=== PATIENT | male | born 1965 | race Caucasian/White ===

== ENCOUNTER 2016-09-20 15:02 | Inpatient (IN) ==
--- NOTE | 2016-09-20 15:23 | ED EKG INTERP ---
EKG Interpretation - EKG Time of EKG reading by physician:: 15:16 EKG Read and Signed by:: Erik Hicks EKG Interpretation (*Must complete 3 of following elements*): Abnormal ( possible lae; nonspecific intraventricular block; RVH; inferior infarct age undetermined; anterolateral infarct age undetermined) Rate: 113 Rhythm: sinus tachy [place]: normal QRS: other (RVH) Attestation - Scribe Verification/Attestation Scribe:: Linda Oquendo Acting as Scribe for:: Erik Hicks Scribe documention review:: This chart was documented by a scribe and accurately reflects the service the provider performed and the decisions made by the provider.
[2016-09-20 15:43] LABS: MANUAL DIFF NEEDED? NO
[2016-09-20 15:53] LABS: BASO% 0.3 % (0.0-0.8); EOS# 0.09 X1000 (0.0-0.7); EOS% 1.2 % (0.0-10.0); HEMATOCRIT 43.5 % (42.0-52.0); HEMOGLOBIN 14.3 g/dL (14.0-18.0); LYMPH# 1.09 X1000 (1.2-3.4); LYMPH% 14.4 % (20.5-51.1); MCH 29.4 PG (27-31); MCHC 32.9 g/dL (33-37); MCV 89.5 FL (81-99); MONO# 0.44 X1000 (0.11-0.59); MONO% 5.8 % (1.7-9.3); NEUT% 78.3 % (42.2-75.2); PLT 231 X1000 (130-400); RBC 4.86 XMIL (4.7-6.1)
[2016-09-20 16:01] LABS: AGAP 12; ALBUMIN 3.9 g/dL (3.5-5.0); ALKALINE PHOSPHATASE 145 U/L (32-122); BUN 27 mg/dL (8-22); CALCIUM 8.6 mg/dL (8.8-10.2); CHLORIDE 96 mmol/L (98-107); CK PROFILE 258 U/L (24-204); COSMO 292; GOT 30 U/L (10-34); GPT 31 U/L (10-44); MAGNESIUM 1.8 mg/dL (1.5-2.7); SODIUM 136 mmol/L (136-145); TCO2 28 mmol/L (25-35); TOTAL BILIRUBIN 0.69 mg/dL (0.20-1.00); TOTAL PROTEIN 6.8 g/dL (6.3-8.3)
[2016-09-20 16:12] LABS: INR 1.05; PROTIME 10.7 Seconds (9.2-11.7); PTT 22.6 Seconds (22.0-36.0)
[2016-09-20 16:37] LABS: CK INDEX 4.2 (0.0-2.5); CK-MB 10.86 ng/mL (0.0-5.0)
--- NOTE | 2016-09-20 16:55 | Diag Imaging Result Document ---
PROCEDURE NAME: CHEST-2 VIEWS - 09/20/2016 TWO VIEWS OF THE CHEST: FINDINGS: There are small pleural effusions. The heart size is at the upper limits of normal. There is a pacemaker on the left. There is no evidence of acute pulmonary disease. IMPRESSION: Small bilateral pleural effusions.
[2016-09-20] MEDS ORDERED: NS 1,000 ML IV ONE (17:29)
[2016-09-20] MEDS ORDERED: HUMULIN R IV ONE (17:40)
[2016-09-20] MEDS ORDERED: LASIX IV ONE (17:40)
[2016-09-20] MEDS ORDERED: NITROGLYCERIN TOP ONE (17:42)
--- NOTE | 2016-09-20 17:42 | PROVIDER DOCUMENTATION ---
HPI-Chest Pain - General Source: patient - History of Present Illness-CP Location: reports: central Chest Pain Radiation: reports: no radiation Quality of Pain: reports: tightness Severity in ED: moderate <Linda Oquendo - Last Filed: 09/20/16 17:44> <Aba Porter - Last Filed: 09/20/16 18:08> <Erik Hicks - Last Filed: 09/20/16 18:19> - General Chief Complaint: Chest Pain Stated Complaint: CP Time Seen by Provider: 09/20/16 17:27 Allergies/Adverse Reactions: Patient Allergies Allergy/AdvReac Type Severity Reaction Status Date / Time Sulfa (Sulfonamide AdvReac Intermediate NAUSEA/VOMI Verified 09/20/16 18:01 Antibiotics) TING Home Medications: Home Medication List Medication Instructions Recorded Confirmed Last Taken Type ENALApril [Vasotec] 20 mg PO BID 12/15/12 12/27/13 12/27/13 History Glimepiride 4 mg PO DAILY 12/15/12 12/27/13 12/27/13 History Metformin [Glucophage] 500 mg PO BID CC 12/15/12 12/27/13 12/27/13 History Spironolactone 50 mg PO HS 12/15/12 12/27/13 12/27/13 History Carvedilol [Coreg] 6.25 mg PO BID 09/30/13 12/27/13 12/27/13 History Esomeprazole [Nexium] 40 mg PO DAILY 09/30/13 12/27/13 12/27/13 History Furosemide [Lasix] 60 mg PO BID #60 tablet 12/30/13 Unknown Rx Insulin Aspart Prot/Insuln Asp 15 unit SQ QAM #2 vial 12/30/13 Unknown Rx [Novolog Mix 70-30 Vial] Insulin NPH Hum/Reg Insulin Hm 10 unit SQ QPM #0 ml 12/30/13 Unknown Rx [Novolin 70-30 100 Unit/ml Vial] - History of Present Illness-CP Nature of Presenting Problem: Hx of chf and pacemaker that presents to er with cc of cp x 1 week intermittent lasting 1 hour at a time reports tightness. Reports sob,orthopnea,pnd,edema, weight gain 6 lbs in a week, and leg cramps. 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 ( Linad Oquendo) Review of Systems - Adult - REVIEW OF SYSTEMS - ADULT Constitutional: denies: chills, fever, fatique Eyes: reports: no symptoms reported Ears, Nose, Mouth & Throat: denies: ear pain, sinus problem, throat pain Cardiovascular: reports: chest pain, edema, orthopnea, PND. denies: heart murmur, irregular heart rate, palpitations, syncope Respiratory: reports: shortness of breath. denies: cough, pleurisy, wheezing Gastrointestinal: denies: abdominal pain, hematemesis, diarrhea, nausea, vomiting Genitourinary: reports: no symptoms reported Musculoskeletal: reports: frequent leg cramps. denies: bone pain, joint swelling, neck pain Integumentary: denies: hives, hair loss, mole changes Neurological: denies: dizziness/vertigo, numbness, paresthesia, tremors Psychiatric: denies: anti-depressant use, insomnia, panic attacks Endocrine: denies: change in skin pigment, cold intolerance, heat intolerance, increased thirst, polyuria Hematologic/Lymphatic: reports: no symptoms reported Allergic/Immunologic: reports: no symptoms reported All Other Systems: Reviewed and Negative <Linda Oquendo - Last Filed: 09/20/16 17:44> Past History - Adult - PAST MEDICAL HISTORY-ADULT Review of Records: reports: Nursing Assessment Review, Medications Reviewed Major Childhood Illnesses: reports: denies history Cardiovascular: reports: CAD, CHF, HTN, hyperlipidemia Respiratory: reports: other (sleep apnea) Gastrointestinal: reports: denies history Obstetrical/Gynecological: reports: denies history Genitourinary: reports: denies history Musculoskeletal: reports: denies history Neurological: reports: denies history Psychiatric: reports: denies history Endocrine/Immune: reports: Diabetes Other Conditions: reports: denies history - PRIOR SURGERIES/PROCEDURES Surgical/Procedure History: reports: appendectomy, other (pacemaker) - PRIOR HOSPITALIZATIONS Prior Hospitalizations: reports: none - IMMUNIZATION STATUS Childhood Immunizations: See Nurse Assessment Flu Vaccine: See Nurse Assessment - FAMILY HISTORY Family History: reviewed, not pertinent - SOCIAL HISTORY Smoking: less than 1 pack/day Provider spent 3-5 mins advising pt. on dangers of tobacco.: Discussed manners to quit use, and f/u contacts for add'l counseling. Substance Use: none/never <Linda Oquendo - Last Filed: 09/20/16 17:44> Physical Exam-General - PHYSICAL EXAM-ADULT Initial Vital Signs Reviewed: Yes - CONSTITUTIONAL General Appearance: appears well, alert, mild distress - EYES Eyes: PERRL/EOMI - HEAD, EARS, NOSE, MOUTH & THROAT HENMT: moist mucous membranes, TMs normal, pharynx normal - NECK Neck: non-tender, full range of motion, supple - RESPIRATORY Respiratory: chest non-tender, lungs clear, normal breath sounds, no pleuratic chest pain - CARDIOVASCULAR Cardiovascular: JVD, tachycardia - CHEST (BREASTS) Chest/Breast: other (healed scar from pacemaker left chest) - GASTROINTESTINAL (ABDOMEN) Abdominal Exam: normal bowel sounds, non tender, soft, no organomegaly, no pulsatile mass - LYMPHATIC Lymphatic: no adenopathy - MUSCULOSKELETAL Back Exam: normal inspection, no CVA tenderness, no vertebral tenderness Extremity: normal range of motion, non-tender, normal gait, no calf tenderness, normal capillary refill, pedal edema (4+ bilateral) Peripheral Pulses: dorsalis-pedis (R): 2+, dorsalis-pedis (L): 2+ - SKIN Integumentary: normal color, normal turgor, warm/dry - PSYCHIATRIC Psych/Mental Status: normal mood/affect, normal thought content, normal thought process, oriented x 3 <Linda Oquendo - Last Filed: 09/20/16 17:44> Progress - XRAY 1 XRAY: Bilateral XRAY Study: Chest Impression: Abnormal (small bilateral pleural effusions) <Linda Oquendo - Last Filed: 09/20/16 17:44> - CONSULTS/PCP/HOSPITALIST Notification #1 *Consult/PCP/Hospitalist*: Dr. Blank Time Discussed: 18:07 Consult Disposition: Admit - CHANGE OF SHIFT REPORT (ED Provider) Report Given and Care Transferred to:: Dr. López Time of Transfer: 18:00 Items Pending: Physician Consult/Arrival <Aba Porter - Last Filed: 09/20/16 18:08> - CONSULTS/PCP/HOSPITALIST Notification #1 *Consult/PCP/Hospitalist*: Dann Moran Discussed: 18:18 Consult Disposition: Will see in ED, Admit <Erik Hicks - Last Filed: 09/20/16 18:19> - PLAN OF CARE/RESULTS Progress/Plan/Lab Results: Orders Category Date Time Status CHEST-2 VIEWS [RAD] Stat Exams 09/20/16 15:19 Completed CBC WITH ELECTRONIC DIFF [HEME] Stat Lab 09/20/16 15:25 Completed CK PROFILE [SP CHEM] Stat Lab 09/20/16 15:25 Completed COMPREHENSIVE METABOLIC PANEL [CHEM] Stat Lab 09/20/16 15:25 Completed D-DIMER [CHEM] Stat Lab 09/20/16 15:25 Completed MAGNESIUM [CHEM] Stat Lab 09/20/16 15:25 Completed PRO B-NATRIURETIC PEPTIDE Stat Lab 09/20/16 15:25 Completed PROTIME WITH INR [COAG] Stat Lab 09/20/16 15:25 Completed PTT [COAG] Stat Lab 09/20/16 15:25 Completed TROPONIN T Stat Lab 09/20/16 15:25 Completed 0.9% Sodium Chloride Inj [Ns] 1,000 ml Med 09/20/16 17:29 Active IV 999 mls/hr EKG [EKG] Stat Ther 09/20/16 15:19 Ordered Vital Signs - 24 hr 09/20/16 15:11 Temperature 98.1 F Pulse Rate 112 H Respiratory 18 Rate Blood Pressure 139/86 O2 Sat by Pulse 100 Oximetry Laboratory Tests 09/20/16 09/20/16 09/20/16 15:25 15:25 15:25 WBC 7.58 RBC 4.86 Hgb 14.3 Hct 43.5 MCV 89.5 MCH 29.4 MCHC 32.9 L RDW Std Deviation 13.1 Plt Count 231 MPV 11.0 H Immature Gran % (Auto) 0.0 Neut % (Auto) 78.3 H Lymph % (Auto) 14.4 L Calvert % (Auto) 5.8 Eos % (Auto) 1.2 Baso % (Auto) 0.3 Immature Gran # (Auto) 0.00 Neut # (Auto) 5.94 Lymph # (Auto) 1.09 L Calvert # (Auto) 0.44 Eos # (Auto) 0.09 Baso # (Auto) 0.02 PT INR PTT (Actin FS) D-Dimer 1.79 H Sodium 136 Potassium 4.0 Chloride 96 L Carbon Dioxide 28 Anion Gap 12 BUN 27 H Creatinine 1.6 H BUN/Creatinine Ratio 17 Glucose 373 H Calculated Osmolality 292 Calcium 8.6 L Magnesium 1.8 Total Bilirubin 0.69 AST 30 ALT 31 Alkaline Phosphatase 145 H Creatine Kinase 258 H Creatine Kinase Index 4.2 H CK-MB (CK-2) 10.86 H Troponin T Vrf-B-Jistbikuxyb Pept Total Protein 6.8 Albumin 3.9 Globulin 2.9 Albumin/Globulin Ratio 1.3 09/20/16 09/20/16 09/20/16 15:25 15:25 15:25 WBC RBC Hgb Hct MCV MCH MCHC RDW Std Deviation Plt Count MPV Immature Gran % (Auto) Neut % (Auto) Lymph % (Auto) Calvert % (Auto) Eos % (Auto) Baso % (Auto) Immature Gran # (Auto) Neut # (Auto) Lymph # (Auto) Calvert # (Auto) Eos # (Auto) Baso # (Auto) PT 10.7 INR 1.05 PTT (Actin FS) 22.6 D-Dimer Sodium Potassium Chloride Carbon Dioxide Anion Gap BUN Creatinine BUN/Creatinine Ratio Glucose Calculated Osmolality Calcium Magnesium Total Bilirubin AST ALT Alkaline Phosphatase Creatine Kinase Creatine Kinase Index CK-MB (CK-2) Troponin T 0.020 Awn-V-Vzqopriikpa Pept 1344 H Total Protein Albumin Globulin Albumin/Globulin Ratio (Linda Oquendo) Departure <Linda Oquendo - Last Filed: 09/20/16 17:44> - Departure Time of Disposition Order: 18:08 Certified Medical Emergency: Emergent <Aba Porter - Last Filed: 09/20/16 18:08> - Departure Time of Disposition Order: 18:19 Certified Medical Emergency: Emergent <Erik Hicks - Last Filed: 09/20/16 18:19> - Departure DIAGNOSIS: Renal insufficiency CHF (congestive heart failure) Qualifiers: Congestive heart failure type: unspecified congestive heart failure type Congestive heart failure chronicity: unspecified congestive heart failure chronicity Qualified Code(s): I50.9 - Heart failure, unspecified Disposition: ADMITTED INPATIENT 09 Condition: Stable Referrals: Rayo Pagan MD [Primary Care Provider] - Attestation - Scribe Verification/Attestation Scribe:: Linda Oquendo Acting as Scribe for:: Erik Hicks Scribe documention review:: This chart was documented by a scribe and accurately reflects the service the provider performed and the decisions made by the provider. <Linda Oquendo - Last Filed: 09/20/16 17:44> - Scribe Verification/Attestation Scribe:: Aba Porter Acting as Scribe for:: Syd López Scribe documention review:: This chart was documented by a scribe and accurately reflects the service the provider performed and the decisions made by the provider. - Scribe Verification/Attestation #2 Shift Change Time: 18:00 Scribe Name: Aba Porter Acting as Scribe for:: Syd López <Aba Porter - Last Filed: 09/20/16 18:08> Physician Attestation - Physician Attestation I, the provider, attest to the following statement:: Erik Hicks Physician documentation Attestation:: This documentation recorded by the scribe accurately reflects the service I personally performed and the decisions made by me. <Erik Hicks - Last Filed: 09/20/16 18:19>
[2016-09-20] MEDS ORDERED: ASPIRIN ONE (17:50)
[2016-09-20] MEDS ORDERED: ASPIRIN PO ONE (18:08)
[2016-09-20] MEDS ORDERED: NORCO-5 PO ONE (20:46)
[2016-09-20 21:17] LABS: HEMOGLOBIN A1C 11.2 % (4.8-6.0)
[2016-09-20] MEDS ORDERED: VOLTAREN 1% GEL TOP ONE (22:56)
[2016-09-20] MEDS ORDERED: ZOFRAN IV PRN (22:56)
[2016-09-20] MEDS ORDERED: SALINE LOCK IV FLUID XX ONE (22:56)
[2016-09-20] MEDS ORDERED: TYLENOL PO PRN (22:56)
[2016-09-20] MEDS ORDERED: NORCO-7.5 PO PRN (22:56)
[2016-09-21 00:21] LABS: AGAP 14; BUN 29 mg/dL (8-22); CALCIUM 8.9 mg/dL (8.8-10.2); CHLORIDE 97 mmol/L (98-107); CK PROFILE 205 U/L (24-204); COSMO 288; MAGNESIUM 1.8 mg/dL (1.5-2.7); SODIUM 140 mmol/L (136-145); TCO2 29 mmol/L (25-35)
[2016-09-21 00:42] LABS: CK INDEX 4.4 (0.0-2.5); CK-MB 9.03 ng/mL (0.0-5.0)
[2016-09-21] MEDS: LASIX IV SCH ×4 (00:43→20:11)
[2016-09-21] MEDS: SODIUM CHLORIDE 0.9% INJ SCH ×2 (00:43→20:11)
[2016-09-21] MEDS: PROTONIX IV SCH ×2 (00:43→20:11)
[2016-09-21 01:47] LABS: URINE CULTURE NEEDED? NO; URINE MICRO REVIEW NEEDED? NO; URINE SOURCE CLEAN CATCH
[2016-09-21 01:52] LABS: BILIRUBIN URINE NEGATIVE (NEGATIVE); BLOOD URINE SMALL (NEGATIVE); COLOR YELLOW; GLUCOSE URINE TRACE mg/dL (NEGATIVE); LEUKOCYTES URINE NEGATIVE (NEGATIVE); NITRITE URINE NEGATIVE (NEGATIVE); PH URINE 5.5; PROTEIN URINE 30 mg/dL (NEGATIVE); SP GRAVITY URINE 1.015; TURBIDITY URINE CLEAR (CLEAR); UROBILINOGEN URINE NORMAL (NORMAL)
[2016-09-21 01:53] LABS: UR EPITHELIAL CELLS <10 /HPF (<10); URINE BACTERIA NEGATIVE /HPF; URINE RBC <10 /HPF (<10); URINE WBC <10 /HPF (<10)
[2016-09-21] MEDS: HUMALOG SUBQ SCH ×5 (06:22→23:05)
[2016-09-21 07:12] LABS: MANUAL DIFF NEEDED? NO
--- NOTE | 2016-09-21 07:12 | HISTORY AND PHYSICAL ---
ADDENDUM TO HISTORY AND PHYSICAL: I would like to add that: We have placed an order to have the patient's pacemaker/defibrillator interrogated. The patient did report that he felt over the past week or so that he has had an irregular heartbeat and felt this might be related to his pacemaker. He states that his defibrillator has not fired. This order has been placed and we will await their evaluation of this pacemaker as well as cardiology's evaluation and our recommendations. Dictated by MARIMAR Velazco for Lance Killian MD
[2016-09-21 07:20] LABS: BASO% 0.3 % (0.0-0.8); EOS# 0.07 X1000 (0.0-0.7); EOS% 0.9 % (0.0-10.0); HEMATOCRIT 40.2 % (42.0-52.0); HEMOGLOBIN 13.1 g/dL (14.0-18.0); LYMPH# 0.78 X1000 (1.2-3.4); LYMPH% 10.2 % (20.5-51.1); MCH 29.2 PG (27-31); MCHC 32.6 g/dL (33-37); MCV 89.7 FL (81-99); MONO# 0.43 X1000 (0.11-0.59); MONO% 5.7 % (1.7-9.3); MPV 11.1 FL (7.4-10.4); NEUT% 82.9 % (42.2-75.2); PLT 206 X1000 (130-400); RBC 4.48 XMIL (4.7-6.1)
[2016-09-21 07:46] LABS: AGAP 14; BUN 31 mg/dL (8-22); CALCIUM 8.8 mg/dL (8.8-10.2); CHLORIDE 96 mmol/L (98-107); COSMO 297; MAGNESIUM 1.7 mg/dL (1.5-2.7); POTASSIUM 4.1 mmol/L (3.5-5.1); SODIUM 137 mmol/L (136-145); TCO2 27 mmol/L (25-35)
--- NOTE | 2016-09-21 08:08 | HISTORY AND PHYSICAL ---
PRIMARY CARE PROVIDER: Rayo Pagan MD SNOW REMOVAL/PLOWING: Tom Mcallister MD CHIEF COMPLAINT: Chest pain. HISTORY OF PRESENT ILLNESS: Mr. Ace is a 51-year-old male who presented to the emergency room [facility] with the complaints of intermittent chest pain times one week. The patient reports that the chest pain is a tightness in nature and is across his left chest. He does not report any radiation of this pain at this time. He does report associated symptoms of shortness of breath times three days, palpitations, and bilateral lower leg swelling and cramps. The patient reported that recently approximately one month ago he was treated for a cold/upper respiratory infection for which he was placed on a decongestant. The patient states that since then he has not been well. He reports that he did have some complications with urinary output secondary to decongestant use, though reported that he was given a prescription for Flomax and that this has since improved. He does report that he normally takes Lasix 20 mg twice a day, except that over the past two weeks due to increased swelling in his legs he has increased this himself to 60 mg p.o. daily. The patient states that he does have sleep apnea and does use two pillows to sleep at night. The patient did report that his sleep apnea has improved since he has lost 70 pounds over the past eight months. He also states that he is supposed to take Enalapril and Coreg for his congestive heart failure and hypertension, though states that his blood pressure is normally within normal limits and because of this he decided not to take these medicines. The patient does state that he has felt like he has had an irregular heart beat at times over the past week. He states that he thinks his pacemaker may not be working right. He did report that he did try to contact Dr. Mcallister's office to come in and have his pacemaker checked though due to scheduling this was unable to be performed. The patient does have a known history of having congestive heart failure with severe dilation with severely depressed left ventricular function and an ejection fraction of 20% on his last echocardiogram in December of 2015. The patient denies any headache, dizziness, light-headedness, cough, abdominal pain, nausea, vomiting, diarrhea or constipation. He denies any bloody or black, tarry stools. He denies any dysuria or urinary frequency. The patient states that he has been having adequate urine output. Other than the swelling and cramping in his legs, the patient denies any numbness or tingling in the extremities. Upon evaluation in the emergency room the patient was found to have an elevated CK and a troponin of 0.02. The patient's EKG did show sinus tachycardia at a rate of 113 with a nonspecific intraventricular block and right ventricular hypertrophy. He also does appear to have an acute kidney injury, as well as controlled diabetes mellitus. At this time we will admit the patient for his congestive heart failure, acute kidney injury, and uncontrolled diabetes mellitus type 2. REVIEW OF SYSTEMS: A 14-point review of systems was conducted with the patient and all were negative except for pertinent positives mentioned in the above HPI. PAST MEDICAL HISTORY: 1. Congestive heart failure with severe dilation and severely depressed left ventricular function with last known ejection fraction of 20%, with echo in December of 2015. 2. Diabetes mellitus type 2. 3. Hypertension. 4. Gastroesophageal reflux disease. PAST SURGICAL HISTORY: 1. Appendectomy. 2. Kidney stones. 3. Pacemaker placement. FAMILY HISTORY: The patient reports that he does have a significant family medical history of heart disease. He reports that his father did have heart disease and had several heart attacks and ultimately secondary to a heart attack. He reports that his father also had a history of heart disease as well as lung cancer and that there is also some family history of diabetes mellitus. SOCIAL HISTORY: The patient is a smoker. He has smoked approximately 3 packs per day for 20 years, though has recently reduced this down to 3 cigarettes per day and is trying to quit, and has recently tried Wellbutrin and Chantix with assistance of this, though is not using these medications at the present time. The patient denies any alcohol or illicit drug use. 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 ALLERGIES: The patient reports an allergy to sulfa. HOME MEDICATIONS: 1. Lasix 20 mg b.i.d. 2. NovoLog mix 70/30, 30 units subcutaneous q.a.m. 3. Novolin 70/30, 35 units subcutaneous q.p.m. 4. Metformin 500 mg p.o. b.i.d. 5. Potassium chloride 10 mEq p.o. daily. 6. Spironolactone 50 mg p.o. at bedtime. 7. Flomax 0.4 mg p.o. daily. 8. Enalapril. The dose of this medication is unknown, though the patient states he is prescribed this medication and is supposed to take it though does not. 9. Coreg. The dose of this medication is unknown, though the patient states he is prescribed this medication and is supposed to take it though does not. DIAGNOSTIC DATA/ LABORATORY RESULTS: White blood cell count 7.5. Hemoglobin 14.3. Hematocrit 43.5. Platelet count 231,000. PT 10.7. INR 1.05. PTT 22.6. D-dimer 1.79. Sodium 136. Potassium 4. Chloride 96. Bicarb 28. BUN 27. Creatinine 1.6. Glucose 373. Hemoglobin A1c 11.2. Calcium 8.6. Magnesium 1.8. Total bilirubin 0.69. AST 30. ALT 31. Alkaline phosphatase is 145. CK is 258. CK index 4.2. CK-MB 10.86. Troponin 0.020. ProBNP 1344. Albumin 3.9. Urinalysis was obtained via clean catch and was positive for protein and a small amount of blood, though otherwise was normal. The chest x-ray shows small bilateral pleural effusions. The heart is at its upper limits of normal. There is a pacemaker on the left noted. No evidence of acute pulmonary disease identified. The EKG showed sinus tachycardia at a rate of 113 with possible left atrial enlargement, nonspecific intraventricular block and right ventricular hypertrophy. The QTc was 540. PHYSICAL EXAMINATION: VITAL SIGNS: Temperature is 97.5, heart rate 104, respirations 20, and blood pressure is 123/73. The oxygen saturation is 97% on room air. GENERAL: Mr. Ace is a very pleasant, well-nourished, well-developed 51-year-old male who is resting comfortably on the ER stretcher in no acute distress. He is awake, alert, and able to answer all questions appropriately. HEENT: The head is normocephalic and atraumatic. The pupils are equal, round, and reactive to light, 3 mm bilaterally and brisk. The subconjunctivae are pink. The oral mucosa is moist. The oropharynx is clear. NECK: Supple. The trachea is midline. There is some slight JVD noted upon examination. No carotid bruits are noted upon auscultation bilaterally. CARDIOVASCULAR: The patient has a normal S1 and S2. No murmurs, rubs, or gallops are appreciated, with a slightly tachycardic rate that is regular. PULMONARY: The patient has symmetrical chest expansion bilaterally. The lung sounds are clear to auscultation bilaterally in full patel. ABDOMEN: The abdomen is soft, nontender, and nondistended. Bowel sounds are present in all four quadrants. EXTREMITIES: The patient does have 1+ pitting edema noted in the bilateral lower extremities from approximately knees down. Though the patient does not report tenderness in this area, he does report cramping in his bilateral lower extremities. Pulses, motor, and sensory is intact in all extremities as well. Pedal pulses are 3+ bilaterally. Capillary refill is less than 3. INTEGUMENTARY: The patient's skin is pink, warm, dry, and intact. No lesions or sores are noted except for the patient does have an approximately quarter-sized diabetic pressure wound noted to the plantar surface of his left foot. Though at this point it is open it does not appear to have drainage or a foul odor and there is no erythema noted at this time. The patient also has another diabetic pressure wound noted on his third right toe. This is approximately slightly larger than the size of the end of an eraser. Though this wound has no drainage, warmth or erythema noted as well. NEUROLOGICAL: The patient is alert and oriented x3. Cranial nerves II through XII are grossly intact. ASSESSMENT AND PLAN: 1. Congestive heart failure exacerbation. For this we will place a consult with Cardiology. We have ordered an echocardiogram to be performed in the morning. We will do a series of cardiac enzymes and repeat an electrocardiogram in the morning as well. We will give the patient Lasix 40 mg intravenous q.12 h. as well as Coreg 25 mg p.o. daily, and we will await Cardiology's evaluation and their further recommendations. The patient's D-dimer was slightly elevated though given the patient's current renal function we were not able to perform a CTA of the chest. We have placed orders for a V/Q scan of the lungs in the morning as well as bilateral lower extremity Doppler to rule out a deep venous thrombosis or pulmonary embolus. 2. Uncontrolled diabetes mellitus type 2. The patient's hemoglobin A1c was 11.2 and he was given 5 units of regular insulin intravenously in the emergency room, though the patient just prior to his arrival did take his long-acting insulin and did have a period of hypoglycemia in the emergency room and did have to be given crackers and used to bring this up. At this time the patient's blood sugar is at 154. We will continue him on sliding scale lispro insulin and will hold his metformin due to his renal function. 3. Acute kidney injury. The patient's current creatinine is 1.6. Previously in November of 2015 his last creatinine was 0.9. At this time we will avoid any nephrotoxic medication and renally dose current medications as necessary. 4. Hypertension. We will continue with is Coreg as previously mentioned and continue to follow. 5. Gastroesophageal reflux disease. We will continue with Protonix 40 mg intravenous q.24 h. 6. Diabetic foot ulcers. The patient reports that he has currently been seeing Dr. Walter for treatment of his diabetic foot ulcer on his left plantar surface and the top of his right foot on his third toe. These areas do appear to be healing well. We have placed orders for wound care nurse consult while he is admitted to the hospital. The patient does report that he has another appointment to follow up with Dr. Walter in a few weeks, though during this time we will monitor his wounds for any need for further interventions. 7. The patient will be placed on the medical floor with telemetry, vital signs q.4 h. We will do strict intake and output and daily weights. He is on a diabetic diet. We will repeat a complete blood count, basic metabolic profile, and magnesium in the morning and will trend his cardiac enzymes. 8. Further orders and recommendations pending the hospital course, diagnostic studies, and physician evaluation. Dictated by MARIMAR Velazco for Lance Killian MD
[2016-09-21] MEDS: ASPIRIN PO SCH (08:29)
[2016-09-21] MEDS: COREG PO SCH ×2 (08:29→18:27)
[2016-09-21] MEDS: HEPARIN SUBQ SCH ×2 (08:29→20:11)
--- NOTE | 2016-09-21 14:54 | CONSULTATION ---
DATE OF CONSULTATION: 09/21/2016 INDICATION FOR THE CONSULTATION: CHF. HISTORY OF PRESENT ILLNESS: Mr. Ace is a 51-year-old, white male with a history of dilated cardiomyopathy, normally followed by Dr. Mcallister. Last clinic visit was in the and of May 2016. He presented with shortness of breath that has been worsening over the last week or so as well as swelling. He denies any orthopnea. He uses a CPAP at home. He reports noncompliance with his beta sohail as well as his LEATHA inhibitor. He has not had any recent fevers. PAST MEDICAL HISTORY: 1. Dilated cardiomyopathy with severe dilatation, reduced EF, last echo in December 2015 showed an EF of 20%. 2. Type 2 diabetes. 3. Hypertension. 4. Reflux disease. 5. Mild coronary artery disease as detailed by cardiac catheterization in 2013. 6. Sleep apnea. SOCIAL HISTORY: He works as a painter helper. He does smoke. FAMILY HISTORY: Significant for heart attack in his father as well as, I believe, lung cancer. REVIEW OF SYSTEMS: A 10 system review of systems is negative except for those things mentioned in HPI. PHYSICAL EXAMINATION: Vital Signs: He is afebrile. Heart rate 98, blood pressure 121/66. Thus far his I's and O's have been negative 1900 mL with 2 continent voids not measured. General: No acute distress. HEENT: Oropharynx is moist. Normal dentition. Eye examination is pink conjunctivae, white sclerae. Neck: No obvious thyromegaly or thyroid tenderness. Cardiovascular: Regular rate and rhythm. No obvious murmurs. No S3. He has no S4. 1+ lower extremity edema. Chest: Clear bilaterally. No increased work of breathing. Abdomen: Soft, nontender, nondistended. No obvious organomegaly. Skin Exam: Warm and dry throughout without any rashes. Neurological: Moving all extremities well. Cranial nerves 2-12 are intact without any sensation deficits. Psychiatric: Alert and oriented, pleasant. Normal mood and affect. PERTINENT DATA: His electrocardiogram demonstrates what appears to be sinus rhythm and ventricular paced. His chest x-ray shows small bilateral pleural effusions. His white count is 7.6, hematocrit 40, platelet count is 206,000. His sodium is 137, potassium 4.1, BUN 31, creatinine 1.5, this is a low slightly higher than the 0.9 he had in November 2015. His cardiac enzymes are negative. His magnesium level is 1.7. His proBNP is 1344. ASSESSMENT: 1. Acute on chronic systolic heart failure. 2. Noncompliance with medications. PLAN: I will initiate Entresto at b.i.d. We will continue him on his current rate of diuresis as he seems to be diuresing based on his I's and O's. Hopefully we can reinitiate beta- sohail at the time of discharge.
[2016-09-21] MEDS ORDERED: NOVOLOG MIX 70/30 (PARKWAY) SUBQ SCH (15:45)
--- NOTE | 2016-09-21 16:11 | ECHO REPORT ---
ORDER DATE: 09/21/2016 INDICATION: Acute systolic heart failure. FINDINGS: 1. The right atrium is mildly enlarged. The dimension of 4.3 cm. Linear artifact consistent with device leads are noted in the right heart chambers. 2. Mild tricuspid regurgitation. RV systolic pressure of 47. 3. There is severe reduction in RV systolic function with dilation of the right ventricle. 4. Mild pulmonic insufficiency. 5. Severe enlargement of the left atrium at 5.7 cm. 6. No mitral prolapse. Mild mitral regurgitation with apical tenting of the mitral leaflets. There is no evidence of mitral stenosis. 7. Severe dilatation of the left ventricle with an end-diastolic dimension of 7.4. No evidence of left ventricular hypertrophy. Posterior and interventricular septal wall thickness of 0.8 cm each. Severe reduction in LV systolic function. Estimated EF of 10-15% with severe global hypokinesis. 8. Aortic valve opens well. It is trileaflet. No evidence of stenosis or insufficiency. 9. Aorta appears normal in visualized segments. 10. There is no evidence of pericardial effusion.
--- NOTE | 2016-09-21 17:04 | PROGRESS NOTE ---
DATE: 09/21/2016 SUBJECTIVE: Today Mr. Ace referred to be doing a little better. He thinks the swelling of the legs is getting better. OBJECTIVE: Vital signs: Blood pressure is 121/66, pulse of 98, respiration is 21, temperature is 97.4 degrees. General: Mr. Ace is a 51-year-old male. He was sitting up in a chair. He was not in any distress. HEENT: Mucosa is pink and moist. Anicteric. Acyanotic. Neck: Supple. Chest: Good air entry bilateral but there are bilateral end-expiratory coarse crackles. Cardiovascular: Regular rate and rhythm. There is a positive S3. No murmurs. Abdomen: Soft, nontender. Extremities: About 2+ pedal edema. MANAGER JAVA: Patient is alert and oriented x4. There is no focal neurological deficit. DIAGNOSTIC STUDIES: A chest x-ray which was done on presentation shows small bilateral pleural effusions. LABORATORY DATA: Has been reviewed. Nothing of concern. Her creatinine is getting down to 1.5 from 1.6. BUN went slightly up to 31. Glucose was 392. A1c is 11.2. ASSESSMENT: 1. Respiratory distress on presentation, likely due to pulmonary edema. 2. Acute on chronic congestive heart failure. Ejection fraction of 20% on a recent echo and also on an echo done in December 2005. 3. Uncontrolled diabetes mellitus with a presenting A1c of 11.2. 4. Severe dilated cardiomyopathy. Etiology is unclear. 5. Mild coronary artery disease. 6. Acute kidney injury, likely from cardiorenal physiology. PLAN: So general plan: Patient has been started on Entresto by Cardiology. We will therefore withhold the Aldactone and see how he reacts to the new medication before we introduce anything else. We will continue with the Lasix and the other medications that patient has on board. In terms of the diabetes, the patient is currently on sliding scale. We will initiate his home insulin regimen which is 70/30, 35 units at night and 30 units in the morning.
[2016-09-21] MEDS: ENTRESTO 24 MG-26 MG TABLET PO SCH (20:11)
[2016-09-21] MEDS ORDERED: ALDACTONE PO SCH (21:00)
[2016-09-21] MEDS ORDERED: INSULIN PEN NEEDLES ONE (23:00)
[2016-09-21] MEDS: HUMULIN 70/30 SUBQ SCH (23:04)
[2016-09-22] MEDS: HUMALOG SUBQ SCH ×4 (06:46→21:26)
[2016-09-22 07:26] LABS: MANUAL DIFF NEEDED? NO
[2016-09-22 07:38] LABS: BASO% 0.3 % (0.0-0.8); EOS# 0.12 X1000 (0.0-0.7); EOS% 1.3 % (0.0-10.0); HEMATOCRIT 45.7 % (42.0-52.0); HEMOGLOBIN 14.9 g/dL (14.0-18.0); LYMPH# 1.07 X1000 (1.2-3.4); LYMPH% 11.8 % (20.5-51.1); MCHC 32.6 g/dL (33-37); MCV 89.1 FL (81-99); MONO# 0.57 X1000 (0.11-0.59); MONO% 6.3 % (1.7-9.3); MPV 10.9 FL (7.4-10.4); NEUT% 80.3 % (42.2-75.2); PLT 218 X1000 (130-400); RBC 5.13 XMIL (4.7-6.1)
[2016-09-22 08:20] LABS: AGAP 12; BUN 27 mg/dL (8-22); CALCIUM 8.8 mg/dL (8.8-10.2); CHLORIDE 97 mmol/L (98-107); COSMO 278; SODIUM 136 mmol/L (136-145); TCO2 27 mmol/L (25-35)
[2016-09-22] MEDS: COREG PO SCH (10:01)
[2016-09-22] MEDS: ASPIRIN PO SCH (10:01)
[2016-09-22] MEDS: HEPARIN SUBQ SCH ×2 (10:01→21:35)
[2016-09-22] MEDS: ENTRESTO 24 MG-26 MG TABLET PO SCH ×2 (10:01→21:35)
[2016-09-22] MEDS: LASIX IV SCH ×2 (10:02→21:35)
[2016-09-22] MEDS: HUMULIN 70/30 SUBQ SCH ×2 (10:02→21:28)
--- NOTE | 2016-09-22 11:25 | Diag Imaging Result Document ---
PROCEDURE NAME: CHEST-2 VIEWS - 09/22/2016 FRONTAL AND LATERAL CHEST, TWO VIEWS: COMPARISON: Compared to 09/20/2016. FINDINGS: The patient has a left-sided pacemaker. The lungs are well expanded. The heart is borderline mildly prominent. The vessels are not distended. Questionable tiny effusions. No consolidation. IMPRESSION: Stable chest.
--- NOTE | 2016-09-22 12:59 | Diag Imaging Result Document ---
PROCEDURE NAME: LUNG SCAN / VQ - 09/21/2016 NUCLEAR MEDICINE VENTILATION/PERFUSION LUNG SCAN: FINDINGS: A dose of 36.3 mCi DTPA administered for the ventilation images and 5.6 mCi MAA given IV for the perfusion images. Films correlated with a recent plain film from 09/22/2016. There are no wedged-shaped perfusion defects. No ventilation perfusion mismatches. IMPRESSION: No evidence of a pulmonary embolus.
--- NOTE | 2016-09-22 13:02 | PROGRESS NOTE ---
DATE: 09/22/2016 SUBJECTIVE: Mr. carmona reports he feels a little bit better today. He is having a lot of coffee in the morning. He feels like he is having some issues with sinus drainage. Overall he thinks his swelling is better and he has had quite a bit of diuresis in the interim. PHYSICAL EXAMINATION: Vital signs: He is afebrile. His heart rate is in the low 100s. His blood pressure is 130/82. Intake and output: His I's and O's are negative 1800 mL measured but he has 5 continent voids not measured. General: No acute distress. Cardiovascular: He is in a regular rate and rhythm. He does sound to have an S3 present. He has 1+ bilateral lower extremity edema. His JVP is difficult to visualize. Chest Exam: Sounds clear. No increased work of breathing. Abdomen: Soft, nontender. Skin Exam: Warm and dry throughout. He does have some chronic venous stasis changes. PERTINENT DATA: White count is 9.1, hematocrit 45.7, platelet count is 218,000. Sodium 136, potassium 4, BUN 27, creatinine 1.4. Yesterday they were 31 and 1.5 respectively. ASSESSMENT: Acute on chronic systolic heart failure. PLAN: Patient did have an episode of nonsustained ventricular tachycardia last night around 8 beats in duration. I will add in some Aldactone in to his regimen at 12.5 mg daily. Likely we will need to increase his home furosemide at 40 mg b.i.d. We would like to add back in a beta- sohail, likely Coreg 3.125 b.i.d. before discharge home. Again proBNP will be checked in the morning.
[2016-09-22] MEDS: ALDACTONE PO SCH (14:31)
--- NOTE | 2016-09-22 16:08 | PROGRESS NOTE ---
DATE: 09/22/2016 SUBJECTIVE: Today Mr. Ace referred to be doing okay. Continued to have some baseline shortness of breath and the legs continue to have some swelling. Tobacco abuse. OBJECTIVE: Vital signs: Blood pressure is 134/79, pulse of 102, respirations 20, temperature is 97.8 degrees. General: Mr. Ace is a 51-year-old male. He was sitting up in the chair. No distress. HEENT: Mucosa is pink and moist. Anicteric and acyanotic. Neck: Supple. Chest: Good air entry bilaterally. There are a few coarse crepitations in the lower back. Cardiovascular: Regular rate and rhythm. There is still positive S3. No murmurs. Abdomen: Soft. Extremities: About 1 to 2+ pedal edema. CONTROL VALVE MECHANIC: Patient is alert and oriented. DIAGNOSTIC STUDIES: A chest x-ray done this morning shows vessels are not distended, questionable tiny effusions. No acute disease. LABORATORY DATA: CBC is reviewed, unremarkable. Chemistry reviewed. Creatinine is 1.4. Getting better. ASSESSMENT: 1. Respiratory distress on presentation, likely due to pulmonary edema. 2. Acute on chronic congestive heart failure. Ejection fraction is now 10-15% on echo done yesterday. 3. Severe dilated cardiomyopathy. Etiology is unclear. 4. Mild coronary artery disease. 5. Status post implantable cardioverter defibrillator. I got a call from the device stave mill hand yesterday and we are pending the device to be interrogated. The patient I understand had about 8 runs of ventricular tachycardia and the device did not go off. 6. Acute kidney injury. This is improving. Likely from cardiorenal physiology. 7. Diabetes mellitus, this is pretty much controlled here in the hospital. However, patient presented with A1c of 11.2, so I guess he was probably not very compliant with his medications. 8.Tobacco abuse. Patient has been given a patch of nicotine and he has been advised on smoking cessation. In general, Aldactone has been added. We will continue with Entresto and the other medications that have been recommended by Cardiology. [facility]
[2016-09-22] MEDS: SODIUM CHLORIDE 0.9% INJ SCH (21:35)
[2016-09-22] MEDS: PROTONIX IV SCH (21:35)
[2016-09-23] MEDS: HUMALOG SUBQ SCH ×2 (06:36→11:29)
[2016-09-23] MEDS: HUMULIN 70/30 SUBQ SCH (07:30)
[2016-09-23 08:09] LABS: AGAP 12; BUN 29 mg/dL (8-22); CALCIUM 8.6 mg/dL (8.8-10.2); CHLORIDE 97 mmol/L (98-107); COSMO 288; MAGNESIUM 1.8 mg/dL (1.5-2.7); POTASSIUM 4.2 mmol/L (3.5-5.1); SODIUM 138 mmol/L (136-145); TCO2 29 mmol/L (25-35)
[2016-09-23] MEDS: LASIX IV SCH (09:04)
[2016-09-23] MEDS: ENTRESTO 24 MG-26 MG TABLET PO SCH (09:05)
[2016-09-23] MEDS: ALDACTONE PO SCH (09:05)
[2016-09-23] MEDS: HEPARIN SUBQ SCH (09:05)
[2016-09-23] MEDS: ASPIRIN PO SCH (09:05)
--- NOTE | 2016-09-23 10:59 | EKG Report ---
Test Performed on : 09/20/2016 3:16:32 PM Test Reason : Chest Pain Blood Pressure : / mmHG Vent. Rate : 113 BPM Atrial Rate : 113 BPM P-R Int : 116 ms QRS Dur : 152 ms QT Int : 394 ms P-R-T Axes : 047 265 072 degrees QTc Int : 540 ms Sinus tachycardia. Possible Left atrial enlargement Nonspecific intraventricular block Right ventricular hypertrophy Inferior infarct , age undetermined Anterolateral infarct , age undetermined Abnormal ECG When compared with ECG of 29-DEC-2013 01:02, Significant changes have occurred Unconfirmed Result
[2016-09-23 16:05] VITALS: BP 138/83
--- NOTE | 2016-09-23 16:13 | PROGRESS NOTE ---
DATE: 09/23/2016 SUBJECTIVE: Mr. Ace is doing better today. He reports he is still urinating a significant amount. PHYSICAL EXAMINATION: Vital signs: He is afebrile. Heart rates in the low 100s. Blood pressure 133/77. His I's and O's have been negative over the course of the hospitalization. In addition, he has a number of continent voids not measured. Poor oral intake is measured. Generally: No acute distress. Cardiovascular: He is in a regular rate and rhythm. He has no murmurs. He has 1+ bilateral lower extremity edema. Chest: Clear bilaterally. No increased work of breathing. Abdomen: Soft, nontender. Skin Exam: Warm and dry throughout. PERTINENT DATA: His sodium is 138, potassium 4.2, BUN 29, creatinine 1.5, magnesium level is 1.8. ProBNP is 1138. ASSESSMENT: Acute systolic heart failure. PLAN: We have instituted medical therapy in this patient with IV diuretics. In addition, he was not on an LEATHA inhibitor or a beta-sohail. We have started him on Entresto as well as carvedilol. He is continued on Aldactone. I will make a followup appointment to see Dr. Mcallister within the next 2-3 weeks in the office. I believe he is safe for discharge. He is actually on a home diuretic dose of 40 mg in the morning and 20 mg in the afternoon. I would likely increase it to 40 mg b.i.d.
[2016-09-23] MEDS ORDERED: COREG PO SCH (21:00)
--- NOTE | 2016-09-24 10:14 | DISCHARGE SUMMARY ---
ADMISSION DATE: 09/20/2016 DISCHARGE DATE: 09/23/2016 CONSULTATION: Dr. Gianni Rosenberg with cardiology. PERTINENT PROCEDURES: 1. Echocardiogram showed an EF of 10% to 15% with severe global hypokinesis. 2. V/Q scan showed no evidence of pulmonary embolism. DISCHARGE DIAGNOSES: 1. Acute Respiratory Distress on presentation secondary to pulmonary edema, resolved. 2. Acute on chronic congestive heart failure with an ejection fraction of 10% to 15%. 3. Severe dilated cardiomyopathy with unclear etiology. Cardiology has added Aldactone to the patient's regimen at 12.5 mg daily. 4. Nonsustained ventricular tachycardia around 8 beats in duration, resolved. 5. Status post implantable cardioverter defibrillator. Again the patient did have an 8-beat run of ventricular tachycardia. The device did not go off. 6. Acute kidney injury improving, likely cardiorenal. 7. Diabetes mellitus. Controlled here in the hospital. However, has an A1c of 11.2. 8. Tobacco abuse. The patient has been advised against smoking cessation, as well as the means to quit. HOSPITAL COURSE: Briefly, Mr. Ace is a 51-year-old male, who carries a past medical history of congestive heart failure with severe depressed LV function and dilatation, diabetes mellitus type 2, hypertension, GERD, status post ICD placement. He presented to the ED with complaints of intermittent chest pain for 1 week. He reported it as tight in nature across the left side of his chest. There was no radiation. Associated symptoms were shortness of breath for 3 days, palpitations, bilateral lower extremity swelling and cramps. Patient also reported recent upper respiratory infection. He was placed on a decongestant that caused him to have urinary output secondary to the decongestant use. He was placed on Flomax for this and has since improved. In the ED patient was found have elevated CK and troponins. Patient' s EKG did show sinus tachycardia rate of 113 with intraventricular block and a right ventricular hypertrophy. He also had an acute kidney injury. The patient was admitted for heart failure exacerbation with a consult to cardiology, as well as trending his cardiac enzymes and continuing on IV Lasix. The patient underwent an echocardiogram that showed severe reduction in LV systolic function with an estimated EF of 10% to 15% with severe global hypokinesis. The V/Q scan did not show any PE. Patient was initiated on Entresto by cardiology, as well as continue to diuresis and follow strict I and O's. Patient did have an 8-beat run of ventricular tachycardia that he did not receive a shock for. Aldactone was added to his regimen. Patient was re-initiated back on his home Lasix. They were able to initiate him back on his beta-sohail. Hemodynamically, the patient has handled it well. Again, the patient has been hemodynamically stable. We will need to follow back up with cardiology within the month, as well as continue to follow up with his primary care physician, Dr. Rayo Pagan. VITAL SIGNS AT TIME OF DISCHARGE: Temperature is 98 degrees, heart rate 100, respirations 16, blood pressure 133/73, O2 is 92% on room air. DISCHARGE DIET: Diabetic. DISCHARGE MEDICATIONS: 1. NovoLog 70/30 35 units subcutaneous q.p.m. 2. Novolin mix 70/30, 30 units subcutaneously q.a.m. 3. Lasix 60 mg p.o. b.i.d. 4. Aldactone 12.5 mg p.o. daily. 5. Aspirin 81 mg p.o. daily. 6. Coreg 3.125 mg p.o. b.i.d. 7. Entresto 24 mg/26 mg tab, 1 each p.o. b.i.d. FOLLOWUP: The patient is being discharged home. He will need to follow up with his paramedical aide, Dr. Gianni Rosenberg, as well as his primary care physician, Dr. Rayo Pagan. It looks like the patient was also seen by palliative care, and they will continue to follow up as indicated. DISCHARGE TIME: Greater than 30 minutes. Dictated by MARIMAR Gibbs for Rene Blank MD MTDD
--- NOTE | 2016-09-24 13:17 | PALLIATIVE CARE CONSULTATION ---
DATE: 09/24/2016 REQUESTING PHYSICIAN: Dr. Blank. REASON FOR CONSULTATION: Goals of care. HISTORY OF PRESENT ILLNESS: This is a 51-year-old male with a past medical history of congestive heart failure, diabetes mellitus type 2, hypertension, and gastroesophageal reflux disease. He was most recently admitted on 09/20/2016 after presenting to the emergency department with complaints of shortness of breath, palpitations, and bilateral lower leg swelling. It is reported that he self-increased his Lasix from 40 mg to 60 mg; however, did not have any improvement in his lower extremity edema. Mr. Ace states that he is not compliant with his medications, diabetes mellitus management, or the use of his CPAP. Currently Mr. Ace is sitting on the bedside. He states his edema is much improved. He denies any pain or shortness of breath at this time. There is no family at the bedside. The palliative care team has been consulted to assist with goals of care. REVIEW OF SYSTEMS: Twelve point review of system has been conducted and otherwise negative except those mentioned in the HPI. PAST MEDICAL HISTORY: See HPI. PAST SURGICAL HISTORY: 1. Appendectomy. 2. Pacemaker placement. FAMILY HISTORY: Positive for heart disease, lung cancer, and diabetes. SOCIAL HISTORY: Prior to this admission Mr. Ace lived alone. 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 He is a smoker. Alcohol and drug use have been denied. PHYSICAL EXAMINATION: General: This is a 51-year-old male who does not appear to be in any acute distress. HEENT: Atraumatic, normocephalic. Neck: Trachea is midline. Cardiovascular: Increased rate. Regular rhythm. Pulmonary: Lung sounds are diminished. Crackles auscultated to bilateral bases. Abdomen: Soft. Bowel sounds are active. Extremities: He does have 1+ pitting edema to bilateral lower extremities. Neurologic: The patient is alert and oriented x3. IMPRESSION: This is a 51-year-old male with a past medical history as listed above in the HPI. I met with Mr. Ace to discuss his goals of care related to his congestive heart failure. He states that he understands the progressive nature of his illness. We talked about his medical noncompliance. He states that he does not have time to manage his chronic illnesses and therefore does not take his medicines as he should. We also discussed advanced directive and power of corporate associate attorney. He does not have either document but he is interested in obtaining those documents. I will provide Mr. Ace with a complaint advanced directive and power of corporate associate attorney so he can complete that. Mr. Ace states that he does not need any home services. It appears that his palliative performance scale is 60%. Mr. Ace is a full code. The palliative care team will continue to follow as needed. Thank you for this consultation. Dictated by MARIMAR Serrano for Constantin Oscar MD
== END 2016-09-23 16:21 | disposition home or self-care (01) | DRG 292 ==
LOC: ED 15:02 → 3N 21:27
PROVIDERS: ATTEND Internal Medicine
DX: I11.0 Hypertensive heart disease with heart failure (principal); N17.9 Acute kidney failure, unspecified; I47.2 Ventricular tachycardia; I42.0 Dilated cardiomyopathy; E11.621 Type 2 diabetes mellitus with foot ulcer; E11.65 Type 2 diabetes mellitus with hyperglycemia; I50.23 Acute on chronic systolic (congestive) heart failure; L97.519 Non-pressure chronic ulcer of other part of right foot with unspecified severity; L97.529 Non-pressure chronic ulcer of other part of left foot with unspecified severity; I25.10 Atherosclerotic heart disease of native coronary artery without angina pectoris; K21.9 Gastro-esophageal reflux disease without esophagitis; I87.8 Other specified disorders of veins; G47.30 Sleep apnea, unspecified; F17.210 Nicotine dependence, cigarettes, uncomplicated; Z91.14 Patient's other noncompliance with medication regimen; Z79.899 Other long term (current) drug therapy; Z79.4 Long term (current) use of insulin; Z79.84 Long term (current) use of oral hypoglycemic drugs; Z95.810 Presence of automatic (implantable) cardiac defibrillator; Z83.3 Family history of diabetes mellitus; Z80.1 Family history of malignant neoplasm of trachea, bronchus and lung; Z82.49 Family history of ischemic heart disease and other diseases of the circulatory system
CPT/HCPCS: 71020; 78582; 80048; 80053; 81001; 82550; 82553; 82948; 83036; 83735; 83880; 84484; 85025; 85379; 85610; 85730; 93005; 93306; 93970; 94761; 96374; A9539; A9540; C9113; J1644; J1815; J1940; S0164

== ENCOUNTER 2016-09-27 17:56 | Inpatient (IN) ==
[2016-09-27] MEDS ORDERED: ASPIRIN PO STA (18:16)
[2016-09-27 18:49] LABS: MANUAL DIFF NEEDED? NO
[2016-09-27 18:51] LABS: BASO% 0.4 % (0.0-0.8); EOS# 0.14 X1000 (0.0-0.7); EOS% 1.5 % (0.0-10.0); HEMATOCRIT 39.4 % (42.0-52.0); LYMPH# 1.07 X1000 (1.2-3.4); LYMPH% 11.4 % (20.5-51.1); MCH 29.2 PG (27-31); MCV 88.5 FL (81-99); MONO# 0.74 X1000 (0.11-0.59); MONO% 7.9 % (1.7-9.3); MPV 11.2 FL (7.4-10.4); NEUT% 78.8 % (42.2-75.2); PLT 225 X1000 (130-400); RBC 4.45 XMIL (4.7-6.1)
[2016-09-27 19:02] LABS: INR 1.07; PROTIME 11.4 Seconds (9.2-11.7); PTT 26.3 Seconds (22.0-36.0)
[2016-09-27 19:07] LABS: AGAP 12; ALBUMIN 3.4 g/dL (3.5-5.0); ALKALINE PHOSPHATASE 128 U/L (32-122); BUN 35 mg/dL (8-22); CALCIUM 8.6 mg/dL (8.8-10.2); CHLORIDE 96 mmol/L (98-107); COSMO 285; GOT 31 U/L (10-34); GPT 31 U/L (10-44); POTASSIUM 4.5 mmol/L (3.5-5.1); SODIUM 135 mmol/L (136-145); TCO2 27 mmol/L (25-35); TOTAL BILIRUBIN 0.73 mg/dL (0.20-1.00); TOTAL PROTEIN 6.3 g/dL (6.3-8.3)
[2016-09-27 19:09] LABS: CK PROFILE 234 U/L (24-204)
--- NOTE | 2016-09-27 19:11 | PROVIDER DOCUMENTATION ---
HPI-Cardiac General - General Chief Complaint: Shortness of Breath Stated Complaint: SOB, CP Time Seen by Provider: 09/27/16 18:07 Allergies/Adverse Reactions: Patient Allergies Allergy/AdvReac Type Severity Reaction Status Date / Time Sulfa (Sulfonamide AdvReac Intermediate NAUSEA/VOMI Verified 09/20/16 18:01 Antibiotics) TING Home Medications: Home Medication List Medication Instructions Recorded Confirmed Last Taken Type Furosemide [Lasix] 60 mg PO BID #60 tablet 12/30/13 09/27/16 09/27/16 15:00 Rx Insulin Aspart Prot/Insuln Asp 30 unit SQ QAM 09/20/16 09/27/16 09/27/16 09:00 History [Novolog Mix 70-30 Vial] Insulin NPH Hum/Reg Insulin Hm 35 unit SQ QPM 09/20/16 09/27/16 09/26/16 21:00 History [Novolin 70-30 100 Unit/ml Vial] Aspirin 81 mg PO DAILY #60 chewtab 09/23/16 09/27/16 09/27/16 09:00 Rx Carvedilol [Coreg] 3.125 mg PO BID #60 tablet 09/23/16 09/27/16 09/27/16 09:00 Rx Sacubitril/Valsartan [Entresto 24 1 each PO BID #60 tablet 09/23/16 09/27/16 Rx mg-26 mg Tablet] Spironolactone [Aldactone] 12.5 mg PO DAILY #60 tablet 09/23/16 09/27/16 09:00 Rx - History of Present Illness-Cardiac Nature of Presenting Problem: 51 yo with cardiomyopathy, severe CHF. discharged from [facility] 09/23. Returns today because of increasing shortness of breath, occasional mild chest pain, sensation of increased HR( has pacer.) Feels he is fluid overloaded. Took 4 lasix this am without improvement. Location: reports: substernal Quality of Pain: reports: pressure (mild intermittent.) Onset/Duration: 3 days ago (gradual since d/c from hospital) Timing: still present Prior Chest Pain/Cardiac Workup: reports: other (see 09/20 admit) Review of Systems - Adult - REVIEW OF SYSTEMS - ADULT Constitutional: reports: fatique, weight gain (gained 6 pounds since 09/23) Eyes: reports: no symptoms reported Ears, Nose, Mouth & Throat: reports: no symptoms reported Cardiovascular: reports: chest pain, irregular heart rate Respiratory: reports: dyspnea on exertion, shortness of breath Gastrointestinal: reports: no symptoms reported Genitourinary: reports: no symptoms reported Past History - Adult - PAST MEDICAL HISTORY-ADULT Review of Records: reports: Old Records Reviewed, Nursing Assessment Review, Medications Reviewed Major Childhood Illnesses: reports: denies history Cardiovascular: reports: CAD, CHF, HTN, hyperlipidemia Respiratory: reports: other (sleep apnea) Gastrointestinal: reports: denies history Obstetrical/Gynecological: reports: denies history Genitourinary: reports: denies history Musculoskeletal: reports: denies history Neurological: reports: denies history Psychiatric: reports: denies history Endocrine/Immune: reports: Diabetes Other Conditions: reports: denies history - PRIOR SURGERIES/PROCEDURES Surgical/Procedure History: reports: appendectomy, other (pacemaker) - PRIOR HOSPITALIZATIONS Prior Hospitalizations: reports: none - IMMUNIZATION STATUS Childhood Immunizations: See Nurse Assessment Flu Vaccine: See Nurse Assessment - FAMILY HISTORY Family History: reviewed, not pertinent Physical Exam-General - PHYSICAL EXAM-ADULT Initial Vital Signs Reviewed: Yes - CONSTITUTIONAL General Appearance: alert, no apparent distress - EYES Eyes: PERRL/EOMI - HEAD, EARS, NOSE, MOUTH & THROAT HENMT: normal ENT inspection - NECK Neck: non-tender, full range of motion, supple, normal inspection - RESPIRATORY Respiratory: chest non-tender, crackles (at bases) - CARDIOVASCULAR Cardiovascular: tachycardia, gallop/S3 - GASTROINTESTINAL (ABDOMEN) Abdominal Exam: normal bowel sounds, non tender, soft, no organomegaly - LYMPHATIC Lymphatic: no adenopathy - MUSCULOSKELETAL Back Exam: normal inspection, no CVA tenderness Extremity: non-tender, pedal edema (1+) - NEUROLOGIC Neurologic: grossly normal, no motor/sensory deficits Progress - PLAN OF CARE/RESULTS Progress/Plan/Lab Results: Laboratory Tests 09/27/16 09/27/16 09/27/16 18:35 18:35 18:35 WBC 9.35 RBC 4.45 L Hgb 13.0 L Hct 39.4 L MCV 88.5 MCH 29.2 MCHC 33.0 RDW Std Deviation 12.9 Plt Count 225 MPV 11.2 H Immature Gran % (Auto) 0.0 Neut % (Auto) 78.8 H Lymph % (Auto) 11.4 L Republic % (Auto) 7.9 Eos % (Auto) 1.5 Baso % (Auto) 0.4 Immature Gran # (Auto) 0.00 Neut # (Auto) 7.36 H Lymph # (Auto) 1.07 L Republic # (Auto) 0.74 H Eos # (Auto) 0.14 Baso # (Auto) 0.04 PT INR PTT (Actin FS) Sodium 135 L Potassium 4.5 Chloride 96 L Carbon Dioxide 27 Anion Gap 12 BUN 35 H Creatinine 1.5 H BUN/Creatinine Ratio 23 Glucose 225 H Calculated Osmolality 285 Calcium 8.6 L Magnesium 2.0 Total Bilirubin 0.73 AST 31 ALT 31 Alkaline Phosphatase 128 H Creatine Kinase 234 H Creatine Kinase Index 3.8 H CK-MB (CK-2) 8.91 H Troponin T Vxz-I-Dtuptlxjcju Pept 1940 H Total Protein 6.3 Albumin 3.4 L Globulin 2.9 Albumin/Globulin Ratio 1.2 09/27/16 09/27/16 18:35 18:35 WBC RBC Hgb Hct MCV MCH MCHC RDW Std Deviation Plt Count MPV Immature Gran % (Auto) Neut % (Auto) Lymph % (Auto) Republic % (Auto) Eos % (Auto) Baso % (Auto) Immature Gran # (Auto) Neut # (Auto) Lymph # (Auto) Republic # (Auto) Eos # (Auto) Baso # (Auto) PT 11.4 INR 1.07 PTT (Actin FS) 26.3 Sodium Potassium Chloride Carbon Dioxide Anion Gap BUN Creatinine BUN/Creatinine Ratio Glucose Calculated Osmolality Calcium Magnesium Total Bilirubin AST ALT Alkaline Phosphatase Creatine Kinase Creatine Kinase Index CK-MB (CK-2) Troponin T 0.022 Fib-[id number]-Upendfrxwtx Pept Total Protein Albumin Globulin Albumin/Globulin Ratio Orders Category Date Time Status Cardiac Monitoring DIRECTED Care 09/27/16 18:16 Active Saline Loc NOW Care 09/27/16 18:16 Active CHEST-PORTABLE [RAD] Stat Exams 09/27/16 18:18 Taken CBC WITH ELECTRONIC DIFF [HEME] Stat Lab 09/27/16 18:35 Completed CK PROFILE [SP CHEM] Stat Lab 09/27/16 18:35 Completed COMPREHENSIVE METABOLIC PANEL [CHEM] Stat Lab 09/27/16 18:35 Completed MAGNESIUM [CHEM] Stat Lab 09/27/16 18:35 Completed PRO B-NATRIURETIC PEPTIDE Stat Lab 09/27/16 18:35 Completed PROTIME WITH INR [COAG] Stat Lab 09/27/16 18:35 Completed PTT [COAG] Stat Lab 09/27/16 18:35 Completed TROPONIN T Stat Lab 09/27/16 18:35 Completed Aspirin Med 09/27/16 18:16 Discontinued 325 mg PO STAT STA Furosemide [Lasix] Med 09/27/16 19:40 Discontinued 40 mg IV NOW ONE Furosemide [Lasix] Med 09/27/16 19:16 Discontinued 60 mg IV NOW ONE EKG [EKG] Stat Ther 09/27/16 18:02 Ordered EKG [EKG] Stat Ther 09/27/16 18:16 Ordered Vital Signs Temp Pulse Resp BP Pulse Ox 09/27/16 17:59 97.7 F 116 H 22 134/80 100 Sulfa (Sulfonamide Antibiotics) Adverse Reaction (Intermediate, Verified 18:01) NAUSEA/VOMITING Furosemide [Lasix] 60 mg PO BID #60 tablet 12/30/13 Insulin Aspart Prot/Insuln Asp [Novolog Mix 70-30 Vial] 30 unit SQ QAM 09/20/16 Insulin NPH Hum/Reg Insulin Hm [Novolin 70-30 100 Unit/ml Vial] 35 unit SQ QPM 09/20/16 Aspirin 81 mg PO DAILY #60 chewtab 09/23/16 Carvedilol [Coreg] 3.125 mg PO BID #60 tablet 09/23/16 Sacubitril/Valsartan [Entresto 24 mg-26 mg Tablet] 1 each PO BID #60 tablet Spironolactone [Aldactone] 12.5 mg PO DAILY #60 tablet 09/23/16 Laboratory 09/27/16 09/27/16 09/27/16 18:35 18:35 18:35 WBC RBC Hgb Hct MCV MCH MCHC RDW Std Deviation Plt Count MPV Immature Gran % (Auto) Neut % (Auto) Lymph % (Auto) Republic % (Auto) Eos % (Auto) Baso % (Auto) Immature Gran # (Auto) Neut # (Auto) Lymph # (Auto) Republic # (Auto) Eos # (Auto) Baso # (Auto) PT 11.4 INR 1.07 PTT (Actin FS) 26.3 Sodium Potassium Chloride Carbon Dioxide Anion Gap BUN Creatinine BUN/Creatinine Ratio Glucose Calculated Osmolality Calcium Magnesium Total Bilirubin AST ALT Alkaline Phosphatase Creatine Kinase Creatine Kinase Index CK-MB (CK-2) Troponin T 0.022 Obu-Z-Vilzjilyfby Pept 1940 H Total Protein Albumin Globulin Albumin/Globulin Ratio 09/27/16 09/27/16 18:35 18:35 WBC 9.35 RBC 4.45 L Hgb 13.0 L Hct 39.4 L MCV 88.5 MCH 29.2 MCHC 33.0 RDW Std Deviation 12.9 Plt Count 225 MPV 11.2 H Immature Gran % (Auto) 0.0 Neut % (Auto) 78.8 H Lymph % (Auto) 11.4 L Republic % (Auto) 7.9 Eos % (Auto) 1.5 Baso % (Auto) 0.4 Immature Gran # (Auto) 0.00 Neut # (Auto) 7.36 H Lymph # (Auto) 1.07 L Republic # (Auto) 0.74 H Eos # (Auto) 0.14 Baso # (Auto) 0.04 PT INR PTT (Actin FS) Sodium 135 L Potassium 4.5 Chloride 96 L Carbon Dioxide 27 Anion Gap 12 BUN 35 H Creatinine 1.5 H BUN/Creatinine Ratio 23 Glucose 225 H Calculated Osmolality 285 Calcium 8.6 L Magnesium 2.0 Total Bilirubin 0.73 AST 31 ALT 31 Alkaline Phosphatase 128 H Creatine Kinase 234 H Creatine Kinase Index 3.8 H CK-MB (CK-2) 8.91 H Troponin T Enb-E-Mvhcntbhueb Pept Total Protein 6.3 Albumin 3.4 L Globulin 2.9 Albumin/Globulin Ratio 1.2 - REASSESSMENT Reassessment #1 Time Reassessed: 19:30 (CXR not much worse but elevated CK MB) Reassessment Comment: plan admit - EKG 1 Time of EKG reading by physician:: 18:30 EKG Read and Signed by:: Lucila Lemus Rate: 113 Comments: paced rhythm - XRAY 1 XRAY Study: Chest (cardiomegally. increased interstitial markings but not worsened from 09/22 cxr) - CONSULTS/PCP/HOSPITALIST Notification #1 *Consult/PCP/Hospitalist*: Dr Killian Time Discussed: 20:30 Consult Disposition: Will see in ED - CHANGE OF SHIFT REPORT (ED Provider) Tentative Impression of Patient: CHF, chest pain with elevated cardiac enzymes Departure - Departure Time of Disposition Order: 19:45 DIAGNOSIS: Heart failure, CHF (congestive heart failure) Disposition: ADMITTED INPATIENT 09 Certified Medical Emergency: Emergent Condition: Critical Referrals: Rayo Pagan MD [Primary Care Provider] -
[2016-09-27] MEDS ORDERED: LASIX IV ONE ×2 (19:16→19:40)
[2016-09-27 19:35] LABS: CK INDEX 3.8 (0.0-2.5); CK-MB 8.91 ng/mL (0.0-5.0)
[2016-09-27] MEDS: NOVOLOG MIX 70/30 SUBQ SCH (21:00)
[2016-09-27] MEDS ORDERED: LASIX PO SCH (21:00)
[2016-09-27] MEDS ORDERED: TYLENOL PO PRN (21:35)
[2016-09-27] MEDS: COREG PO SCH (21:35)
[2016-09-27] MEDS ORDERED: ZOFRAN IV PRN (21:35)
[2016-09-27] MEDS: ENTRESTO 24 MG-26 MG TABLET PO SCH (21:35)
[2016-09-27] MEDS: LOVENOX SUBQ SCH (21:55)
--- NOTE | 2016-09-27 22:57 | Diag Imaging Result Document ---
PROCEDURE NAME: CHEST-PORTABLE - 09/27/2016 SINGLE FRONTAL RADIOGRAPH OF THE CHEST: COMPARISON: 09/22/2016. FINDINGS: The heart appears somewhat prominent but stable. Central vasculature appears to be mildly prominent but similar to previous studies suggesting mild chronic pulmonary venous congestion. The lungs are clear otherwise. There is no definite pleural fluid collection. Left- sided pacemaker is in stable position. IMPRESSION: Stable cardiomegaly and likely mild pulmonary venous congestion.
[2016-09-27] MEDS: LASIX 100 MG in NS 90 ML IV SCH (23:10)
--- NOTE | 2016-09-27 23:17 | HISTORY AND PHYSICAL ---
PRIMARY CARE PROVIDER: Rayo Pagan. AD TAKER: Dr. Mcallister. CHIEF COMPLAINT: Shortness of breath. HISTORY OF PRESENT ILLNESS: Mr. Ace is a 51-year-old male who was discharged on the of this month. He has known congestive heart failure with an ejection fraction of between 10 and 15%. Also has diabetes mellitus type 2, hypertension and has been noted to be medically noncompliant in the past. He presents today stating that he has been taking his medication as prescribed. He reports increasing shortness of breath. He states that he has gained 6 pounds in the last 3 days. Feels as if he is having palpitations or increased heart rate. He said that he has had intermittent chest pain but it has been mild. He complains of increased bilateral lower leg swelling that is up into his midthighs. He states that today he was not putting out urine as he would every other day so he took additional doses of his Lasix with no improvement so decided to come into the emergency room. Laboratory data and chest x-ray appear to be at patient's baseline. Chest x-ray may show mildly increased pulmonary vascular congestion. The patient will be admitted in observation status for further evaluation and treatment. REVIEW OF SYSTEMS: Fourteen-point review of systems conducted with the patient. Pertinent positives listed above in the HPI. PAST MEDICAL HISTORY: 1. Congestive heart failure with severe dilation and severely decompressed left ventricular function. Last ejection fraction 10-15%. 2. Diabetes mellitus type 2. 3. Hypertension. 4. GERD. PREVIOUS SURGICAL HISTORY: 1. Appendectomy. 2. Kidney stones. 3. Pacemaker placement. FAMILY HISTORY: Patient reports that he does have a significant family history. Father had coronary artery disease with several heart attacks and then secondary to a massive [place]. Father also had lung cancer. There was also diabetes mellitus in first-degree relatives. SOCIAL HISTORY: Patient is a smoker, he has around a 60 pack year smoking history smoking up to 3 packs per day for roughly 20 years. He has recently reduced down to 3 or less cigarettes a day and is trying to quit. Denies alcohol or illicit drug use or abuse. 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 ALLERGIES: Allergic to sulfa. MEDICATIONS: 1. Lasix 60 mg p.o. b.i.d. 2. Novolin 70/30, 35 units subcutaneously q.p.m. 3. Novolin 70/30, 30 units subcutaneously q.a.m. 4. Entresto 24 mg/26 mg 1 p.o. b.i.d. 5. Aldactone 12.5 mg p.o. daily. 6. Aspirin 81 mg p.o. daily. 7. Coreg 3.125 mg p.o. b.i.d. PHYSICAL EXAMINATION: VITAL SIGNS: Temperature 97.7, pulse 108, respirations 20, blood pressure 131/84, oxygen saturation 98% on room air. GENERAL: Pleasant 51-year-old male resting comfortably in the ER stretcher. No acute distress. Alert, awake, answers all questions appropriately. HEENT: Head is atraumatic, normocephalic. Pupils equal, round, reactive to light. Extraocular eye movement intact. Sclerae is anicteric. Conjunctivae is pink. Oral mucosa is moist. NECK: Supple. Trachea is midline. No JVD. No carotid bruit on auscultation. CARDIAC: Regular rhythm. Mildly tachycardic. S1, S2 appreciated. No murmurs, gallops, rubs. LUNGS: Mildly decreased breath sounds bilaterally from poor inspiratory effort. Lungs are clear to auscultation bilaterally. No rhonchi, wheezes or rales. ABDOMEN: Soft, nondistended, nontender. Bowel sounds present in all 4 quadrants. Normoactive. No pulsatile mass. No organomegaly. EXTREMITIES: The patient does have 3+ pitting edema bilateral lower extremities which extends up into the midthigh in the thighs that is more 1+ pitting edema. Pedal pulses 2+ bilaterally. SKIN: Warm, dry and intact. No acute lesions or rash. The patient has healing foot ulcers on the plantar surface of his left foot in his 3rd toe on his right foot. No warmth, erythema or drainage. NEUROLOGICAL: Alert and oriented x3. Cranial nerves 2-12 appear to be grossly intact. GENITOURINARY: Patient voids, otherwise deferred. DIAGNOSTIC DATA: Chest x-ray, mildly increased pulmonary vascular markings. Left-sided pacemaker noted. Mild cardiomegaly. LABORATORY DATA: WBC 9.35, hemoglobin 13, hematocrit 39.4, platelet count 225,000. Coagulations within normal limits. Sodium 135, potassium 4.5, chloride 96, carbon dioxide 27, BUN 35, creatinine 1.5, glucose 225. CK 234, CK index 3.8, CK-MB 8.91, troponin 0.022. ProBNP 1940. ASSESSMENT AND PLAN: 1. Congestive heart failure with mild exacerbation. Place patient on the medical floor. He is taking 60 mg of Lasix b.i.d. and was given Lasix in the emergency room. Will start Lasix drip at 5 mg/hour. Continue his home medications including his Coreg and his Entresto as well as his Aldactone. Recheck laboratory data in a.m. 2. Diabetes mellitus type 2 now insulin dependent. The patient was noted as having a hemoglobin A1c of 11.2, he still appears to be hyperglycemic. Will continue home medications as well as covering with low-dose sliding scale insulin q.a.c. and at bedtime. 3. Chronic kidney disease stage 3. The patient's kidney function seems to have decreased in the last year. It was originally thought that he has acute renal failure. However his baseline creatinine now appears to be roughly 1.5. 4. Hypertension as noted above. Continue medications. 5. Gastroesophageal reflux disease. Protonix 40 IV q.24 hours. 6. Diabetic foot ulcers. Consult wound care. 7. Chronically elevated cardiac enzymes. Will continue to trend and consult Cardiology if needed. Further recommendations per patient clinical course. Dictated by MARIMAR Pineda for Lance Killian MD
[2016-09-28] MEDS ORDERED: HUMALOG ONE (02:53)
[2016-09-28] MEDS: HUMALOG SUBQ SCH ×5 (02:54→21:15)
[2016-09-28 03:56] LABS: MANUAL DIFF NEEDED? NO
[2016-09-28 03:59] LABS: BASO% 0.3 % (0.0-0.8); EOS# 0.13 X1000 (0.0-0.7); EOS% 1.8 % (0.0-10.0); HEMATOCRIT 38.5 % (42.0-52.0); HEMOGLOBIN 12.8 g/dL (14.0-18.0); LYMPH# 1.06 X1000 (1.2-3.4); LYMPH% 14.5 % (20.5-51.1); MCH 29.3 PG (27-31); MCHC 33.2 g/dL (33-37); MCV 88.1 FL (81-99); MONO# 0.41 X1000 (0.11-0.59); MONO% 5.6 % (1.7-9.3); MPV 10.9 FL (7.4-10.4); NEUT% 77.8 % (42.2-75.2); PLT 210 X1000 (130-400); RBC 4.37 XMIL (4.7-6.1)
[2016-09-28 04:27] LABS: CALCIUM 8.4 mg/dL (8.8-10.2); POTASSIUM 3.5 mmol/L (3.5-5.1)
[2016-09-28] MEDS: NOVOLOG MIX 70/30 SUBQ SCH ×2 (09:00→21:15)
[2016-09-28] MEDS: ENTRESTO 24 MG-26 MG TABLET PO SCH ×2 (09:00→20:09)
[2016-09-28] MEDS: ALDACTONE PO SCH (09:00)
[2016-09-28] MEDS: ASPIRIN PO SCH (09:00)
[2016-09-28] MEDS: COREG PO SCH ×2 (09:00→20:09)
--- NOTE | 2016-09-28 18:04 | PROGRESS NOTE ---
DATE: 09/28/2016 SUBJECTIVE: Patient reports breathing better although he noticed himself still swollen, mostly in both lower extremities up to both thighs. OBJECTIVE: Vital Signs: Temperature 97.9 degrees, heart rate 102, respiratory 20, blood pressure 103/60, O2 saturation 95% on room air. General Examination: This is a 51-year-old, male, lying in bed, in no acute distress. HEENT: Head is normocephalic, atraumatic. Anicteric sclerae and pale conjunctivae. Mucous membranes moist. Neck: Supple. No JVD noted. No carotid bruits. No lymphadenopathy. No thyromegaly. Cardiovascular: S1, S2 heard. No murmurs, gallops, or rubs. Regular rate and rhythm. Respiratory: There are some few crackles in both bases. Patient is not using any accessory muscles or having work of breathing. Abdomen: Soft, nontender to palpation. Bowel sounds present. No organomegaly. Extremities: No clubbing or cyanosis. Edema on both lower extremities up to both thighs. Peripheral pulses present in both legs. Neurological: Patient alert, oriented x3. Able to move 4 extremities. Cranial nerves 2- 12 grossly normal. LABORATORY DATA: White cell count 7.30, hemoglobin 12.8, hematocrit 38.5, platelets 213,000. BMP shows creatinine 1.4, BUN 33. Troponins are normal. ASSESSMENT AND PLAN: 1. Acute on chronic congestive heart failure. The patient has known severe dilated cardiomyopathy with the ejection fraction of 10%-15% that was checked in a recent echocardiogram done 10 days ago. The patient was admitted to the hospital because of shortness of breath due to acute congestive heart failure again. At this point, patient has been placed on Lasix drip. As per patient, who knows how this medication works, he reported this medication is not working completely well. In any case, we prefer to have Cardiology input regarding management of diuretics on this patient. Probably an option for him will be either torsemide or metolazone. We will follow recommendations from Cardiology. 2. Diabetes mellitus type 2. Hemoglobin A1c is 11.2. The patient is not having of course a good control of diabetes. At this point, we will continue with sliding scale insulin. 3. Chronic kidney disease stage 4. Patient's kidney function is 1.4. At this point, it looks like to be on the baseline. We will continue with the same management. 4. Hypertension. We will continue with the same medications. 5. Gastroesophageal reflux disease. We will continue with Protonix. 6. Diabetic foot ulcers. Wound care team has been consulted. 7. Chronically elevated cardiac enzymes. At this time, the cardiac enzymes have been stable.
--- NOTE | 2016-09-28 18:29 | Diag Imaging Result Document ---
PROCEDURE NAME: CT THORAX W/O CONTRAST - 09/28/2016 CT THORAX WITHOUT CONTRAST: COMPARISON: None available. FINDINGS: There are bibasilar effusions. The left effusion is small. The right effusion is small to moderate in size. There is associated bibasilar atelectasis. There is mild patchy ground-glass infiltrates at both upper lobes near the apices suggesting pneumonia. There is a calcified granuloma in the lingula. There is probably also very mild interstitial edema. There are calcified mediastinal and left hilar lymph nodes indicating prior granulomatous disease. There are other shotty somewhat prominent mediastinal and hilar lymph nodes that are nonspecific but could be reactive given the infiltrates. There is cardiomegaly. Limited views of the upper abdomen reveal height density in the gallbladder lumen. This probably represents vicarious excretion of contrast from a previous enhanced study. IMPRESSION: 1. Mild patchy ground-glass infiltrates in both upper lobes near the apices. These are likely infectious. 2. Small to moderate size basilar effusions, largest on the right with associated bibasilar atelectasis. 3. Likely mild interstitial edema. 4. Nonspecific mediastinal and hilar lymphadenopathy, which could be reactive. 5. Other incidental/nonacute findings detailed above.
[2016-09-28] MEDS: TESSALON PO PRN (18:52)
[2016-09-28] MEDS: LASIX 100 MG in NS 90 ML IV SCH (20:08)
[2016-09-28] MEDS: LOVENOX SUBQ SCH ×2 (20:09→23:33)
--- NOTE | 2016-09-29 06:32 | EKG Report ---
Test Performed on : 09/27/2016 6:02:14 PM Test Reason : Chest Pain Blood Pressure : / mmHG Vent. Rate : 113 BPM Atrial Rate : 113 BPM P-R Int : 116 ms QRS Dur : 152 ms QT Int : 392 ms P-R-T Axes : 048 262 067 degrees QTc Int : 537 ms Sinus tachycardia. Possible Left atrial enlargement Nonspecific intraventricular block Right ventricular hypertrophy Lateral infarct (cited on or before 20-SEP-2016) Inferior infarct (cited on or before 20-SEP-2016) Abnormal ECG When compared with ECG of 20-SEP-2016 15:16, No significant change was found Unconfirmed Result
[2016-09-29] MEDS: HUMALOG SUBQ SCH ×4 (06:49→21:24)
[2016-09-29] MEDS: ASPIRIN PO SCH (08:41)
[2016-09-29] MEDS: NOVOLOG MIX 70/30 SUBQ SCH ×2 (08:41→16:44)
[2016-09-29] MEDS: COREG PO SCH ×2 (08:42→21:25)
[2016-09-29] MEDS: ALDACTONE PO SCH (08:42)
[2016-09-29] MEDS: TESSALON PO PRN ×2 (08:52→18:24)
[2016-09-29] MEDS: ENTRESTO 24 MG-26 MG TABLET PO SCH ×2 (10:41→21:25)
--- NOTE | 2016-09-29 15:58 | CONSULTATION ---
DATE OF CONSULTATION: 09/29/2016 HISTORY OF PRESENT ILLNESS: Mr. Ace is a 51-year-old gentleman who was discharged on 13 of this month. He has known congestive heart failure with severe LV dysfunction, ejection fraction of 10-15%, has diabetes, hypertension, had been noncompliant in the past. Comes with complaints of increasing weight gain, pedal edema with shortness of breath. He has also had cough with expectoration. The patient had chest x-ray done and a chest CT done which revealed mild patchy ground-glass infiltrates in both upper lobe apices likely to represent infectious process, in addition interstitial edema suggestive of heart failure. Patient has been started on IV Lasix drip in addition to antibiotics. Patient since discharge he says he has been taking his medications regularly. Does not complain of chest pain suggestive of angina. There is no orthopnea at the present time. REVIEW OF SYSTEMS: A 14-point review of system was done.GI: There is no history of nausea, vomiting, diarrhea. There is no history of hematemesis or melena. Central nervous system: No focal weakness to suggest CVA, TIA. : There is no dysuria or hematuria. Respiratory: As above. Endocrine: Stable. PAST MEDICAL HISTORY: 1. Nonischemic cardiomyopathy, ejection fraction of 10-15%. 2. Systolic heart failure. 3. No significant coronary artery disease, minimal by cardiac catheterization 2013. 4. Diabetes. 5. Hypertension. 6. Gastroesophageal reflux disease. 7. Appendectomy. 8. Pacemaker implantation. CURRENT MEDICATIONS: Include spironolactone 12.5 mg a day, aspirin 81 mg a day, Coreg 3.125 b.i.d., Entresto 1 tablets twice daily, insulin NovoLog, enoxaparin, insulin Humalog, he has been started on piperacillin antibiotics, Lasix drip. ALLERGIES: He is allergic to sulfonamides. PHYSICAL EXAMINATION: Vital Signs: Blood pressure was 115/78. Cardiovascular System: Normal jugular venous pressure. There no thyromegaly. There was S3 gallop. There was soft murmur. Respiratory System: Fine inspiratory scattered crepitations. Abdomen: Soft, obese, nontender. There was no guarding or rigidity. Bowel sounds were heard. Central nervous system: Alert, was moving all 4 extremities. Extremities: Examination of extremities revealed pitting edema. HEENT: Atraumatic, normocephalic. Pupils were equal and reacting to light. DATA: Sodium 136, potassium 3.5, BUN 33, creatinine 1.8. Cardiac enzymes negative. Hematology. RBC 4.37, hemoglobin 12.8, hematocrit 38, platelet count of 210,00. ASSESSMENT AND PLAN: Mr. Rolo Ace is a 51-year-old gentleman who has systolic heart failure, severe nonischemic cardiomyopathy. Comes with complaints of increasing pedal edema, shortness of breath and cough. CT scan of his chest has suggestive of heart failure in addition to has ground-glass appearance in the both apices was suggestive of pneumonia as well. He has been started on antibiotics. RECOMMENDATIONS: Will continue his current medications. He has severe LV dysfunction, heart failure and he is on the right combination of medications. In addition to the above we will increase the dose of spironolactone to 25 mg a day and start him on digoxin 0.125 mg a day. Thank you for the consult.
[2016-09-29] MEDS: ZOSYN 3.375 GM/NS 50 ML IV SCH ×2 (16:41→21:24)
[2016-09-29] MEDS: LASIX 100 MG in NS 90 ML IV SCH (16:46)
--- NOTE | 2016-09-29 16:53 | PROGRESS NOTE ---
DATE: 09/29/2016 SUBJECTIVE: Patient reports still having mild swelling on both lower extremities all the way up both sides and also in both upper extremities. He basically did not notice any change in swelling. OBJECTIVE: Vitals: Temperature 97.8 degrees, heart rate 91, respiratory rate 20, blood pressure 115/70, O2 saturation 91% on room air. General: This is a 51-year-old, male, lying in bed, in no acute distress. HEENT: Head is normocephalic, atraumatic. Anicteric sclerae and pale conjunctivae. Mucous membranes moist. Neck: Supple. No JVD noted. No carotid bruits. No lymphadenopathy. No thyromegaly. Cardiovascular: S1, S2 heard. No murmurs, gallops, or rubs. Regular rate and rhythm. Respiratory: A few crackles still present in both bases. Patient is not using any accessory muscles or having work of breathing. Abdomen: Soft, nontender to palpation. Bowel sounds present. No organomegaly. Extremities: The patient has anasarca. Edema in both upper and lower extremities. Peripheral pulses present in both legs. Neurological: Patient alert and oriented x3. Able to move 4 extremities. Cranial nerves 2- 12 are grossly normal. LABORATORY DATA: There is no labs from today. ASSESSMENT AND PLAN: 1. Acute on chronic congestive heart failure. The patient has known severe dilated cardiomyopathy with ejection fraction 10-15%. We checked it a couple of weeks ago and currently patient is on a Lasix drip. He is receiving 5 mg of Lasix per hour. Because he is not responding to this medication, we are going to increase the doses to 10 mg daily and we will see how he does. Renal function shows mild creatinine elevation. We will continue basically with the same management. Yesterday 2.8 and today 2.1 L of urine. 2. Community-acquired pneumonia. Patient was complaining of cough with yellowish and greenish sputum. So because of suspicion of pneumonia, we have checked a CT of the chest that basically showed mild patchy ground-glass infiltrates in both upper lobes near the apices. Patient will be started on Zosyn. We will see how he does. 3. Diabetes mellitus type 2. Hemoglobin A1c is 11.2 which is not well controlled diabetes. 4. Chronic kidney disease stage 4. Actually the creatinine is 1.4 which is a good, and I would say at this point, this will be stage #2 chronic kidney disease. We will continue with the same management. 5. Hypertension. We will continue with the same medications. 6. Gastroesophageal reflux disease. We will continue with Protonix. 7. Diabetic foot ulcers. Wound Care Team has been consulted. 8. Chronically elevated cardiac enzymes. Those have been stable so far during this hospitalization. ANASTASIA
[2016-09-29] MEDS: LANOXIN PO SCH (18:23)
[2016-09-29] MEDS: LOVENOX SUBQ SCH (21:25)
[2016-09-30] MEDS: LOVENOX SUBQ SCH ×2 (02:04→21:39)
[2016-09-30] MEDS: ZOSYN 3.375 GM/NS 50 ML IV SCH ×4 (02:21→21:38)
[2016-09-30] MEDS: LASIX 100 MG in NS 90 ML IV SCH ×3 (02:21→22:36)
[2016-09-30] MEDS: HUMALOG SUBQ SCH ×5 (05:51→22:07)
[2016-09-30 06:14] LABS: CALCIUM 8.8 mg/dL (8.8-10.2); POTASSIUM 4.7 mmol/L (3.5-5.1)
[2016-09-30] MEDS: LANOXIN PO SCH (08:48)
[2016-09-30] MEDS: NOVOLOG MIX 70/30 SUBQ SCH ×2 (08:51→16:23)
[2016-09-30] MEDS: ALDACTONE PO SCH (08:51)
[2016-09-30] MEDS: COREG PO SCH ×2 (08:51→21:38)
[2016-09-30] MEDS: ASPIRIN PO SCH (08:51)
[2016-09-30] MEDS: TESSALON PO PRN ×2 (09:11→21:38)
[2016-09-30] MEDS: ENTRESTO 24 MG-26 MG TABLET PO SCH ×2 (09:53→21:38)
--- NOTE | 2016-09-30 18:59 | PROGRESS NOTE ---
DATE: 09/30/2016 SUBJECTIVE: Patient reports that the swelling is getting better slowly, definitely much better when compared with yesterday. He also reports less cough with greenish sputum. No fever or chills noted. OBJECTIVE: Vital Signs: Temperature 98.3 degrees, heart rate 106, respiratory rate 18, blood pressure 121/91, O2 sat is 99% on room air. General Examination: This is a 51-year-old, chronically ill-looking male, lying in bed, in no acute distress. HEENT: Head is normocephalic, atraumatic. Anicteric sclerae. Pale conjunctivae. Mucous membranes moist. Neck: Supple. No JVD noted. No carotid bruits. No lymphadenopathy. No thyromegaly. Cardiovascular: S1, S2 heard. No murmurs, gallops, or rubs. Regular rate and rhythm. Respiratory Examination: A few crackles still present in both bases but definitely much better in comparing with a couple of days ago. Patient is not using any accessory muscles or having work of breathing. Abdomen: Soft, nontender to palpation. Bowel sounds present. No organomegaly. Extremities: The patient's anasarca is resolving slowly. Definitely today is a little bit better but definitely good improvement in comparing to when he was admitted. Peripheral pulses present in both legs. Neurological examination: Patient is alert and oriented x3. Able to move 4 extremities. Cranial nerves 2-12 grossly normal. LABORATORY DATA: BMP shows creatinine 1.5 and BUN 28, with glucose 226. ASSESSMENT/PLAN: 1. Acute on chronic congestive heart failure. Patient has now severe dilated cardiomyopathy with ejection fraction of 10-15%. He was started here on Lasix drip 5 mg/hour during the 1st day and he made 2.8 and 2.1 L of urine moving but because the patient reports that he was feeling still swollen, we increased it to 10 mg/hour. Now he has made 6.7 L of urine so far, so we are going to continue with the same treatment for today. The patient requests to be sent home tomorrow. He suggested if we can increase the dose of Lasix home dose. He was taking 40 mg of Lasix b.i.d. Considering that this patient was receiving Lasix IV 240 mg I think easily we can go up to 80 mg p.o. b.i.d. At this time we are going to continue with the drip and we will see how he does tomorrow. 2. Community-acquired pneumonia. Because this patient was complaining of yellowish and greenish sputum, and a strong cough, a CT of the chest was ordered which basically shows there is pneumonia. Patient is on Zosyn and he can be discharged with Augmentin for 10 days total. 3. Diabetes mellitus type 2. That is diabetes so by now he is on sliding scale insulin but will definitely need his primary care physician to readjust the dose of his insulin. 4. Hypertension. Blood pressure is under control. He is not on any other medication for blood pressure except the Lasix drip. 5. Diabetic foot ulcer. Wound Care team is working with him. 6. Chronically elevated cardiac enzymes. The patient had been evaluated by Cardiology and they are not planning to do any workup. 7. Overall this patient is doing good and he requested to be sent home tomorrow. Probably if he is feeling much better we can send him with Lasix 80 mg p.o. b.i.d.
[2016-10-01] MEDS: ZOSYN 3.375 GM/NS 50 ML IV SCH ×4 (01:58→22:14)
[2016-10-01] MEDS: HUMALOG SUBQ SCH ×4 (06:15→22:15)
[2016-10-01] MEDS ORDERED: INSULIN PEN NEEDLES ONE (07:17)
[2016-10-01] MEDS: NOVOLOG MIX 70/30 SUBQ SCH ×2 (07:52→17:20)
[2016-10-01] MEDS: LASIX 100 MG in NS 90 ML IV SCH ×2 (07:52→17:20)
[2016-10-01] MEDS: ENTRESTO 24 MG-26 MG TABLET PO SCH ×2 (08:01→22:14)
[2016-10-01] MEDS: ALDACTONE PO SCH (08:01)
[2016-10-01] MEDS: TESSALON PO PRN ×2 (08:01→17:59)
[2016-10-01] MEDS: COREG PO SCH ×2 (08:01→22:14)
[2016-10-01] MEDS: LANOXIN PO SCH (08:02)
[2016-10-01] MEDS: ASPIRIN PO SCH (08:02)
[2016-10-01 10:11] LABS: MANUAL DIFF NEEDED? NO
[2016-10-01 10:16] LABS: BASO% 0.4 % (0.0-0.8); EOS# 0.32 X1000 (0.0-0.7); EOS% 3.5 % (0.0-10.0); HEMATOCRIT 43.1 % (42.0-52.0); HEMOGLOBIN 14.1 g/dL (14.0-18.0); IMM GRAN# 0.02 X1000 (0.0-0.04); IMM GRAN% 0.2 % (0.0-0.5); LYMPH# 0.99 X1000 (1.2-3.4); LYMPH% 10.8 % (20.5-51.1); MCH 28.8 PG (27-31); MCHC 32.7 g/dL (33-37); MCV 88.1 FL (81-99); MONO% 7.6 % (1.7-9.3); MPV 10.9 FL (7.4-10.4); NEUT% 77.5 % (42.2-75.2); PLT 304 X1000 (130-400); RBC 4.89 XMIL (4.7-6.1)
[2016-10-01 10:43] LABS: CALCIUM 8.7 mg/dL (8.8-10.2); POTASSIUM 3.9 mmol/L (3.5-5.1)
--- NOTE | 2016-10-01 16:32 | PROGRESS NOTE ---
DATE: 10/01/2016 SUBJECTIVE: This patient states that he is feeling better. He is not complaining of chest pain. No shortness of breath. Today, the upper extremity swelling is gone. At the level of the lower extremity, he has 2 to 3+ edema. But, he feels much better. OBJECTIVE: Vital Signs: Temperature 98.1 degrees, pulse 64, respiratory rate 16, blood pressure 117/72, oxygen saturation 99% on room air. HEENT: Normocephalic. No trauma. PERRLA. Neck: Supple. No JVD. No masses. Central trachea. Chest: Mild rales at the bases. Clear to auscultation. No wheezing. Abdomen is soft, nontender, nondistended. No hepatosplenomegaly. Cardiovascular: RRR. No murmurs. Extremities: Lower extremity edema 2 to 3+. No clubbing. No cyanosis. Neurologic: The patient is alert and oriented x3. No focal neurological deficits. LABORATORY: WBC 9.1, hemoglobin 14.1, hematocrit 43.1, platelets 304,000. Sodium 139, potassium 3.9, chloride 97, bicarbonate 30. BUN 27, creatinine 1.4. Glucose 195, calcium 8.7. ASSESSMENT AND PLAN: 1. [id number] congestive heart failure. The patient has severe dilated cardiomyopathy with an ejection fraction of 10%-15%. He is still on Lasix drip, and Cardiology evaluated this patient, and they are going to keep this patient on the same treatment. Probably tomorrow, in the morning, they will switch this patient to p.o. medication. Also, they increased the beta sohail today. This patient is feeling better. We will continue following the recommendation of Cardiology. 2. Community-acquired pneumonia. This patient is on Zosyn and, upon discharge, we can send this patient home with Augmentin for 10 days. He is not complaining of shortness of breath or fever at this moment. 3. Type 2 diabetes. He is on insulin 70/30 and sliding scale. The blood sugar is better controlled. We will continue with the same management. 4. Hypertension. Blood pressure is under control. We will continue with the same management. 5. Diabetic foot ulcer. Wound Care team is working with this problem. We will continue to monitor. 6. Chronically elevated cardiac enzymes. Cardiology Department is following this patient. They are not planning to do any kind of workup for this at this moment. Overall, this patient is doing better, but this patient currently is on Furosemide drip. Cardiology evaluated this patient and they will switch from IV to p.o. in the morning. Also, the beta sohail has been increased. Probably, this patient will be discharged in 1 or 2 days.
[2016-10-01] MEDS: LOVENOX SUBQ SCH (22:14)
[2016-10-02] MEDS: ZOSYN 3.375 GM/NS 50 ML IV SCH ×2 (03:42→08:31)
[2016-10-02] MEDS: LASIX 100 MG in NS 90 ML IV SCH (03:42)
[2016-10-02 06:32] LABS: MANUAL DIFF NEEDED? NO
[2016-10-02] MEDS: HUMALOG SUBQ SCH ×2 (06:35→11:04)
[2016-10-02 06:40] LABS: BASO% 0.5 % (0.0-0.8); EOS# 0.27 X1000 (0.0-0.7); EOS% 3.5 % (0.0-10.0); HEMATOCRIT 43.2 % (42.0-52.0); LYMPH# 1.24 X1000 (1.2-3.4); LYMPH% 15.9 % (20.5-51.1); MCH 28.6 PG (27-31); MCHC 32.4 g/dL (33-37); MCV 88.2 FL (81-99); MONO# 0.73 X1000 (0.11-0.59); MONO% 9.4 % (1.7-9.3); MPV 10.7 FL (7.4-10.4); NEUT% 70.7 % (42.2-75.2); PLT 318 X1000 (130-400)
[2016-10-02 07:00] LABS: CALCIUM 8.6 mg/dL (8.8-10.2); MAGNESIUM 1.8 mg/dL (1.5-2.7)
[2016-10-02] MEDS: NOVOLOG MIX 70/30 SUBQ SCH (08:32)
[2016-10-02] MEDS: ENTRESTO 24 MG-26 MG TABLET PO SCH (08:33)
[2016-10-02] MEDS: ASPIRIN PO SCH (08:34)
[2016-10-02] MEDS: COREG PO SCH (08:34)
[2016-10-02] MEDS: ALDACTONE PO SCH (08:34)
[2016-10-02] MEDS: LANOXIN PO SCH (08:34)
[2016-10-02] MEDS ORDERED: LASIX PO SCH (09:00)
[2016-10-02 11:24] VITALS: BP 108/62
[2016-10-03] MEDS ORDERED: LEVAQUIN PO SCH (09:00)
--- NOTE | 2016-10-03 10:19 | DISCHARGE SUMMARY ---
ADMISSION DATE: 09/27/2016 DISCHARGE DATE: 10/02/2016 DISCHARGE DIAGNOSES: 1. Acute on chronic congestive heart failure with an ejection fraction of 10-15% and severe global hypokinesis. 2. Community-acquired pneumonia. 3. Type 2 diabetes. 4. Hypertension. 5. Diabetic foot ulcer. 6. Chronically elevated cardiac enzymes. CONSULTS: Cardiology department, Dr. Mcallister. HOSPITAL COURSE: A 51-year-old, male recently discharged on the of this month, September 2016. This patient has a severe CHF with an ejection fraction between 10 and 15% with severe global hypokinesis. Also, he has a past medical history of type 2 diabetes, hypertension, and has been noted to be medically noncompliant in the past. He was at readmitted on 09/27/2016 secondary to shortness of breath. As per the patient, he states that he has been taking his medications as prescribed but for the past 3 days before the admission, he has been gaining weight, about 6 pounds. Also, he has been having palpitations and intermittent chest pain, increasing bilateral lower extremity swelling up to his mid thighs. X-ray showed an increased pulmonary vascular congestion. This patient was admitted. Cardiology department was consulted. They decided to put this patient on a furosemide drip. Also, they readjusted his blood pressure medications. This patient was improving on a daily basis. Today, in the morning, we stopped the furosemide drip and we started p.o. medication. After cardiology reevaluation, they decided to go ahead and send this patient back home with an outpatient followup by Dr. Mcallister as scheduled. Upon discharge, the patient was in stable medical condition. PHYSICAL EXAMINATION: Vital Signs: Temperature. 98.3, pulse 83, respiratory rate 18, blood pressure 108/62, oxygen saturation 98 on room air. HEENT: Head normocephalic. No trauma. PERRLA. Neck: Supple. No JVD. No masses. Central trachea. Chest: Clear to auscultation. Mild rales at the bases. Abdomen: Soft, nontender, nondistended. No hepatosplenomegaly. Extremities: There was 2+ lower extremity edema up to the knee. Neurological Examination: The patient is alert and oriented x3. No focal neurological deficits. LABORATORY: WBC 7.7, hemoglobin 14, hematocrit 43.2, platelets 318,000. Sodium 136, potassium 4, chloride 95, bicarbonate 30, BUN 33, creatinine 1.4, glucose 230, calcium 8.6, magnesium 1.8. FOLLOWUP: Followup by his primary care doctor and his mail handler sorter, Dr. Mcallister, as scheduled. DISCHARGE MEDICATIONS: Entresto 24 mg/26 mg tablet p.o. b.i.d., Novolin 70/30 with 35 units q.p.m. and 30 units q.a.m., furosemide 60 mg p.o. b.i.d., aspirin 81 mg p.o. daily, spironolactone 25 mg p.o. daily, levofloxacin 750 mg p.o. daily for 5 days, furosemide 60 mg p.o. b.i.d., carvedilol 6.25 mg p.o. b.i.d., Tessalon 100 mg p.o. t.i.d. p.r.n. Time discharging this patient, 40 minutes.
== END 2016-10-02 15:35 | disposition home or self-care (01) | DRG 291 ==
LOC: ED 17:56 → EDIPHOLD 17:57 → 4N 09-28 13:52
PROVIDERS: ATTEND Internal Medicine
DX: I13.0 Hypertensive heart and chronic kidney disease with heart failure and stage 1 through stage 4 chronic kidney disease, or unspecified chronic kidney disease (principal); I50.23 Acute on chronic systolic (congestive) heart failure; J18.9 Pneumonia, unspecified organism; E11.22 Type 2 diabetes mellitus with diabetic chronic kidney disease; N18.4 Chronic kidney disease, stage 4 (severe); I42.0 Dilated cardiomyopathy; E11.621 Type 2 diabetes mellitus with foot ulcer; Z95.0 Presence of cardiac pacemaker; I25.10 Atherosclerotic heart disease of native coronary artery without angina pectoris; E11.65 Type 2 diabetes mellitus with hyperglycemia; E78.5 Hyperlipidemia, unspecified; G47.30 Sleep apnea, unspecified; Z79.899 Other long term (current) drug therapy; Z79.4 Long term (current) use of insulin; Z79.82 Long term (current) use of aspirin; K21.9 Gastro-esophageal reflux disease without esophagitis; F17.210 Nicotine dependence, cigarettes, uncomplicated; Z87.442 Personal history of urinary calculi; L97.509 Non-pressure chronic ulcer of other part of unspecified foot with unspecified severity; R74.8 Abnormal levels of other serum enzymes
CPT/HCPCS: 71010; 71250; 80048; 80053; 82550; 82553; 82948; 83735; 83880; 84484; 85025; 85610; 85730; 93005; 96365; 96366; 96375; J1650; J1815; J1940; J2543

== ENCOUNTER 2019-03-10 14:29 | Inpatient (IN) ==
--- NOTE | 2019-03-10 15:44 | EKG Report ---
Test Performed on : 03/10/2019 2:41:18 PM Test Reason : SOB Blood Pressure : / mmHG Vent. Rate : 097 BPM Atrial Rate : 097 BPM P-R Int : 162 ms QRS Dur : 164 ms QT Int : 428 ms P-R-T Axes : 043 -89 065 degrees QTc Int : 543 ms Atrial-sensed ventricular-paced rhythm with fusion complexes Abnormal ECG When compared with ECG of 20-FEB-2019 17:31, (Unconfirmed) fusion complexes are now present premature ventricular complexes. are no longer present Vent. rate has increased BY 7 BPM Unconfirmed Result
[2019-03-10 15:52] LABS: BASO# 0.07 X1000 (0.0-0.2); EOS# 0.15 X1000 (0.0-0.7); HEMATOCRIT 49.3 % (42.0-52.0); HEMOGLOBIN 16.3 g/dL (14.0-18.0); LYMPH# 1.16 X1000 (1.2-3.4); LYMPH% 15.8 % (20.5-51.1); MCH 28.7 PG (27-31); MCHC 33.1 g/dL (33-37); MCV 86.9 FL (81-99); MONO# 0.44 X1000 (0.11-0.59); MPV 11.3 FL (7.4-10.4); NEUT% 75.2 % (42.2-75.2); PLT 204 X1000 (130-400); RBC 5.67 XMIL (4.7-6.1); WBC 7.32 X1000 (4.8-10.8)
[2019-03-10 16:00] LABS: INR 1.2; PROTIME 15.4 Seconds (11.0-16.0); PTT 27.2 Seconds (22.3-41.8)
--- NOTE | 2019-03-10 16:21 | PROVIDER DOCUMENTATION ---
HPI-General Adult - General Chief Complaint: Edema Stated Complaint: FLUID SOB SORES ON AMPUTATION Time Seen by Provider: 03/10/19 15:44 Source: patient Allergies/Adverse Reactions: Patient Allergies Allergy/AdvReac Type Severity Reaction Status Date / Time Sulfa (Sulfonamide AdvReac Intermediate NAUSEA/VOMI Verified 03/10/19 15:44 Antibiotics) TING Home Medications: Home Medication List Medication Instructions Recorded Confirmed Last Taken Type Insulin Aspart Prot/Insuln Asp 5 unit SQ TID 09/20/16 09/04/18 07/12/18 05:00 History [Novolog Mix 70-30 Vial] Torsemide [Demadex] 40 mg PO BID 08/13/17 09/04/18 07/11/18 20:00 History Sacubitril/Valsartan [Entresto 24 1 ea PO BID #60 tab 08/18/17 09/04/18 07/12/18 05:00 Rx mg-26 mg Tablet] Gabapentin [Neurontin] 2 tab PO TID 05/26/18 09/04/18 07/12/18 05:00 History Insulin Glargine [Lantus] 22 unit SUBQ QAM 05/26/18 09/04/18 07/12/18 05:00 History Doxycycline 100 mg PO BID #10 tab 07/12/18 09/04/18 Unknown Rx Bupropion HCl [Bupropion HCl ER] 150 mg PO DAILY 09/04/18 09/04/18 Unknown History Potassium Chloride E.r. [Klor-Con] 20 meq PO DAILY 09/04/18 09/04/18 Unknown His tory Carvedilol [Coreg] 3.125 mg PO BID #120 tab 09/12/18 Unknown Rx Hydrocodone/APAP 10 mg/325 mg 1 each PO Q6H tablet 09/12/18 Unknown Rx [[place]-10] Isosorb Dinit/Hydralazine [Bidil] 1 ea PO TID #180 tab 09/12/18 Unknown Rx Polyethylene Glycol 3350 [Miralax] 17 gm PO DAILY powder, packet 09/12/18 Unknown Rx Allopurinol 100 mg PO DAILY #15 tab 02/26/19 Unknown Rx Prednisone 40 mg PO DAILY #5 tab 02/26/19 Unknown Rx - History of Present Illness -Gen Adult Nature of Presenting Problems: [id number] presents to the ER with c/o volume overload and an infected sore on his left forefoot. He states that he has CHF and his weight this morning was up 8lbs. He states that he's had swelling the last several days and he's increased his torsemide but it hasn't help. He's been reducing his salt and volume intake but again that hasn't helped. He also states that the extra fluid is making him SOB with exertion. He reports that he has an infected sore on the bottom of his left forefoot also. He reports that he has been treating it for a while but his girlfriend stated this morning that it was draining, smelling and looked as if it was tunneling. He states he was recently on antibiotics for cellulitis of the knee but it did not seem to help his foot. Location of Pain/Injury: reports: feet (left foot), generalized Associated Symptoms: reports: shortness of breath, trouble walking Review of Systems - Adult - REVIEW OF SYSTEMS - ADULT Constitutional: reports: see HPI. denies: chills, fever Eyes: reports: no symptoms reported Ears, Nose, Mouth & Throat: reports: no symptoms reported Cardiovascular: reports: see HPI, edema, orthopnea Respiratory: reports: see HPI, dyspnea on exertion, shortness of breath Gastrointestinal: reports: no symptoms reported Genitourinary: reports: no symptoms reported Musculoskeletal: reports: no symptoms reported Integumentary: reports: no symptoms reported, skin sores/ulcer (left foot) Neurological: reports: no symptoms reported Psychiatric: reports: no symptoms reported Endocrine: reports: no symptoms reported Hematologic/Lymphatic: reports: no symptoms reported Allergic/Immunologic: reports: no symptoms reported All Other Systems: Reviewed and Negative Past History - Adult - PAST MEDICAL HISTORY-ADULT Review of Records: reports: Old Records Reviewed, Nursing Assessment Review, Medications Reviewed, Social history reviewed & non-contributory. Major Childhood Illnesses: reports: denies history Cardiovascular: reports: CAD, CHF, HTN, hyperlipidemia, pacemaker, other (b/l leg edema) Respiratory: reports: other (sleep apnea) Gastrointestinal: reports: denies history Obstetrical/Gynecological: reports: denies history Genitourinary: reports: denies history, kidney disease (kidney failure per pt) Musculoskeletal: reports: denies history Neurological: reports: denies history Psychiatric: reports: denies history Endocrine/Immune: reports: Diabetes Other Conditions: reports: denies history - PRIOR SURGERIES/PROCEDURES Surgical/Procedure History: reports: appendectomy, other (pacemaker) - PRIOR HOSPITALIZATIONS Prior Hospitalizations: reports: none - IMMUNIZATION STATUS Childhood Immunizations: See Nurse Assessment Flu Vaccine: See Nurse Assessment - FAMILY HISTORY Family History: reviewed, not pertinent - SOCIAL HISTORY Smoking: denies Substance Use: denies Living Situation: family Physical Exam-General - PHYSICAL EXAM-ADULT Initial Vital Signs Reviewed: Yes - CONSTITUTIONAL General Appearance: appears well, alert, no apparent distress - EYES Eyes: PERRL/EOMI, pink conjunctivae - HEAD, EARS, NOSE, MOUTH & THROAT HENMT: normocephalic/atraumatic, moist mucous membranes - NECK Neck: non-tender, full range of motion, normal inspection - RESPIRATORY Respiratory: chest non-tender, lungs clear, normal breath sounds - CARDIOVASCULAR Cardiovascular: normal peripheral pulses, regular rate, rhythm, JVD. negative: no edema (+3/4 pitting in BLE) - GASTROINTESTINAL (ABDOMEN) Abdominal Exam: normal bowel sounds, non tender, soft - MUSCULOSKELETAL Back Exam: normal inspection Extremity: normal range of motion, non-tender, pedal edema Peripheral Pulses: dorsalis-pedis (R): 2+, dorsalis-pedis (L): 2+ - SKIN Integumentary: warm/dry, erythema (BLE) - NEUROLOGIC Neurologic: grossly normal, no motor/sensory deficits - PSYCHIATRIC Psych/Mental Status: normal mood/affect, normal thought content, oriented x 3 Progress - PLAN OF CARE/RESULTS Progress/Plan/Lab Results: Vital Signs - 8 hr 03/10/19 14:50 Temperature 98.2 F Pulse Rate 93 H Respiratory Rate 20 Blood Pressure 132/88 O2 Sat by Pulse Oximetry 95 Laboratory Results - last 24 hr 03/10/19 03/10/19 03/10/19 15:35 15:35 15:35 WBC 7.32 RBC 5.67 Hgb 16.3 Hct 49.3 MCV 86.9 MCH 28.7 MCHC 33.1 RDW Std Deviation 15.0 H Plt Count 204 MPV 11.3 H Immature Gran % (Auto) 0.0 Neut % (Auto) 75.2 Lymph % (Auto) 15.8 L [place] % (Auto) 6.0 Eos % (Auto) 2.0 Baso % (Auto) 1.0 H Immature Gran # (Auto) 0.00 Neut # (Auto) 5.50 Lymph # (Auto) 1.16 L [place] # (Auto) 0.44 Eos # (Auto) 0.15 Baso # (Auto) 0.07 PT 15.4 INR 1.20 PTT (Actin FS) 27.2 Estimated GFR/1.73 m2 31 Troponin T 03/10/19 15:35 WBC RBC Hgb Hct MCV MCH MCHC RDW Std Deviation Plt Count MPV Immature Gran % (Auto) Neut % (Auto) Lymph % (Auto) [place] % (Auto) Eos % (Auto) Baso % (Auto) Immature Gran # (Auto) Neut # (Auto) Lymph # (Auto) [place] # (Auto) Eos # (Auto) Baso # (Auto) PT INR PTT (Actin FS) Estimated GFR/1.73 m2 Troponin T 0.044 Orders Category Date Time Status Cardiac Monitoring DIRECTED Care 03/10/19 15:29 Active Oxygen Therapy- ED Nursing DIRECTED Care 03/10/19 15:29 Active Saline Loc NOW Care 03/10/19 15:29 Active CHEST-1 VIEW [RAD] Stat Exams 03/10/19 15:29 Taken CBC WITH ELECTRONIC DIFF [HEME] Stat Lab 03/10/19 15:35 Completed CK PROFILE [SP CHEM] Stat Lab 03/10/19 15:35 Results COMPREHENSIVE METABOLIC PANEL [CHEM] Stat Lab 03/10/19 15:35 Results PRO B-NATRIURETIC PEPTIDE Stat Lab 03/10/19 15:35 Received PROTIME WITH INR [COAG] Stat Lab 03/10/19 15:35 Completed PTT [COAG] Stat Lab 03/10/19 15:35 Completed TROPONIN T Stat Lab 03/10/19 15:35 Completed WOUND CULTURE INC GRAM STAIN [RM] Stat Lab 03/10/19 16:00 Uncollected CP/SOB/Palp >45 yrs of Age Stat Oth 03/10/19 15:29 Ordered EKG [EKG] Stat Ther 03/10/19 15:29 Draft patient verbalizes an understanding of POC and agrees with treatment rendered here today. Result Diagrams: 03/10/19 15:35 03/10/19 15:35 - EKG 1 Time of EKG reading by physician:: 14:41 EKG Read and Signed by:: Vargas Soler EKG Interpretation (*Must complete 3 of following elements*): Abnormal Rate: 97 Rhythm: paced [place]: normal QRS: normal [place] Interval: normal - CONSULTS/PCP/HOSPITALIST Notification #1 *Consult/PCP/Hospitalist*: MARIMAR Apple for Dr Sultana Time Discussed: 17:39 Reason/Comments: CHF, diabetic foot ulcer Consult Disposition: Admit Departure - Departure Date of Disposition Decision: 03/10/19 Time of Disposition Decision: 17:41 DIAGNOSIS: CHF exacerbation Qualifiers: Heart failure type: unspecified Qualified Code(s): I50.9 - Heart failure, unspecified Diabetic foot ulcer Qualifiers: Diabetic foot ulcer location: midfoot Laterality: left Non-pressure ulcer stage: unspecified non-pressure ulcer stage Disposition: ADMITTED INPATIENT 09 Certified Medical Emergency: Emergent Condition: Critical Additional Freetext Instructions: ED Follow Up Instructions: You have been treated by a care provider in the Emergency Department. These instructions are being provided to you so you can have an understanding of how to care for yourself upon discharge. Upon discharge from the Emergency Department, you are responsible for making arrangements for follow-up care by a physician of your choice. Take all prescribed medications as directed. Return to the Emergency Department immediately for any new or worsening symptoms. You may call the Physician Referral phone number at [phone] to obtain a list of Physicians who are taking new patients. Referrals and Follow-Ups: Rayo Pagan MD [Primary Care Provider] - - Critical Care Note This patient required my direct & personal management of CC.: No Attestation - Physician/ OXANA Attestation Patient care was provided by Advanced Practice Provider:: Yes Advanced Practice Provider:: Jose Brooks Advanced Practice Provider documentation review:: The Mid-level provider documentation, treatment plan and medical decision making was reviewed by the physician who agrees with all treatment and medical decision making by the MLP. The physician spent face to face time with patient:: No Advanced Practice Provider documentation review:: Supervising physician onsite and consulted in the evaluation and care of this patient. The physician did not have a face to face encounter with the patient.
[2019-03-10 16:25] LABS: ALB/GLOB RATIO 1.2; ALBUMIN 3.6 g/dL (3.5-5.0); CALCIUM 8.9 mg/dL (8.8-10.2); CREATININE 2.2 mg/dL (0.7-1.2); POTASSIUM 3.4 mmol/L (3.5-5.1); TOTAL BILIRUBIN 0.85 mg/dL (0.20-1.00); TOTAL PROTEIN 6.7 g/dL (6.3-8.3)
--- NOTE | 2019-03-10 16:41 | Diag Imaging Result Doc PS360 ---
EXAM: CHEST-1 VIEW HISTORY: SOB TECHNIQUE: Chest single view COMPARISON: 02/20/2019 FINDINGS: Poor inspiratory effort. The heart is mildly enlarged. Left pacemaker. The vessels are not distended. There are no infiltrates. No effusion identified. IMPRESSION: Mild cardiac megaly Electronically signed by Iglesia Mcelroy 03/10/2019 4:38 PM
[2019-03-10] MEDS ORDERED: TYLENOL PO PRN (20:08)
--- NOTE | 2019-03-10 20:58 | Diag Imaging Result Doc PS360 ---
EXAM: FOOT COMPLETE LEFT HISTORY: left foot dm ulcer/ro osteomyelitis TECHNIQUE: Left foot, three views COMPARISON: None. FINDINGS: The mid and distal foot have been amputated. There is soft tissue swelling to the stump. There is a soft tissue ulcer near the fifth metatarsal. IMPRESSION: Prior partial amputation. An MRI is recommended if there is clinical suspicion for osteomyelitis. Electronically signed by Iglesia Mcelroy 03/10/2019 8:56 PM
[2019-03-10] MEDS: MIRALAX PO SCH (21:07)
[2019-03-10] MEDS: LASIX IV SCH (21:07)
--- NOTE | 2019-03-10 21:10 | HISTORY AND PHYSICAL ---
PRIMARY CARE PHYSICIAN: Dr. Rayo Pagan. CHIEF COMPLAINT: Increased weight, shortness of breath with exertion, and also has noted an infected left plantar diabetic foot ulcer. HISTORY OF PRESENTING ILLNESS: This is a 53-year-old male who presents to [facility] with complaints of an 8-pound weight gain this morning. He states he has been short of breath with exertion. He states that he has had bilateral lower extremity edema over the last several days and increased his torsemide, but it did not help. He also has tried decreasing his salt and volume intake, but again that had not helped. He is also noted to have an infected diabetic foot ulcer to the posterior of the left foot that appears to be tunneling. He states he was on antibiotics recently for cellulitis of his knee, but that did not seem to help his foot. His laboratory data with no changes from recent for this patient. He has chronic kidney disease and is stable at 2.2 today. His proBNP is 5023, which appears to be around his baseline. On 02/20 he was 4427, on 12/05 he was 5635, so not much change in that. His chest x-ray did show some mild cardiomegaly, so he will be admitted for further evaluation and treatment. It is noted that his last echocardiogram on file was in 07/2018 and it showed an ejection fraction of 10% with systolic dysfunction. PAST MEDICAL HISTORY: Systolic CHF with an ejection fraction of 10% on 07/2018; diabetes type 2; hypertension; chronic pain; gout; coronary artery disease; hyperlipidemia. PAST SURGICAL HISTORY: 1. Pacemaker/defibrillator placement. 2. Left transmetatarsal amputation. 3. MediPort placement. 4. Appendectomy. FAMILY HISTORY: Coronary artery disease in his father, lung cancer and diabetes in first-degree relatives. SOCIAL HISTORY: He lives with family. He continues to smoke a half a pack of cigarettes a day, but states he is trying to cut back. Denies any alcohol or illicit drug use. ALLERGIES: Sulfa. HOME MEDICATIONS: A current list will need to be obtained, reconciled, reviewed and restarted as appropriate. We will place an order for nursing to update and confirm home medications. LABORATORY DATA: White blood cell count of 7.32, hemoglobin 16.3, hematocrit 49.3, platelets 204,000. PT and INR of 15.4 and 1.20. Sodium of 135, potassium 3.4, chloride 90, CO2 is 32, BUN of 77, creatinine 2.2, glucose 233. Cardiac enzyme was negative. ProBNP of 5023. DIAGNOSTIC DATA: Chest x-ray showed mild cardiomegaly. EKG showed atrial-sensed, ventricular paced rhythm with fusion complexes at 97. REVIEW OF SYSTEMS: He denied any fever, chills, blurred vision, dizziness, chest pain or coughing. He has been short of breath. He denied any abdominal pain, constipation, diarrhea, burning or hurting with urination. PHYSICAL EXAMINATION: VITAL SIGNS: On arrival he had a temperature of 98.2 degrees, pulse 93, respirations 20, blood pressure 132/88, saturating 95% on room air. GENERAL: This is a 53-year-old male who is lying in the bed and answers questions appropriately. HEENT: Normocephalic, atraumatic. Normal ENT inspection. Oropharynx and nares are clear. Eyes: Pupils are equal, round, and reactive to light. Extraocular movements are intact. NECK: Normal inspection. Normal range of motion. LUNGS: Clear to auscultation bilaterally, with equal lung expansion and chest wall movement. HEART: Regular rate and rhythm. No murmurs, rubs or gallops. He is noted to have 3+ pitting edema to bilateral lower extremities. ABDOMEN: Soft, nontender, nondistended. Bowel sounds are present x4 quadrants. MUSCULOSKELETAL: He has 5/5 strength x4 extremities. NEUROLOGICAL: Cranial nerves 2-12 are grossly intact. SKIN: He is noted to have a diabetic foot ulcer to the left plantar area closest to where his 5th metatarsal would be. It is draining some serosanguineous fluid, appears to be tunneling but difficult to see. No surrounding erythema or edema noted to this area. He states it has been there for quite a while, and he thought it was getting better but now has started worsening. ASSESSMENT: 1. Acute systolic congestive heart failure. 2. Left diabetic foot ulcer. 3. Uncontrolled diabetes type 2. 4. Tobacco abuse. PLAN: He will be admitted to the medical unit, placed on telemetry, O2 per protocol. We will consult Wound Care. We will consult Surgery. We will place on Lasix 80 mg IV q.12, place on diabetic diet. Daily weights. We need to obtain an actual weight of this patient at this time, not just a stated weight, and we will do that. We will update and confirm home medications. We will recheck a CBC and BMP in the a.m. Further orders after seen by attending and risk and insurance consultant. Dictated by MARIMAR Apple for Brandon Sultana MD cc: MARIMAR Apple MD agree with the above. the following is my own face to face assessment. patient with mild acute on chronic systolic CHF. increased LE edema and nonproductive cough but cxr ok. satting well. does have marked BL LE edema on exam. left plantar foot with small but deep ulcer, not clearly infected, no warmth or erythema, no purulent drainage. will ask surgery to see but suspect only supportive care or bedside debridement will be necessary. CKD3: appears stable. gout: no sign of flare currently. constipation: will give miralax. MTDD
[2019-03-11] MEDS: NEURONTIN PO SCH ×4 (00:36→20:44)
[2019-03-11] MEDS: NORCO-10 PO PRN ×4 (00:36→20:41)
[2019-03-11] MEDS: COREG PO SCH ×3 (00:37→20:45)
--- NOTE | 2019-03-11 06:36 | GENERAL SURGERY CONSULTATION ---
DATE: 03/11/2019 REQUESTING PHYSICIAN: Hospitalist. CONSULT REQUEST: Diabetic foot ulcer on the left foot. HISTORY OF PRESENT ILLNESS: A 53-year-old gentleman who presented initially with complaints of 8 pounds weight gain with shortness of breath on exertion. He has been having bilateral lower extremity edema over several days. He does have a significant history of systolic congestive heart failure with an ejection fraction of 10%. He has been admitted for that and evaluation by the hospitalist. He also has a diabetic foot ulcer, which they evaluated with a foot x-ray, which does not seem to show any signs of osteomyelitis at this time. I was asked to weigh an opinion. He says his wound has been present for a while. He did have a transmetatarsal amputation on that foot previously. PAST MEDICAL HISTORY: 1. Systolic congestive heart failure with ejection fraction of 10%. 2. Diabetes mellitus type 2. 3. Chronic pain. 4. Gout. 5. Coronary artery disease. 6. Hyperlipidemia. PAST SURGICAL: 1. Pacemaker with a defibrillator. 2. Left transmetatarsal amputation. 3. Mediport placement. 4. Appendectomy. FAMILY HISTORY: Positive for coronary artery disease. SOCIAL HISTORY: Lives with family. Current smoker. ALLERGIES: Sulfa. HOME MEDICATIONS: Reviewed. REVIEW OF SYSTEMS: Full 14 systems were reviewed and are negative, except those specified in HPI. PHYSICAL EXAMINATION: Vital Signs: Patient is currently afebrile. His vital signs are stable. General: No acute distress. Alert, interactive, male, looks stated age. HEENT: Normocephalic, atraumatic. Pupils equal, round, reactive to light. Mucous membranes moist. Oropharynx benign. Neck: Supple. Trachea midline. Cardiovascular: Regular rate and rhythm. Lungs: Grossly clear. Abdomen: Soft, nontender, nondistended. Extremities: Left transmetatarsal amputation noted, healing well. There is what looks like a callus with a tract noted on the lateral aspect of the plantar surface of the left foot. No active purulence drainage. There seems to be mostly callus, the hole itself is maybe 5 mm, but does tract. Neurologic: Grossly intact. Skin: Wound as noted above. Vascular: All extremities perfused. LABORATORY: White blood count is normal, hematocrit is normal, platelet count normal. Remainder of labs reviewed. Of note, his BNP is over 5000. X-ray as noted above. ASSESSMENT AND PLAN: A 53-year-old gentleman with diabetic foot ulcer. 1. Diabetic foot ulcer. At this time, we will get wound care to see the patient. We will try to clean the wound right now with Vashe. No major plans for surgical intervention at this moment. He will likely need to have new shoe inserts given where the weight distribution is on his foot. 2. Multiple medical comorbidities. Currently being managed by the hospitalist system. 3. He does have congestive heart failure with an ejection fraction of 10%, which probably makes general anesthesia for any kind of major debridement prohibitive. cc: Enzo Martinez MD
[2019-03-11] MEDS: HUMULIN R SUBQ SCH ×4 (06:53→20:45)
[2019-03-11 07:45] LABS: BASO# 0.04 X1000 (0.0-0.2); BASO% 0.6 % (0.0-0.8); EOS# 0.24 X1000 (0.0-0.7); EOS% 3.7 % (0.0-10.0); HEMATOCRIT 49.8 % (42.0-52.0); HEMOGLOBIN 16.3 g/dL (14.0-18.0); LYMPH# 0.96 X1000 (1.2-3.4); MCH 29.1 PG (27-31); MCHC 32.7 g/dL (33-37); MCV 88.8 FL (81-99); MONO# 0.45 X1000 (0.11-0.59); MPV 11.1 FL (7.4-10.4); NEUT# 4.73 X1000 (1.4-6.5); NEUT% 73.7 % (42.2-75.2); PLT 158 X1000 (130-400); RBC 5.61 XMIL (4.7-6.1); RDW 15.3 % (11.5-14.5); WBC 6.42 X1000 (4.8-10.8)
[2019-03-11 08:02] LABS: CALCIUM 8.7 mg/dL (8.8-10.2); CREATININE 1.7 mg/dL (0.7-1.2); POTASSIUM 2.8 mmol/L (3.5-5.1)
[2019-03-11] MEDS: LASIX IV SCH ×2 (09:50→20:42)
[2019-03-11] MEDS: POTASSIUM CHLORIDE 20 MEQ/SWI 20 MEQ/100 ML IVPB IV SCH ×2 (09:51→13:01)
[2019-03-11] MEDS: MIRALAX PO SCH (09:53)
[2019-03-11] MEDS: LANTUS INSULIN SUBQ SCH (09:54)
--- NOTE | 2019-03-11 17:12 | PROGRESS NOTE ---
DATE: 03/11/2019 INTERVAL HISTORY: The patient still with some pretty significant lower extremity edema up to the posterior thigh. Still essentially no drainage from left foot ulcer. Minimal dyspnea on exertion, slightly improved. The patient is comfortable at rest. Still endorses some orthopnea. No acute events overnight. No other new complaints. REVIEW OF SYSTEMS: Twelve point review of systems negative except as per interval history. LABS: WBC 6.4, hemoglobin 16.3, hematocrit 49.8, platelets 158,000. Sodium 136, potassium 2.8, BUN 69, creatinine 1.7, glucose 149 to 224. VITALS: T-max 98.2, pulse 93, blood pressure 143/85, respiratory rate 20, O2 saturation 92% on room air. PHYSICAL EXAMINATION: General: No acute distress. Vitals: As above. HEENT: Normocephalic, atraumatic. Moist mucous membranes. No cervical adenopathy. Cardiovascular: Regular rate and rhythm. No murmurs noted. Defibrillator in place on upper chest without sign of infection. Pulmonary: Clear to auscultation bilaterally aside from mild bibasilar crackles. Good air entry. Abdomen: Soft, nontender, nondistended. Bowel sounds positive. Extremities: Peripheral pulses decreased but present. 1 to 2+ pitting edema of the legs bilaterally, circumferential from the knee down and posterior in the thighs. Neurologic: Cranial nerves grossly intact. No focal deficits. Psychiatric: Normal mood and affect. Awake, alert, oriented x3. Skin: Left foot plantar ulcer, essentially unchanged. Minimal serosanguineous drainage on bandage, but none obvious on exam. ASSESSMENT AND PLAN: 1. Mild acute on chronic systolic congestive heart failure. Last known ejection fraction 10 earlier this year. Some orthopnea and marked lower extremity swelling but O2 saturations generally okay. We appear to be getting a pretty good diuresis. He is down approximately 2.5 L since admission. We will continue aggressive Lasix with 80 b.i.d. If we stop getting good diuresis, may add metolazone but seems to be doing okay right now. Little improvement in lower extremity edema so far but hopefully with continued diuresis that will improve. 2. Left foot ulcer. Little to suggest infection at this point. No purulence, erythema or warmth. Evaluated by surgery and they feel that conservative management with cleaning and offloading of weight is the appropriate treatment. We will continue to monitor. 3. Chronic kidney disease 3. Creatinine actually somewhat improved today beyond what he thought to be his baseline. Definitely tolerating diuresis so far. We will continue to monitor kidney function. 4. Hypokalemia, significantly low today. We will replete and monitor. 5. Diabetes mellitus. Some occasional moderate elevations but overall reasonable control thus far. We will continue to monitor and adjust as needed. 6. Gout. No sign of exacerbation at this time. Monitor. 7. Nonischemic cardiomyopathy. Patient's last catheterization in 2013 with minimal coronary artery disease at that time. He has no heart failure but does not appear to be related to coronary disease. 8. Tobacco abuse patient has been counseled on cessation and offered nicotine patch. 9. Diabetic neuropathy. Continue home Neurontin.
[2019-03-12] MEDS: HUMULIN R SUBQ SCH ×4 (06:02→22:16)
--- NOTE | 2019-03-12 07:43 | GENERAL SURGERY PROGRESS NOTE ---
DATE: 03/12/2019 SUBJECTIVE: Patient seems to be doing okay. OBJECTIVE: Vital Signs: Patient is currently afebrile. His vital signs stable. General: No acute distress. HEENT: Normocephalic, atraumatic. Pupils equal, round, reactive to light. Mucous membranes moist. Oropharynx benign. Neck: Supple. Trachea midline. Cardiovascular: Regular rate and rhythm. Lungs: Grossly clear. Abdomen: Soft, nontender, nondistended. Extremities: Wound to the left foot stable, some drainage, but otherwise is about the same. Extremities: Moves all extremities. Neurologic: Grossly intact. LABORATORY: None this morning as of yet. Reviewed labs from yesterday. White blood cell count still normal. ASSESSMENT AND PLAN: A 53-year-old gentleman with mild acute on chronic systolic congestive heart failure and left foot ulcer. 1. Mild acute on chronic systolic congestive heart failure. At this time, defer to the hospitalist on management. This is likely the main thing keeping him in the hospital. 2. Left foot ulcer. At this time, continue local wound care. We will need to try to get new shoe inserts to try to offload the pressure, but otherwise continue local wound care. Patient is probably not an ideal surgical candidate given his severe congestive heart failure for any kind of major debridement or surgical intervention. cc: Enzo Martinez MD
[2019-03-12] MEDS: NEURONTIN PO SCH ×3 (09:30→22:16)
[2019-03-12] MEDS: MIRALAX PO SCH (09:30)
[2019-03-12] MEDS: COREG PO SCH ×2 (09:30→22:15)
[2019-03-12] MEDS: LASIX IV SCH ×2 (09:31→22:15)
[2019-03-12] MEDS: NORCO-10 PO PRN ×3 (09:31→22:17)
[2019-03-12] MEDS: LANTUS INSULIN SUBQ SCH (09:31)
[2019-03-12 11:19] LABS: BASO# 0.04 X1000 (0.0-0.2); BASO% 0.5 % (0.0-0.8); EOS# 0.27 X1000 (0.0-0.7); EOS% 3.2 % (0.0-10.0); HEMATOCRIT 47.2 % (42.0-52.0); HEMOGLOBIN 15.5 g/dL (14.0-18.0); LYMPH# 0.92 X1000 (1.2-3.4); LYMPH% 10.9 % (20.5-51.1); MCH 28.9 PG (27-31); MCHC 32.8 g/dL (33-37); MCV 88.1 FL (81-99); MONO# 0.47 X1000 (0.11-0.59); MONO% 5.6 % (1.7-9.3); MPV 10.7 FL (7.4-10.4); NEUT# 6.75 X1000 (1.4-6.5); NEUT% 79.8 % (42.2-75.2); PLT 178 X1000 (130-400); RBC 5.36 XMIL (4.7-6.1); WBC 8.45 X1000 (4.8-10.8)
[2019-03-12 11:45] LABS: CALCIUM 8.4 mg/dL (8.8-10.2); CREATININE 1.8 mg/dL (0.7-1.2); POTASSIUM 3.1 mmol/L (3.5-5.1)
[2019-03-12] MEDS ORDERED: ZAROXOLYN PO ONE (14:01)
--- NOTE | 2019-03-12 15:28 | Diag Imaging Result Doc PS360 ---
CHEST-1 VIEW - 03/12/2019 INDICATION: bloody sputum COMPARISON: 03/10/2019 FINDINGS: Stable biventricular pacemaker. Stable mild cardiomegaly. There are faint interstitial infiltrates in the left lung base. Right lung base appears fairly clear. Pulmonary vascularity is top normal. No pneumothorax or pleural effusion. IMPRESSION: Infiltrate in the left lung base suggesting bronchopneumonia. Cardiomegaly. Electronically signed by Oswaldo Blackman 03/12/2019 3:26 PM
--- NOTE | 2019-03-12 15:41 | Diag Imaging Result Doc PS360 ---
LUNG SCAN / VQ - 03/12/2019 INDICATION: hemoptysis, dyspnea TECHNIQUE: 41.1 mCi of DTPA was used for inhalation. 6.2 mCi of MAA was used for injection. COMPARISON: Chest x-ray 03/10/2019, VQ scan 09/22/2016 FINDINGS: There is normal localization pattern of both radiotracer's. There is no pulmonary perfusion defects. IMPRESSION: Negative for pulmonary embolism. Electronically signed by Oswaldo Blackman 03/12/2019 3:39 PM
--- NOTE | 2019-03-12 16:00 | Diag Imaging Result Doc PS360 ---
CT THORAX W/O CONTRAST - 03/12/2019 INDICATION: hemoptysis, dyspnea COMPARISON: Chest x-ray from earlier today. Chest CT 09/28/2016. FINDINGS: There is a biventricular pacemaker in good position. There is diffuse shotty mediastinal lymph nodes, but no adenopathy. There is cardiomegaly. There is dense contrast in the gallbladder. There is some mild edema at the root of the mesentery. Otherwise upper abdomen appears normal. There are small bilateral pleural effusions. There is hazy interstitial pulmonary edema bilaterally. There are also patchy bilateral lower lobe infiltrates right greater than left. Bones are grossly intact. IMPRESSION: 1. Cardiomegaly, pulmonary edema, small pleural effusions. 2. Nonspecific bilateral lower lobe infiltrates. Pneumonia cannot be excluded. This exam was performed using automated exposure control, adjustment of mA or kV according to patient size, and/or use of iterative reconstruction technique Electronically signed by Oswaldo Blackman 03/12/2019 3:58 PM
[2019-03-12] MEDS: ZOFRAN IV PRN (16:40)
--- NOTE | 2019-03-12 16:58 | PROGRESS NOTE ---
DATE: 03/12/2019 INTERVAL HISTORY: The patient with slowly improving lower edema. Still with some posterior thigh edema to the point that it is limiting his range of movement somewhat, but is improving. Still no significant drainage from left foot ulcer. Minimal dyspnea on exertion and orthopnea continues to improve slowly. REVIEW OF SYSTEMS: Twelve point review of systems negative except as per interval history. LABORATORY DATA: CBC unremarkable, sodium 133, potassium 3.1, BUN 57, creatinine 1.8, glucose 107 to 183. VITAL SIGNS: T-max 98.2 degrees, pulse 95, respirations 16, blood pressure 126/82. O2 saturation 91% on room air. PHYSICAL EXAMINATION: General: No acute distress. Vital Signs: As above. HEENT: Normocephalic, atraumatic. Moist mucous membranes. No cervical adenopathy. Cardiovascular: Regular rate and rhythm. No murmurs noted. Defibrillator in place on the upper chest. Still with no sign of infection. Pulmonary: Mild bibasilar crackles, slightly improved. Otherwise, clear to auscultation bilaterally. Abdomen: Soft, nontender, nondistended. Bowel sounds positive. Extremities: Peripheral pulses decreased but present. 1 to 2+ pitting edema of the legs bilaterally. Remains circumferential from the knee down, although much less tense than previous. Still some posterior edema in the thighs, which does seem to limit his range of motion slightly. Neurologic: Cranial nerves grossly intact. No focal deficits. Psychiatric: Normal mood and affect. Awake, alert, oriented x3. Skin: Left foot plantar ulcer remains bandaged. ASSESSMENT AND PLAN: 1. Mild acute on chronic systolic congestive heart failure. Last known EF 10% less than a year ago. Orthopnea and dyspnea on exertion, improving slowly. Marked lower extremity swelling, improving very slowly, but still fairly significant up into his thighs as above. Good diuresis for the 1st couple days with Lasix 80 b.i.d. but less diuresis this morning. We will go ahead and give him a dose of metolazone to see if we can maximize his diuresis and try to improve his ability to ambulate. Kidneys appear to be tolerating diuresis so far. 2. Left foot ulcer. Does not really appear infected. No purulence, erythema, or warmth. Evaluated by Surgery and they felt that conservative management with offloading and cleaning was appropriate. Continue to monitor. 3. Chronic kidney disease 3. Creatinine roughly stable. 1.8 today. Appears to be tolerating diuresis so far. Continue to monitor. 4. Hypokalemia, still low. Will further replete and monitor. 5. Diabetes mellitus control acceptable on current regimen. Continue to monitor glucoses. 6. Gout. No sign of exacerbation. Monitor. 7. Nonischemic cardiomyopathy. The patient's last catheterization 2013 with minimal coronary artery disease at that time. He has significant heart failure, but it does not appear to be related to coronary artery disease. 8. Tobacco abuse. Patient has been counseled on cessation. Offered nicotine patch. 9. Diabetic neuropathy. Continue home Neurontin.
[2019-03-13] MEDS: HUMULIN R SUBQ SCH ×4 (06:09→21:11)
[2019-03-13] MEDS: NORCO-10 PO PRN ×3 (06:09→21:17)
[2019-03-13] MEDS: ZOFRAN IV PRN ×2 (06:10→21:17)
[2019-03-13 06:48] LABS: BASO# 0.06 X1000 (0.0-0.2); BASO% 0.8 % (0.0-0.8); EOS# 0.27 X1000 (0.0-0.7); EOS% 3.5 % (0.0-10.0); HEMATOCRIT 47.3 % (42.0-52.0); HEMOGLOBIN 15.6 g/dL (14.0-18.0); LYMPH% 14.5 % (20.5-51.1); MCV 87.9 FL (81-99); MONO# 0.49 X1000 (0.11-0.59); MONO% 6.4 % (1.7-9.3); MPV 11.2 FL (7.4-10.4); NEUT# 5.69 X1000 (1.4-6.5); NEUT% 74.8 % (42.2-75.2); PLT 173 X1000 (130-400); RBC 5.38 XMIL (4.7-6.1); WBC 7.61 X1000 (4.8-10.8)
[2019-03-13 06:58] LABS: CALCIUM 8.3 mg/dL (8.8-10.2); CREATININE 1.8 mg/dL (0.7-1.2); POTASSIUM 2.8 mmol/L (3.5-5.1)
[2019-03-13] MEDS: COREG PO SCH ×2 (08:18→21:17)
[2019-03-13] MEDS: LANTUS INSULIN SUBQ SCH (08:18)
[2019-03-13] MEDS: LASIX IV SCH ×2 (08:18→21:17)
[2019-03-13] MEDS: NEURONTIN PO SCH ×3 (08:19→21:17)
[2019-03-13] MEDS: MIRALAX PO SCH (08:19)
[2019-03-13 10:56] VITALS: BP 135/86
[2019-03-13] MEDS ORDERED: POTASSIUM CHLORIDE 60 MEQ in NS 500 ML IV ONE (12:17)
--- NOTE | 2019-03-13 16:50 | DISCHARGE SUMMARY ---
ADMISSION DATE: 03/10/2019 DISCHARGE DATE: 03/13/2019 CONSULTS: General surgery, Dr. Martinez. PERTINENT STUDIES: Chest x-ray with cardiomegaly but no edema. Foot x-ray with partial amputation. Some soft tissue swelling into the stump. Soft tissue ulcer near the 5th metatarsal. No clear osteomyelitis. CT chest with cardiomegaly and minimal pulmonary edema. Small pleural effusions. V/Q scan negative for pulmonary embolism. DISCHARGE DIAGNOSES: 1. Mild acute on chronic systolic congestive heart failure. 2. Left foot diabetic ulcer. 3. CKD 3. 4. Hypokalemia. 5. Diabetes mellitus. 6. Gout. 7. Nonischemic cardiomyopathy. 8. Tobacco abuse. 9. Diabetic neuropathy. HOSPITAL COURSE: The patient presented initially complaining primarily of worsening lower extremity edema up to the hip as well as mildly increased shortness of breath on exertion and slight worsening of his chronic left foot ulcer. He was found to have elevated BNP. He did have marked lower extremity edema, although lungs are fairly clear. He was placed on high-dose Lasix 80 mg IV b.i.d. which gave good diuresis initially. Started to slow down after a couple days of metolazone with additional good diuresis. Patient over the course of the hospitalization was down approximately 5 L. Repeat BNP on the day of discharge had gone from 5000 to 3200. The patient was found to have ulcer on the plantar surface of his left foot. It was fairly deep but not to the bone. It had minimal tunneling. It did not have any erythema, warmth, or purulent drainage to suggest infection. It was evaluated by Surgery who felt that debridement was not needed, all he needed was local wound care and offloading of weight. With diuresis, patient's lower extremity edema improved although quite slowly. Still had some fairly significant edema at discharge, but it is felt he had reached the maximum benefit of being in the hospital. As his kidneys appear to be tolerating aggressive diuresis fairly well, his home diuretics were increased to Bumex 4 mg b.i.d. with every other day metolazone and daily spironolactone. Discussed with patient that he would need to follow up with PCP for lab recheck in the next few days to make sure his kidneys were continued to tolerate aggressive diuresis. He had a couple episodes of hemoptysis the day before discharge, prompting evaluation with chest CT and lung V/Q scan. There was no clot found and chest CT showed which was favored to be left lower lobe atelectasis. Radiology's read could not exclude pneumonia, but patient had no leukocytosis, no respiratory symptoms, no fever, so it was thought that he did not have pneumonia. This was discussed with the patient. He was instructed that if he began having increased respiratory symptoms, increased cough or fever, he was to return to care immediately. The patient did have hypokalemia pretty consistently over the hospitalization. He was started on spironolactone at discharge, so he was not put back on his home potassium replacement, but was again instructed to have close follow up with his PCP with a lab recheck to see if he needs further potassium repletion in addition to the potassium-sparing diuretic. The patient's other chronic comorbidities were relatively stable over the course of hospitalization. Patient reports being intolerant of LEATHA/ARB so he was not prescribed one at discharge. DISCHARGE DIET: Cardiac diabetic. DISCHARGE MEDICATIONS: Lantus as previously prescribed, Neurontin 100 mg 2 tablets p.o. t.i.d., NovoLog 70/30 as previously prescribed, spironolactone 25 mg p.o. daily, Bumex 4 mg p.o. b.i.d., Coreg 3.125 mg p.o. b.i.d., metolazone 10 mg every other day, MiraLAX daily, [place] as previously prescribed. FOLLOWUP AND PLAN: Patient discharging home on increased diuretic to follow up with PCP within the next few days for lab check. Return to care if increased respiratory symptoms or fever develop. Greater than 30 minutes spent arranging discharge and counseling patient. [facility]
[2019-03-13] MEDS ORDERED: NS 250 ML ONE (19:50)
== END 2019-03-13 22:00 | disposition home or self-care (01) | DRG 291 ==
LOC: ED 14:29 → 2N 18:36 → 3N 19:38
PROVIDERS: ATTEND Internal Medicine

== ENCOUNTER 2019-05-10 14:01 | Inpatient (IN) ==
--- NOTE | 2019-05-10 15:16 | EKG Report ---
Test Performed on : 05/10/2019 2:37:58 PM Test Reason : dizziness Blood Pressure : / mmHG Vent. Rate : 093 BPM Atrial Rate : 093 BPM P-R Int : 160 ms QRS Dur : 186 ms QT Int : 466 ms P-R-T Axes : 043 254 062 degrees QTc Int : 579 ms Atrial-sensed ventricular-paced rhythm with occasional premature ventricular complexes. Abnormal ECG When compared with ECG of 10-MAR-2019 14:41, fusion complexes are no longer present premature ventricular complexes. are now present Vent. rate has decreased BY 4 BPM Unconfirmed Result
[2019-05-10 15:19] LABS: BASO# 0.02 X1000 (0.0-0.2); BASO% 0.2 % (0.0-0.8); EOS# 0.06 X1000 (0.0-0.7); EOS% 0.6 % (0.0-10.0); HEMATOCRIT 49.5 % (42.0-52.0); HEMOGLOBIN 15.5 g/dL (14.0-18.0); IMM GRAN# 0.02 X1000 (0.0-0.04); IMM GRAN% 0.2 % (0.0-0.5); LYMPH# 0.74 X1000 (1.2-3.4); LYMPH% 7.3 % (20.5-51.1); MCH 27.3 PG (27-31); MCHC 31.3 g/dL (33-37); MCV 87.1 FL (81-99); MONO% 3.9 % (1.7-9.3); MPV 10.7 FL (7.4-10.4); NEUT% 87.8 % (42.2-75.2); PLT 151 X1000 (130-400); RBC 5.68 XMIL (4.7-6.1); RDW 18.5 % (11.5-14.5); WBC 10.14 X1000 (4.8-10.8)
--- NOTE | 2019-05-10 15:19 | PROVIDER DOCUMENTATION ---
HPI-General Adult - General Chief Complaint: Dizziness Stated Complaint: DIZZY, NAUSEAOUS COUGH Time Seen by Provider: 05/10/19 14:46 Source: patient Allergies/Adverse Reactions: Patient Allergies Allergy/AdvReac Type Severity Reaction Status Date / Time Sulfa (Sulfonamide AdvReac Intermediate NAUSEA/VOMI Verified 05/10/19 15:05 Antibiotics) TING Home Medications: Home Medication List Medication Instructions Recorded Confirmed Last Taken Type Insulin Aspart Prot/Insuln Asp 5 unit SQ TID 09/20/16 05/10/19 05/09/19 History [Novolog Mix 70-30 Vial] Gabapentin [Neurontin] 2 tab PO TID 05/26/18 05/10/19 05/09/19 History Insulin Glargine [Lantus] 22 unit SUBQ QAM 05/26/18 05/10/19 05/09/19 History Carvedilol [Coreg] 3.125 mg PO BID #120 tab 09/12/18 05/10/19 05/09/19 Rx Hydrocodone/APAP 10 mg/325 mg 1 each PO Q6H tablet 09/12/18 05/10/19 05/08/19 Rx [Coolspring-10] Polyethylene Glycol 3350 [Miralax] 17 gm PO DAILY powder, packet 09/12/18 05/10/19 05/09/19 Rx Bumetanide 4 mg PO BID #120 tab 03/13/19 05/10/19 05/09/19 Rx Metolazone 10 mg PO EVERY OTHER DAY #30 tab 03/13/19 05/10/19 05/09/19 Rx Spironolactone [Aldactone] 25 mg PO DAILY #30 tab 03/13/19 05/10/19 05/09/19 Rx Torsemide [Demadex] 20 mg PO BID 05/10/19 05/10/19 05/09/19 History - History of Present Illness -Gen Adult Nature of Presenting Problems: MAIN REASON PATIENT CAME IN TODAY BECAUSE OF NAUSEA AND ALSO HEAD CONGESTION FOR ONE WEEK THAT HE FEELS DIZZINESS AND SINUS DISCOMFORT. PATIENT STATES HE HAS NOT HAD BOWEL MOVEMENT IN 8 DAYS AND STATES HE IS NOT EXAGGERATING. PATIENT DENIES LOC OR VERTIGO OR TINNITUS. DENIES CHEST PAIN BUT ENDORSE DYSPNEA. DENIES FEVER, CHILL, NIGHT, BLURRY VISION, EAR PAIN, SORE THROAT, PALPITATION, VOMITING, DIARRHEA, MYALGIA, ARTHRALGIA, NEW RASH/LESION, AND HEAT OR COLD INTOLERANCE. Location of Pain/Injury: reports: none Pain Radiation: reports: no radiation Review of Systems - Adult - REVIEW OF SYSTEMS - ADULT Constitutional: denies: chills, fever, fatique, weight loss Eyes: denies: blurred vision, double vision, eye pain Ears, Nose, Mouth & Throat: reports: sinus problem. denies: ear discharge, ear pain, hearing loss, tinnitus, hoarseness, throat pain, throat swelling Cardiovascular: denies: chest pain, heart murmur, irregular heart rate, palpitations, syncope Respiratory: reports: cough (DRY), shortness of breath (STATES HE HAS CHF; SOB ONLY WHEN RN MADE THE BED FLAT; DENIES JUNIOR.). denies: chronic cough, dyspnea on exertion Gastrointestinal: reports: constipation, nausea. denies: abdominal pain, hematemesis, diarrhea, difficulty swallowing, frequent heartburn, poor appetite, vomiting Genitourinary: denies: dysuria Musculoskeletal: reports: no symptoms reported Integumentary: reports: no symptoms reported Neurological: denies: ataxia, loss of balance, numbness, seizure, slurred speech, syncope Psychiatric: reports: no symptoms reported Endocrine: denies: cold intolerance, heat intolerance Hematologic/Lymphatic: reports: no symptoms reported Allergic/Immunologic: reports: no symptoms reported Past History - Adult - PAST MEDICAL HISTORY-ADULT Review of Records: reports: Old Records Reviewed Major Childhood Illnesses: reports: denies history Cardiovascular: reports: CAD, CHF, HTN, hyperlipidemia, pacemaker, other (b/l leg edema) Respiratory: reports: other (sleep apnea) Gastrointestinal: reports: denies history Obstetrical/Gynecological: reports: denies history Genitourinary: reports: denies history, kidney disease (kidney failure per pt) Musculoskeletal: reports: denies history Neurological: reports: denies history Psychiatric: reports: denies history Endocrine/Immune: reports: Diabetes Other Conditions: reports: denies history - PRIOR SURGERIES/PROCEDURES Surgical/Procedure History: reports: appendectomy, other (pacemaker) - PRIOR HOSPITALIZATIONS Prior Hospitalizations: reports: none - IMMUNIZATION STATUS Childhood Immunizations: See Nurse Assessment Flu Vaccine: See Nurse Assessment - FAMILY HISTORY Family History: reviewed, not pertinent Physical Exam-General - PHYSICAL EXAM-ADULT Initial Vital Signs Reviewed: Yes - CONSTITUTIONAL General Appearance: alert, no apparent distress, lethargic - EYES Eyes: PERRL/EOMI - HEAD, EARS, NOSE, MOUTH & THROAT HENMT: normocephalic/atraumatic, moist mucous membranes - NECK Neck: non-tender, full range of motion, supple - RESPIRATORY Respiratory: chest non-tender, lungs clear, normal breath sounds, no pleuratic chest pain, no respiratory distress, no accessory muscle use - CARDIOVASCULAR Cardiovascular: normal peripheral pulses, regular rate, rhythm, no edema, no gal lop, no JVD, no murmur - GASTROINTESTINAL (ABDOMEN) Abdominal Exam: normal bowel sounds, non tender, soft - MUSCULOSKELETAL Back Exam: normal inspection, no CVA tenderness, no vertebral tenderness Extremity: normal range of motion, non-tender, normal gait - SKIN Integumentary: normal color, normal turgor, warm/dry - NEUROLOGIC Neurologic: grossly normal - PSYCHIATRIC Psych/Mental Status: normal mood/affect, normal thought content, normal thought process, oriented x 3 Progress - PLAN OF CARE/RESULTS Progress/Plan/Lab Results: Vital Signs - 8 hr 05/10/19 14:14 Temperature 97.8 F Pulse Rate 96 H Respiratory Rate 18 Blood Pressure 137/92 O2 Sat by Pulse Oximetry 96 Laboratory Results - last 24 hr 05/10/19 15:08 POC Glucose 174 H Orders Category Date Time Status Cardiac Monitoring DIRECTED Care 05/10/19 14:17 Active Saline Loc NOW Care 05/10/19 14:17 Active CHEST-1 VIEW [RAD] Stat Exams 05/10/19 15:11 Ordered KUB ABDOMEN [RAD] Stat Exams 05/10/19 15:11 Ordered AMYLASE [CHEM] Stat Lab 05/10/19 15:12 Uncollected CBC WITH ELECTRONIC DIFF [HEME] Stat Lab 05/10/19 14:55 Results CK PROFILE [SP CHEM] Stat Lab 05/10/19 14:55 Received COMPREHENSIVE METABOLIC PANEL [CHEM] Stat Lab 05/10/19 14:55 Received LIPASE [CHEM] Stat Lab 05/10/19 15:12 Uncollected PRO B-NATRIURETIC PEPTIDE Stat Lab 05/10/19 14:55 Received PROTIME WITH INR [COAG] Stat Lab 05/10/19 14:55 Received PTT [COAG] Stat Lab 05/10/19 14:55 Received TROPONIN T Stat Lab 05/10/19 14:55 Received URINALYSIS [URINALYSIS] Stat Lab 05/10/19 14:17 Uncollected Abd Pain/Abn Bleeding Stat Oth 05/10/19 14:17 Ordered CP/SOB/Palp >45 yrs of Age Stat Oth 05/10/19 14:17 Ordered EKG [EKG] Stat Ther 05/10/19 14:17 Ordered Result Diagrams: 05/10/19 14:55 05/10/19 14:55 - REASSESSMENT Reassessment #1 Time Reassessed: 16:39 Status: other (DURING MY REEVALUATION; PATIENT DOES ENDOSE PRODUCTIVE COUGH AND DYSPNEA ON EXERTION FOR THE PAST 1 WEEK. I WILL START HIM ON LEVAQUIN FOR PNA ON CXR AND ALSO LASIX FOR CHF EXACERBATION. WILL GIVE K SUPPLEMENT WELL. I WILL CONSULT HOSPITALIST FOR THIS PATIENT.) Reassessment #2 Status: other (SPOKE TO CARMEN AGUSTIN. APPRECIATER HER ASSITANC.E) - EKG 1 Time of EKG reading by physician:: 15:29 EKG Read and Signed by:: Kimo Glaser Rate: 93 Rhythm: A SENSED V PACED [place]: normal QRS: normal GA Interval: normal ST Wave: normal Prior EKG Comparison: no prior EKG - XRAY 1 XRAY Study: Chest, Abdomen ([facility] - [address] [place], [place] [id number] [facility] - [address] [place] [address] Department of Imaging Patient: MARITO DICKENSADM Date: 05/10/19#: [id number] : 1965ADM Status: REG [facility]#: [id number] Age/Sex: 53/MRoom/Bed: Loc: ED Ordering Physician: Kimo Glaser MD Family Physician: Rayo Pagan MD Reason for Procedure: NAUSEA AND ABDOMINAL DISCOMFORT Signed EXAM: KUB ABDOMEN HISTORY: NAUSEA AND ABDOMINAL DISCOMFORT TECHNIQUE: Two views COMPARISON: None. FINDINGS: No bowel obstruction. No organomegaly. No abnormal abdominal calcifications. Mild scoliosis with prominent degenerative bone spurring. IMPRESSION: No acute abnormality. Electronically signed by Iglesia Mcelroy 05/10/2019 3:46 PM 05/10/19 1546 Interpreting Physician: Iglesia Mcelroy MD Dictated Date/Time: 05/10/19 154 cc: Kimo Glaser MD; Rayo Pagan MD) Departure - Departure Date of Disposition Decision: 05/10/19 Time of Disposition Decision: 16:50 DIAGNOSIS: CHF exacerbation, Pneumonia Disposition: LEFT WITHOUT BEING SEEN 07 Certified Medical Emergency: Emergent Condition: Serious Referrals and Follow-Ups: Rayo Pagan MD [Primary Care Provider] - - Critical Care Note This patient required my direct & personal management of CC.: No Attestation - Physician/ OXANA Attestation Patient care was provided by Advanced Practice Provider:: No The physician spent face to face time with patient:: Yes Advanced Practice Provider documentation review:: Supervising physician onsite and consulted in the evaluation and care of this patient. The physician did have a face to face encounter with the patient.
[2019-05-10 15:25] LABS: INR 1.31; PROTIME 16.5 Seconds (11.0-16.0); PTT 28.5 Seconds (22.3-41.8)
[2019-05-10 15:36] LABS: ALB/GLOB RATIO 1.1; ALBUMIN 3.6 g/dL (3.5-5.0); CALCIUM 7.8 mg/dL (8.8-10.2); POTASSIUM 2.6 mmol/L (3.5-5.1); TOTAL BILIRUBIN 2.75 mg/dL (0.20-1.00)
--- NOTE | 2019-05-10 15:42 | Diag Imaging Result Doc PS360 ---
EXAM: CHEST-1 VIEW HISTORY: CHEST CONGESTION TECHNIQUE: Single view COMPARISON: 03/12/2019 FINDINGS: The lungs are well expanded. The heart is enlarged. Left pacemaker. The vessels are not distended. There are right basilar infiltrates. No effusion identified. IMPRESSION: Right basilar pneumonia. Electronically signed by Iglesia Mcelroy 05/10/2019 3:40 PM
--- NOTE | 2019-05-10 15:49 | Diag Imaging Result Doc PS360 ---
EXAM: KUB ABDOMEN HISTORY: NAUSEA AND ABDOMINAL DISCOMFORT TECHNIQUE: Two views COMPARISON: None. FINDINGS: No bowel obstruction. No organomegaly. No abnormal abdominal calcifications. Mild scoliosis with prominent degenerative bone spurring. IMPRESSION: No acute abnormality. Electronically signed by Iglesia Mcelroy 05/10/2019 3:46 PM
[2019-05-10 16:17] LABS: AMYLASE 44 U/L (20-200); LIPASE 33 U/L (13-60)
[2019-05-10] MEDS ORDERED: KLOR-CON POWDER PACKET PO ONE (16:26)
[2019-05-10] MEDS ORDERED: LEVAQUIN 750 MG/D5W 750 MG/150 ML IVPB IV ONE (16:41)
[2019-05-10] MEDS ORDERED: LASIX IV ONE (16:42)
[2019-05-10 17:08] LABS: URINE SOURCE CLEAN CATCH
[2019-05-10 17:17] LABS: BILIRUBIN URINE NEGATIVE (NEGATIVE); BLOOD URINE MODERATE (NEGATIVE); COLOR YELLOW; GLUCOSE URINE NEGATIVE (NEGATIVE); KETONE URINE NEGATIVE (NEGATIVE); LEUKOCYTES URINE NEGATIVE (NEGATIVE); NITRITE URINE NEGATIVE (NEGATIVE); PROTEIN URINE 600 mg/dL (NEGATIVE); SP GRAVITY URINE 1.015; TURBIDITY URINE CLEAR (CLEAR); UR EPITHELIAL CELLS <10 /HPF (<10); URINE BACTERIA NEGATIVE /HPF; URINE WBC <10 /HPF (<10); UROBILINOGEN URINE NORMAL (NORMAL)
[2019-05-10] MEDS ORDERED: ZOFRAN IM ONE (17:24)
--- NOTE | 2019-05-10 19:02 | Diag Imaging Result Doc PS360 ---
EXAM: US ABDOMEN-COMPLETE INDICATION: abd distention, elevated LFTs, jaundice COMPARISON: None. FINDINGS: The gallbladder is packed full of echogenic sludge and stones. No definite gallbladder wall thickening or pericholecystic fluid is identified. The common bile duct is normal in diameter. Sonographic Eduardo's sign was reported to be negative. The liver is normal in echotexture and is mildly prominent measuring up to 19.2 cm in length. Portal venous flow is hepatopetal but pulsatile, which can be associated with right heart failure. The pancreas is obscured. The aorta and IVC are grossly unremarkable. The spleen is mildly prominent measuring up to 14.5 cm in length. The kidneys are grossly unremarkable. IMPRESSION: 1.Gallbladder that is packed full of sludge and stones. No definite wall thickening or pericholecystic fluid is identified. 2.Mild hepatosplenomegaly. 3.Pulsatile portal venous waveform, which can be associated with the right heart failure. Electronically signed by Jama Keith 05/10/2019 7:00 PM
--- NOTE | 2019-05-10 20:23 | HISTORY AND PHYSICAL ---
CHIEF COMPLAINT: Nausea, dizziness. HISTORY OF PRESENT ILLNESS: This is a 53-year-old gentleman with a history of nonischemic cardiomyopathy, chronic systolic heart failure with an ejection fraction of 10% in August 2018 status post pacemaker defibrillator placement, diabetes mellitus type 2. He presents to the emergency room complaining of dizziness with cough and congestion, nausea, vomiting. He states he has a nonproductive cough. He did state that he has not taken his medications in the last 4 to 5 days, maybe longer because he just did not feel like it. He has not had much to eat because he did feel good. He said "when I take Phenergan I sleep for a long time and I took 1." He did state that he felt that he has had some sinus infection as he has had increased postnasal drip during these days. PAST MEDICAL HISTORY: Systolic heart failure with an ejection fraction of 10% July 2018, diabetes mellitus type 2, hypertension, chronic pain, coronary artery disease, hyperlipidemia, nonischemic cardiomyopathy, diabetic neuropathy with persistent left foot diabetic ulcer followed by [facility]. PAST SURGICAL HISTORY: Pacemaker defibrillator placement, left metatarsal amputation, appendectomy. FAMILY HISTORY: Positive for coronary artery disease in his father, lung cancer and diabetes in his siblings. SOCIAL HISTORY: He continues to smoke. He denies any alcohol or illicit drug use. ALLERGIES: Sulfa. HOME MEDICATIONS: A list will be obtained by the nursing staff and once verified will review and restart as appropriate. REVIEW OF SYSTEMS: Discussed with the patient with pertinent positives stated in the HPI. He denied any syncope, any chest pain or palpitations, any vomiting, diarrhea, black or bloody vomitus or stools, any hematuria, dysuria, frequency, urgency. PHYSICAL EXAMINATION: GENERAL: This is a 53-year-old gentleman who is sitting up in the bed in no distress. VITAL SIGNS: Blood pressure is 137/90 with heart rate of 96, respirations 18, temperature is 97.8 degrees oral with room air saturations 96%. HEENT: Pupils are equal, round, react to light. EOMs are intact. Sclerae are jaundiced. Head is normocephalic, atraumatic. Mucous membranes are moist. NECK: Supple with trachea midline. CARDIOVASCULAR: Regular rate and rhythm. S1 and S2 are appreciated. He has bilateral lower extremity edema to about midthigh with signs of venous stasis. Calves are nontender to palpation. PULMONARY: Breath sounds are clear with no increased work of breathing noted. Chest rises and falls symmetric respiration. GASTROINTESTINAL: Abdomen large, slightly distended, soft, nontender with bowel sounds in all 4 quadrants : No CVA or suprapubic tenderness. SKIN: Warm and dry. NEUROLOGIC: He is alert and oriented. LABS: WBC is 10.1 with hemoglobin 15.5, hematocrit 49.5 and platelets 151,000. Sodium 130, potassium 2.6, BUN 76, creatinine 2 with a glucose of 188. Total bilirubin is 2.75 with AST 40, ALT 24, alkaline phosphatase 152. ProBNP is 9343 with a troponin of 0.082. Chest x-ray revealed right basilar pneumonia. Abdominal x-ray revealed no acute abnormality. ASSESSMENT AND PLAN: 1. Right lower lobe pneumonia. I ordered blood culture stat. Antibiotic coverage of Rocephin and Zithromax. Start incentive spirometer q.4 hours. 2. Acute on chronic systolic heart failure. Will identify his home medications and continue these, get strict I and O, daily weights. 3. Persistent ulcer to left foot. Consult Wound Care. 4. Diabetes mellitus type 2. Pattern blood glucose with sliding scale insulin. We will start his Lantus in the morning. 5. Diabetic neuropathy. We will continue his home medications. 6. Chronic kidney disease stage 3. We will monitor his daily labs and renal dose medications as appropriate. 7. Hypokalemia. Will replete his potassium, check a magnesium and treat as appropriate. 8. Elevated liver function tests. We will obtain an abdominal ultrasound. 9. Will repeat a CBC, CMP, magnesium in the morning. Will check a TSH, will trend cardiac profile and troponin, repeat a chest x-ray in the morning. 10. Plan was discussed with Dr. Blank. Further treatments pending hospital course. Dictated by MARIMAR Ward for Rene Blank MD cc: MARIMAR Ward MD
--- NOTE | 2019-05-10 20:24 | HISTORY AND PHYSICAL ---
ADDENDUM: I have seen and examined Mr. Ace today. He came in mainly because of nausea and chest congestion. He also complains of some dizziness. According to Mr. Ace, he also has not had any bowel movement for the past 8 days. Mr. Pineda has a history of severe congestive heart congestive heart failure, systolic dysfunction with ejection fraction of 10 to 15 percent. He follows up with Dr. Gianni Rosenberg. Upon presenting, he was evaluated. Initial vitals revealed blood pressure of 137/92. CURRENT PHYSICAL EXAM: Neck: Revealed that his neck is supple with positive JVD. Chest: Air entry was bilaterally reduced. There are some crackles in posterior lung patel. Cardiovascular: Regular rate and rhythm. Abdomen: Soft. Bowel sounds are remarkably reduced. Extremities: About 2+ pedal edema. The left lower extremity is in an orthopedic boot. CURRENT LABORATORY DATA: Reveals normal white cell count. Sodium of 130, potassium is 2.6, chloride is 81, bicarb is 26. The patient's creatinine is 2.0, which is fairly normal for his baseline. His pro-B is up to 9345. The last 1 done here in February was just 3279. IMAGING STUDIES: A KUB was unremarkable. A chest x-ray shows right basilar pneumonia. EKG is shows a ventricular paced rhythm with occasional PVC. Echocardiogram from August of this year shows ejection fraction of approximately 10% in the setting of severe global hypokinesis. ASSESSMENT: 1. Mild acute on chronic systolic heart failure, ejection fraction of 10 to 15 percent. 2. Dyspnea secondary to a combination of pulmonary edema and pneumonia. 3. Right lower lobe pneumonia. The patient will be started on IV antibiotics. 4. Chronic kidney disease stage IV. Noted. 5. Electrolyte abnormality including hypokalemia. Will be replaced. 6. Constipation. Patient will be started on bowel regimen. Please refer to the details of the history and physical which has been dictated in the chart by the PIPE LINE GAUGER. cc: Rene Blank MD [facility] MED[facility] CENTERJami
[2019-05-10] MEDS ORDERED: LASIX IV SCH (21:00)
[2019-05-10] MEDS ORDERED: BUMEX PO SCH (21:00)
[2019-05-10] MEDS: COMPAZINE IV PRN (21:49)
[2019-05-10] MEDS: POTASSIUM CHLORIDE 20 MEQ/SWI 20 MEQ/100 ML IVPB IV SCH (21:54)
[2019-05-10] MEDS: ROCEPHIN 1 GM in NS 50 ML IV SCH (21:56)
[2019-05-10] MEDS: COREG PO SCH (22:19)
[2019-05-10] MEDS: NORCO-10 PO SCH (22:19)
[2019-05-10] MEDS: LACTULOSE PO SCH (22:20)
[2019-05-10] MEDS: HUMALOG SUBQ SCH ×2 (22:20→22:25)
[2019-05-11] MEDS: ZITHROMAX 500 MG/NS 500 MG/250 ML IVPB IV SCH ×2 (00:15→20:43)
[2019-05-11] MEDS: NORCO-10 PO SCH ×4 (02:55→20:33)
[2019-05-11] MEDS: COMPAZINE IV PRN (02:56)
[2019-05-11] MEDS ORDERED: KLOR-CON PO ONE ×2 (05:41→10:09)
[2019-05-11] MEDS ORDERED: INSULIN PEN NEEDLES ONE (06:25)
[2019-05-11] MEDS: HUMALOG SUBQ SCH ×4 (06:54→20:34)
[2019-05-11 07:13] LABS: BASO# 0.02 X1000 (0.0-0.2); BASO% 0.2 % (0.0-0.8); EOS# 0.05 X1000 (0.0-0.7); EOS% 0.6 % (0.0-10.0); HEMATOCRIT 47.9 % (42.0-52.0); HEMOGLOBIN 15.3 g/dL (14.0-18.0); LYMPH# 0.66 X1000 (1.2-3.4); LYMPH% 7.9 % (20.5-51.1); MCH 28.1 PG (27-31); MCHC 31.9 g/dL (33-37); MCV 87.9 FL (81-99); MONO# 0.47 X1000 (0.11-0.59); MONO% 5.6 % (1.7-9.3); MPV 10.7 FL (7.4-10.4); NEUT# 7.19 X1000 (1.4-6.5); NEUT% 85.7 % (42.2-75.2); PLT 133 X1000 (130-400); RBC 5.45 XMIL (4.7-6.1); RDW 18.5 % (11.5-14.5); WBC 8.39 X1000 (4.8-10.8)
--- NOTE | 2019-05-11 07:25 | Diag Imaging Result Doc PS360 ---
EXAM: CHEST-PORTABLE 05/11/2019 HISTORY: dyspnea TECHNIQUE: AP portable at 0528 COMMENT: There is alveolar opacity in the right lung which has worsened somewhat particularly in the right upper lobe since 05/10/2019. The left lung remains clear. The heart size is slightly enlarged. IMPRESSION: Right-sided pneumonia. Electronically signed by Joel Villela 05/11/2019 7:23 AM
[2019-05-11 07:36] LABS: LYMPHS 8 % (21-51); MONO 4 % (1-9); SEGS 88 % (42-75)
[2019-05-11] MEDS: POTASSIUM CHLORIDE 20 MEQ/SWI 20 MEQ/100 ML IVPB IV SCH ×3 (07:47→12:09)
[2019-05-11 07:52] LABS: ALBUMIN 2.8 g/dL (3.5-5.0)
[2019-05-11] MEDS: NOVOLOG MIX 70/30 SUBQ SCH ×3 (08:26→17:34)
--- NOTE | 2019-05-11 08:40 | EKG Report ---
Test Performed on : 05/10/2019 5:22:41 PM Test Reason : ST Blood Pressure : / mmHG Vent. Rate : 115 BPM Atrial Rate : 107 BPM P-R Int : 000 ms QRS Dur : 134 ms QT Int : 388 ms P-R-T Axes : 000 -59 100 degrees QTc Int : 536 ms Wide QRS rhythm. Left axis deviation Left bundle branch block Abnormal ECG When compared with ECG of 10-MAY-2019 17:09, (Unconfirmed) Wide QRS rhythm. has replaced Electronic ventricular pacemaker Unconfirmed Result
[2019-05-11 08:44] LABS: ALB/GLOB RATIO 0.7; CALCIUM 8.4 mg/dL (8.8-10.2); CREATININE 2.2 mg/dL (0.7-1.2); MAGNESIUM 2.4 mg/dL (1.5-2.7); POTASSIUM 2.8 mmol/L (3.5-5.1); TOTAL BILIRUBIN 2.73 mg/dL (0.20-1.00); TOTAL PROTEIN 7.1 g/dL (6.3-8.3)
[2019-05-11] MEDS ORDERED: ZAROXOLYN PO SCH (09:00)
[2019-05-11] MEDS: ALDACTONE PO SCH (10:24)
[2019-05-11] MEDS: COREG PO SCH ×2 (10:24→20:33)
[2019-05-11] MEDS: NEURONTIN PO SCH ×3 (10:24→17:33)
[2019-05-11] MEDS: LACTULOSE PO SCH ×2 (10:27→20:30)
[2019-05-11] MEDS: MIRALAX PO SCH (10:30)
[2019-05-11] MEDS: LANTUS INSULIN SUBQ SCH (10:30)
[2019-05-11] MEDS: LASIX IV SCH ×2 (10:35→20:31)
--- NOTE | 2019-05-11 10:37 | PROGRESS NOTE ---
DATE: 05/11/2019 SUBJECTIVE: This morning Mr. Ace is referred to be doing a lot better. He has had about 3 bowel movements yesterday according to him, which were very explosive. He still remains slightly nauseated this morning. OBJECTIVE: Vital signs: Blood pressure is 122/73, pulse 84, respirations 16, temperature 97.4 degrees. General: Mr. Ace is a 53-year-old gentleman. He is in bed in no distress. Mucosa is pink and moist. Anicteric. Acyanotic. Neck is supple. No JVD. Chest: Air entry is bilaterally reduced. There is diffuse crepitations in both lung patel. Cardiovascular: Regular rate and rhythm. No murmurs, no rubs, no gallops. Abdomen: Soft, nontender. Bowel sounds present, but hypoactive. Extremities: Trace pedal edema. There is a transmetatarsal amputation of the left foot. There is a small ulceration on the foot bottom as well on the left side. LABORATORY DATA: The patient's CBC is within normal range. Chemistry shows a sodium of 135, potassium is 2.8, creatinine is 2.2 which is seems to be patient's baseline. Ultrasound of the abdomen yesterday did show gallbladder which is packed full of sludge and stones, but there was not any thickening or pericholecystic fluid. There is mild hepatosplenomegaly and pulsatile portal venous waveform which could be associated with right heart failure. ASSESSMENT: 1. Nausea and vomiting on presentation, presumably due to constipation. The patient has had 3 bowel movements this morning. We are going to continue addressing the bowel regimen. However, it is also very possible that the nausea could be related to the gallbladder disease. Will get Surgery to evaluate him. Of note, he does not seems to have acute inflammation of the gallbladder on physical exams nor on image. 2. Cholelithiasis. The patient has been found on ultrasound to have packed gallbladder with sludge and stones. Unsure if this is related to some of his upper GI symptoms. Surgery will evaluate him. 3. Congestive heart failure, ejection fraction of 10% to 15% on recent echo. The patient continues to be on his home medications. 4. Dyspnea on presentation secondary to combination of pulmonary edema and pneumonia. The patient refers to be doing a lot better. 5. Right lower lobe pneumonia. Patient is on IV antibiotics. A chest x-ray this morning seems to suggest some worsening, however, clinically patient is improving. White cell count is within normal range. 6. Chronic kidney disease stage 4 noted. The patient continues to make adequate urine. Acid- base within normal range. Will address his electrolytes as well. 7. Constipation, improving with bowel regimen. 8. Electrolyte abnormality including hypokalemia. Will continue to replace this. 9. Small wound under the left transmetatarsal stump. The patient will be evaluated by Wound Care. PLAN: In general, I think Mr. Ace is doing a lot better. He said his shortness of breath has significantly improved. Nauseation has also improved this morning. He has had about 3 bowel movements overnight. We are going to continue with the bowel prep. He is pending evaluation by Surgery due to the gallbladder findings. Continue with his home medications. Will also continue replacing his electrolyte abnormalities. cc: Rene Blank MD
--- NOTE | 2019-05-11 12:54 | CONSULTATION ---
DATE OF CONSULTATION: 05/11/2019 HISTORY OF PRESENT ILLNESS: Mr. Rolo Ace is a 53-year-old, white male, diabetic, with dramatic congestive heart failure, with an ejection fraction of only 10% to 15%. He is admitted with nausea, and it was discovered that he has gallstones, and we were asked to see him. PAST MEDICAL/SURGICAL HISTORY: Congestive heart failure, defibrillator, hypertension, hyperlipidemia, chronic venous insufficiency, left foot transmetatarsal amputation, left foot ulcer laterally, chronic kidney disease, diabetes, appendectomy. MEDICATIONS: Insulin, Neurontin, Lantus, Coreg, Covel 10, MiraLAX, bumetanide, metolazone, Aldactone, and Demadex. ALLERGIES: Sulfa. SOCIAL HISTORY: Family was at his bedside. He is disabled. He is not smoking. FAMILY HISTORY: Coronary artery disease, lung cancer. REVIEW OF SYSTEMS: He has shortness of breath. Otherwise, a 14-point review of systems was performed and was essentially negative, except for the history of present illness. PHYSICAL EXAMINATION: Vital Signs: His temperature is 97.8 degrees, pulse rate 96, blood pressure 137/92, O2 saturation 96%. General: Mr. Rolo Ace is a middle-aged, white male. He is overweight. He has earrings in. He has no evidence of jaundice on physical exam. HEENT: No oral lesions. Neck: No cervical or supraclavicular lymphadenopathy. He does have some jugular venous distention. Heart: Regular rate. Lungs: Essentially clear. He had no obvious work of breathing. Abdomen: Soft, nontender, without palpable mass. No costovertebral tenderness. Rectal: Not performed. Extremities: He does have palpable femoral pulses. He does have chronic edema and skin changes involving both lower extremities. He has a well-healed left foot transmetatarsal amputation. He also has a chronic diabetic ulcer, lateral aspect of his left foot, with surrounding callus. Neurologic: He has no neurologic deficits. IMAGING: Ultrasound shows gallbladder packed full of stones, but no evidence of infection. LABORATORY DATA: His BUN and creatinine are 77 and 2.2. His liver function tests are slightly elevated, which could be related to his congestive heart failure. His white blood cell count is normal. IMPRESSION: Middle-aged, overweight, white male with diabetes, who has significant congestive heart failure with an ejection fraction of 10% to 15%. He is admitted with symptoms of nausea. Ultrasound documents a gallbladder full of stones. PLAN: I think his cardiac risk is too high for laparoscopic cholecystectomy. We ought to treat any symptoms conservatively with medication. There was no evidence of infection involving his gallbladder. cc: Scarlett Montiel MD
[2019-05-11] MEDS ORDERED: NS 0 ML ONE (14:53)
[2019-05-11] MEDS: ROCEPHIN 1 GM in NS 50 ML IV SCH ×2 (20:33→23:01)
[2019-05-12] MEDS: COMPAZINE IV PRN ×2 (00:07→08:26)
[2019-05-12] MEDS: NORCO-10 PO SCH ×4 (02:26→19:53)
[2019-05-12] MEDS: HUMALOG SUBQ SCH ×4 (06:03→21:27)
[2019-05-12 07:24] LABS: BASO# 0.02 X1000 (0.0-0.2); BASO% 0.3 % (0.0-0.8); EOS# 0.11 X1000 (0.0-0.7); EOS% 1.4 % (0.0-10.0); HEMATOCRIT 48.9 % (42.0-52.0); HEMOGLOBIN 15.3 g/dL (14.0-18.0); LYMPH# 1.04 X1000 (1.2-3.4); LYMPH% 13.4 % (20.5-51.1); MCH 27.8 PG (27-31); MCHC 31.3 g/dL (33-37); MCV 88.9 FL (81-99); MONO# 0.49 X1000 (0.11-0.59); MONO% 6.3 % (1.7-9.3); MPV 10.4 FL (7.4-10.4); NEUT# 6.09 X1000 (1.4-6.5); NEUT% 78.6 % (42.2-75.2); PLT 148 X1000 (130-400); RDW 18.1 % (11.5-14.5); WBC 7.75 X1000 (4.8-10.8)
[2019-05-12 08:07] LABS: ALB/GLOB RATIO 0.8; CALCIUM 7.9 mg/dL (8.8-10.2); CREATININE 2.5 mg/dL (0.7-1.2); TOTAL BILIRUBIN 1.78 mg/dL (0.20-1.00); TOTAL PROTEIN 6.7 g/dL (6.3-8.3)
[2019-05-12] MEDS: LACTULOSE PO SCH ×3 (08:25→21:33)
[2019-05-12] MEDS: NEURONTIN PO SCH ×3 (08:26→16:49)
[2019-05-12] MEDS: NOVOLOG MIX 70/30 SUBQ SCH ×3 (08:26→16:50)
[2019-05-12] MEDS: LASIX IV SCH (08:26)
[2019-05-12] MEDS: ALDACTONE PO SCH (08:26)
[2019-05-12] MEDS: MIRALAX PO SCH (08:26)
[2019-05-12] MEDS: COREG PO SCH ×2 (08:26→21:29)
[2019-05-12] MEDS: LANTUS INSULIN SUBQ SCH (08:27)
[2019-05-12] MEDS ORDERED: INSULIN PEN NEEDLES ONE (12:07)
[2019-05-12] MEDS ORDERED: ALBUMIN 25% IV ONE (13:03)
[2019-05-12] MEDS ORDERED: KLOR-CON PO ONE (13:04)
[2019-05-12] MEDS ORDERED: DEMADEX PO SCH (13:15)
--- NOTE | 2019-05-12 13:37 | PROGRESS NOTE ---
DATE: 05/12/2019 SUBJECTIVE: This morning Mr. Ace refers to be doing fairly okay. He has had episode of nauseation. OBJECTIVE: Vital Signs: His current vitals blood pressure 147/90, pulse of 82, respirations 20, and temperature 97.8 degrees. General: Mr. Ace is a 53-year-old gentleman. He was in bed in no distress. Mucosa is pink and moist. Anicteric. Acyanotic. Neck: Supple. Chest: Good air entry bilaterally. There was some distant inspiratory crackles. Cardiovascular: Regular rate and rhythm. No murmurs. Abdomen: Soft. Distended, but nontender. Extremities: Trace pedal edema. There is a transmetatarsal amputation of the left foot with mild ulceration on the bottom. Neurologic: Patient was awake, alert, and oriented. LABORATORY DATA: CBC is completely normal. Chemistry shows low potassium, low sodium, low chloride. BUN is elevated, and creatinine is also slightly elevated. ASSESSMENT AND PLAN: The patient was evaluated by Surgery yesterday. ASSESSMENT: 1. Nausea and vomiting on presentation seems to be improving. 2. Constipation. We will continue with bowel regimen. 3. Cholelithiasis without evidence of cholecystitis. Patient has been evaluated by Surgery. 4. Congestive heart failure exacerbation with ejection fraction of 10% to 15% on recent echo. The patient has been started on home medications as well as diuretics. 5. Dyspnea on presentation secondary to combination of pulmonary edema and pneumonia. 6. Right lower lobe infiltrate concerning for pneumonia. Patient is on antimicrobial therapy. We are going to repeat a chest x-ray tomorrow. 7. CKD stage 4 noted. 8. Electrolyte abnormality including hypokalemia hyponatremia, and hypochloremia most likely all related to diuretic side effects. We have discontinued the IV diuretic today. 9. Smal wound under the left transmetatarsal stump. Wound Care has been consulted. In general, I think Mr. Ace is doing okay. He still remains slightly nauseated. I think part of it could be because of the gallbladder disease, however it could be a combination of gallbladder disease and constipation. We are going to continue addressing bowel regimen. The patient has been evaluated by Surgery. At this point because of his very poor EF, they plan not to intervene at this point. Mr. Ace also has low albumin, which I think could be contributing to the fact that his BUN and creatinine is going up on the diuretic, so we are going to stop the diuretic, and give him a dose of albumin today. cc: Rene Blank MD MTDD
[2019-05-12] MEDS: ROCEPHIN 1 GM in NS 50 ML IV SCH (19:53)
[2019-05-12] MEDS: ZITHROMAX 500 MG/NS 500 MG/250 ML IVPB IV SCH (21:27)
[2019-05-13] MEDS: COMPAZINE IV PRN (01:32)
[2019-05-13] MEDS: NORCO-10 PO SCH ×4 (01:32→20:54)
[2019-05-13] MEDS: HUMALOG SUBQ SCH ×3 (06:04→17:41)
[2019-05-13 07:35] LABS: HEMATOCRIT 46.5 % (42.0-52.0); HEMOGLOBIN 14.3 g/dL (14.0-18.0); MCH 27.6 PG (27-31); MCHC 30.8 g/dL (33-37); MCV 89.6 FL (81-99); MPV 10.9 FL (7.4-10.4); RBC 5.19 XMIL (4.7-6.1); RDW 18.2 % (11.5-14.5); WBC 7.31 X1000 (4.8-10.8)
--- NOTE | 2019-05-13 08:21 | Diag Imaging Result Doc PS360 ---
EXAM: CHEST-2 VIEWS HISTORY: hypoxia TECHNIQUE: Two views COMPARISON: 05/11/2019 FINDINGS: The lungs are well expanded. The heart is enlarged. There is a left-sided pacemaker. The vessels are not distended. There are no infiltrates. No pleural effusions. IMPRESSION: Resolution of the right-sided pneumonia. Cardiomegaly remains. Electronically signed by Iglesia Mcelroy 05/13/2019 8:19 AM
[2019-05-13 08:22] LABS: ALBUMIN 3.2 g/dL (3.5-5.0); CALCIUM 8.3 mg/dL (8.8-10.2); CREATININE 2.9 mg/dL (0.7-1.2); MAGNESIUM 2.6 mg/dL (1.5-2.7); PHOSPHORUS 3.4 mg/dL (2.7-4.5); POTASSIUM 3.3 mmol/L (3.5-5.1)
--- NOTE | 2019-05-13 08:27 | Diag Imaging Result Doc PS360 ---
EXAM: KUB ABDOMEN INDICATION: SBO TECHNIQUE: 2 views COMPARISON: 05/10/2019 FINDINGS: There is minimal patchy small bowel gas that is essentially stable. It is nonspecific. It is not necessarily indicative of obstruction. Consider mild ileus. The abdomen is grossly stable, otherwise. IMPRESSION: Stable mild patchy small bowel gas as described. Electronically signed by Jama Keith 05/13/2019 8:25 AM
[2019-05-13] MEDS: MIRALAX PO SCH (08:56)
[2019-05-13] MEDS: NEURONTIN PO SCH ×3 (08:57→17:42)
[2019-05-13] MEDS: COREG PO SCH ×2 (08:57→20:52)
[2019-05-13] MEDS: ALDACTONE PO SCH (08:57)
[2019-05-13] MEDS: LANTUS INSULIN SUBQ SCH (08:58)
[2019-05-13] MEDS: NOVOLOG MIX 70/30 SUBQ SCH ×3 (08:58→17:41)
[2019-05-13] MEDS: LACTULOSE PO SCH (09:02)
[2019-05-13] MEDS ORDERED: BUMEX IV ONE (10:12)
--- NOTE | 2019-05-13 11:28 | PROGRESS NOTE ---
DATE: 05/13/2019 SUBJECTIVE: This morning, Mr. Ace refers to be doing a lot better. Has not had any vomiting. He felt slightly nauseated, but he has been able to tolerate his breakfast. He said he had a small bowel movement early on today. OBJECTIVE: Vital Signs: Blood pressure is 153/99, pulse 84, respirations 19, temperature is 97.5 degrees, the patient was saturating 100%. General: Mr. Ace is a 53-year-old gentleman. He is in bed. No distress. Mucosa is pink and moist. Anicteric. Acyanotic. Neck: Supple. Chest: Good air entry bilaterally. There were some crepitations in the posterior lung patel. Cardiovascular: Regular rate and rhythm. GI: Abdomen is soft and distended. Bowel sounds are present, but hypoactive. Extremities: Trace of pedal edema. There are also chronic changes of the lower extremities from stasis dermatopathy. The patient has a left transmetatarsal amputation with a clean stump. There is a mild ulceration on the bottom. Neurological: Intact. LABORATORY DATA: CBC is within normal range. Chemistry is also reviewed. Potassium is 3.2, creatinine is 2.9. ASSESSMENT: 1. Nausea and vomiting on presentation, gradually improved. 2. Constipation. The patient continues to be on bowel regimen. 3. Cholelithiasis without evidence of cholecystitis. The patient has been evaluated by Surgery. Recommendation to treat medically for now. 4. Fluid overload secondary to acute on chronic congestive heart failure, ejection fraction of 10% to 15% on recent echocardiogram. The patient is on his home medications. We will start him back on the torsemide. According to Mr. Ace, he is immune to Lasix. 5. Right lower lobe infiltrate concerning for pneumonia versus atelectasis. The patient is on antimicrobial. A chest x-ray this morning shows resolution of the right- sided pneumonia. Cardiomegaly remains. 6. Chronic kidney disease stage IV. Creatinine has been creeping up, but I think it is within his baseline. 7. Electrolyte abnormality, including hypokalemia. Will replace. We are going to start Mr. Ace back on his home diuretic therapy. Will replace the electrolyte abnormality today, give him 1 dose of intravenous Bumex, and re-evaluate him in the morning. cc: Rene Blank MD [facility]ITALJami
[2019-05-13] MEDS: ROCEPHIN 1 GM in NS 50 ML IV SCH (20:52)
[2019-05-13] MEDS: DEMADEX PO SCH (20:52)
[2019-05-13] MEDS: ZITHROMAX 500 MG/NS 500 MG/250 ML IVPB IV SCH (20:52)
[2019-05-14] MEDS: NORCO-10 PO SCH ×2 (03:02→08:32)
[2019-05-14] MEDS: HUMALOG SUBQ SCH ×3 (06:16→11:40)
[2019-05-14] MEDS ORDERED: INSULIN PEN NEEDLES ONE (07:25)
[2019-05-14 07:46] LABS: ALBUMIN 3.3 g/dL (3.5-5.0); CALCIUM 8.3 mg/dL (8.8-10.2); CREATININE 2.8 mg/dL (0.7-1.2); PHOSPHORUS 4.2 mg/dL (2.7-4.5); POTASSIUM 3.8 mmol/L (3.5-5.1)
[2019-05-14] MEDS: ALDACTONE PO SCH (08:32)
[2019-05-14] MEDS: NEURONTIN PO SCH (08:32)
[2019-05-14] MEDS: COREG PO SCH (08:32)
[2019-05-14] MEDS: DEMADEX PO SCH (08:32)
[2019-05-14] MEDS: MIRALAX PO SCH (08:32)
[2019-05-14] MEDS: NOVOLOG MIX 70/30 SUBQ SCH ×2 (08:33→11:38)
[2019-05-14] MEDS: LANTUS INSULIN SUBQ SCH (08:33)
[2019-05-14 11:25] VITALS: BP 140/97
--- NOTE | 2019-05-14 21:52 | DISCHARGE SUMMARY ---
ADMISSION DATE: 05/10/2019 DISCHARGE DATE: 05/14/2019 DISPOSITION: Home. FOLLOWUP: Will be with the patient's PCP Rayo Villafuerte. Dr. Montiel. CONSULTATION: Surgery was consulted. Patient was seen by Dr. Montiel. INVASIVE PROCEDURES: None. IMAGING STUDIES OF SIGNIFICANCE: A KUB initially showed no abnormality, mild scoliosis. A chest x-ray which was done on 05/10 showed right basilar pneumonia. An abdomen ultrasound which was done on 05/10/2019 showed gallbladder that is packed full of sludge and stones, mild hepatosplenomegaly, pulsatile portal vein wave. A repeat chest x-ray on 05/11 showed a right side pneumonia. Abdomen showed a stable mild patchy small-bowel gas. A repeat chest x-ray yesterday showed resolution of a right side pneumonia, cardiomegaly remains. ADMISSION DIAGNOSIS: 1. Right lower lobe pneumonia. 2. Acute on chronic systolic heart failure. 3. Diabetes mellitus. 4. Diabetic neuropathy. DIAGNOSIS AT THE TIME OF DISCHARGE: 1. Nausea and vomiting on presentation presumably combination of constipation and dyspepsia from gallbladder disease. 2. Constipation improved. 3. Cholelithiasis without evidence of cholecystitis, patient was evaluated by surgery. 4. Fluid overload on presentation secondary to acute on chronic congestive heart failure. Patient has ejection fraction of 10% to 15% on recent echocardiogram. 5. Right lower lobe infiltrate concerning for pneumonia versus atelectasis. Repeat x-rays on yesterday reveal resolution of the right lower lobe pneumonia, patient was on antibiotics. 6. Chronic kidney disease stage 4. 7. Mild electrolyte abnormality including hypokalemia improved. DISCHARGE MEDICATIONS: 1. Insulin glargine 20 units subcu daily. 2. Gabapentin 200 mg 3 times per day. 3. Carvedilol 3.125 b.i.d. 4. [place]. 1. MiraLAX 17 g p.o. daily. 2. Spironolactone 25 mg p.o. daily. 3. Metolazone 10 mg p.o. every other day. 4. Torsemide 20 mg p.o. b.i.d. 5. Lactulose 30 mL p.o. b.i.d. Levaquin 500 mg for additional 5 days. PRESENTING COMPLAINT: Nausea and some dizziness. HISTORY OF PRESENTING COMPLAINT: Mr. Ace is a 53-year-old gentleman who is known to have a severe nonischemic cardiomyopathy, chronic heart failure, ejection fraction of 10%, status post D fibrillation, he is also diabetic, came to emergency department because of nausea and vomiting, dizziness and some mild shortness of breath. He was also found to be in fluid overload. He was admitted to medical floor for further medical management. HOSPITAL COURSE: Mr. Ace was admitted to the medical floor initially started on IV diuretic and he continued to diurese very well. His nausea was also symptomatically managed. Ultrasound of the abdomen did make mention of gallstones without acute cholecystitis. Patient was evaluated by Dr. Montiel, the surgeon who recommended to treat this more medically until he is probably more stable on outpatient base because of the fact that he is extremely cardiopathic with an ejection fraction of 10 to 15 percent. Mr. Ace was also remarkably constipated. He was treated with bowel regimen which he responded well. This morning he refers to feel a lot better. He was given 1 shot of Bumex yesterday and he did diurese well. He is currently negative balance of 365. His pro B has decreased from 9343 to 6590. His chest x-ray yesterday shows remarkable improvement. We think he is fairly stable to be discharged. He has been advised to follow up with the heart failure clinic and he will also be followed up with [facility]. Mr. Ace will also follow up with Dr. Montiel. All the discharge instructions have been discussed with him and he voiced understanding. TIME SPENT: 35 minutes. Please cc copy of the discharge summary to #1 Dr. Ej Cade[address] 1. Dr. Montiel. cc: Scarlett Montiel MD
== END 2019-05-14 11:46 | disposition home or self-care (01) | DRG 291 ==
LOC: ED 14:01 → 3N 19:43
PROVIDERS: ATTEND Internal Medicine

== ENCOUNTER 2019-08-02 15:09 | Inpatient (IN) ==
[2019-08-02] MEDS ORDERED: BUMEX IV ONE ×2 (15:21→16:15)
[2019-08-02] MEDS ORDERED: DUONEB (A & A) INH ONE (15:24)
--- NOTE | 2019-08-02 15:41 | Diag Imaging Result Doc PS360 ---
EXAM: CHEST-PORTABLE HISTORY: dyspnea TECHNIQUE: Single view COMPARISON: 05/13/2019 FINDINGS: Poor inspiratory effort. The heart is not enlarged. Mild vascular distention. There is a left-sided pacemaker. No pleural effusions identified. No consolidation. IMPRESSION: Cardiomegaly with mild pulmonary edema Electronically signed by Iglesia Mcelroy 08/02/2019 3:39 PM
[2019-08-02 16:16] LABS: BASO# 0.05 X1000 (0.0-0.2); BASO% 0.5 % (0.0-0.8); EOS# 0.06 X1000 (0.0-0.7); EOS% 0.6 % (0.0-10.0); HEMATOCRIT 52.4 % (42.0-52.0); HEMOGLOBIN 16.6 g/dL (14.0-18.0); IMM GRAN# 0.02 X1000 (0.0-0.04); IMM GRAN% 0.2 % (0.0-0.5); LYMPH# 1.39 X1000 (1.2-3.4); MCH 28.7 PG (27-31); MCHC 31.7 g/dL (33-37); MCV 90.7 FL (81-99); MONO% 6.5 % (1.7-9.3); MPV 11.3 FL (7.4-10.4); NEUT# 7.15 X1000 (1.4-6.5); NEUT% 77.2 % (42.2-75.2); PLT 228 X1000 (130-400); RBC 5.78 XMIL (4.7-6.1); RDW 16.9 % (11.5-14.5); WBC 9.27 X1000 (4.8-10.8)
[2019-08-02 16:30] LABS: INR 1.21; PROTIME 15.5 Seconds (11.0-16.0)
[2019-08-02 16:31] LABS: PTT 26.6 Seconds (22.3-41.8)
[2019-08-02 16:56] LABS: ALB/GLOB RATIO 1.1; ALBUMIN 3.7 g/dL (3.5-5.0); CALCIUM 9.2 mg/dL (8.8-10.2); CREATININE 2.3 mg/dL (0.7-1.2); POTASSIUM 3.8 mmol/L (3.5-5.1); TOTAL BILIRUBIN 1.34 mg/dL (0.20-1.00)
--- NOTE | 2019-08-02 18:32 | EKG Report ---
Test Performed on : 08/02/2019 5:27:37 PM Test Reason : dyspnea Blood Pressure : / mmHG Vent. Rate : 083 BPM Atrial Rate : 083 BPM P-R Int : 164 ms QRS Dur : 164 ms QT Int : 456 ms P-R-T Axes : 051 264 057 degrees QTc Int : 535 ms Atrial-sensed ventricular-paced rhythm Abnormal ECG When compared with ECG of 10-MAY-2019 17:22, Electronic ventricular pacemaker has replaced Wide QRS rhythm. Unconfirmed Result
[2019-08-02] MEDS ORDERED: KLOR-CON PO ONE (18:36)
[2019-08-02] MEDS ORDERED: DIURIL IV ONE (19:34)
[2019-08-02] MEDS ORDERED: ZAROXOLYN PO ONE (19:36)
--- NOTE | 2019-08-02 19:42 | PROVIDER DOCUMENTATION ---
This chart was entered by Nisha Grimaldo Scribe, acting as scribe for Douglas Garces MD. HPI-Respiratory General - General Stated Complaint: difficulty breathing Time Seen by Provider: 08/02/19 15:14 Source: patient Allergies/Adverse Reactions: Patient Allergies Allergy/AdvReac Type Severity Reaction Status Date / Time Sulfa (Sulfonamide AdvReac Intermediate NAUSEA/VOMI Verified 05/10/19 15:05 Antibiotics) TING Home Medications: Home Medication List Medication Instructions Recorded Confirmed Last Taken Type Insulin Aspart Prot/Insuln Asp 5 unit SQ TID 09/20/16 05/10/19 05/09/19 History [Novolog Mix 70-30 Vial] Gabapentin [Neurontin] 2 tab PO TID 05/26/18 05/10/19 05/09/19 History Insulin Glargine [Lantus] 22 unit SUBQ QAM 05/26/18 05/10/19 05/09/19 History Carvedilol [Coreg] 3.125 mg PO BID #120 tab 09/12/18 05/10/19 05/09/19 Rx Hydrocodone/APAP 10 mg/325 mg 1 each PO Q6H tablet 09/12/18 05/10/19 05/08/19 Rx [[place]-10] Polyethylene Glycol 3350 [Miralax] 17 gm PO DAILY powder, packet 09/12/18 05/10/19 05/09/19 Rx Metolazone 10 mg PO EVERY OTHER DAY #30 tab 03/13/19 05/10/19 05/09/19 Rx Spironolactone [Aldactone] 25 mg PO DAILY #30 tab 03/13/19 05/10/19 05/09/19 Rx Torsemide [Demadex] 20 mg PO BID 05/10/19 05/10/19 05/09/19 History Lactulose 30 ml PO BID #1 udc 05/14/19 Unknown Rx Levofloxacin [Levaquin] 500 mg PO DAILY #5 tab 05/14/19 Unknown Rx - History of Present Illness-Resp Nature of Presenting Problem: Patient is a 53 year old male who presents to the ED via EMS with shortness of breath. States chest pain and increased swelling in bilateral lower extremities with shortness of breath. Reports symptoms have been present for 1 week. States taking 40 mg of Torsemide in the am and 40 mg of Torsemide in the pm. Reports he uses a bipap at night. Quality of Pain: reports: tightness Severity in ED: reports: mild Onset/Duration: reports: 1 week ago Timing: reports: still present, getting worse Associated Symptoms: reports: chest pain/soreness, shortness of breath, other (increased swelling in BLE) Similar Symptoms Previously?: Yes Recently seen or treated by another doctor?: No Review of Systems - Adult - REVIEW OF SYSTEMS - ADULT Constitutional: reports: no symptoms reported Eyes: reports: no symptoms reported Ears, Nose, Mouth & Throat: reports: no symptoms reported Cardiovascular: reports: see HPI, chest pain Respiratory: reports: see HPI, shortness of breath Gastrointestinal: reports: no symptoms reported Genitourinary: reports: no symptoms reported Musculoskeletal: reports: no symptoms reported Integumentary: reports: no symptoms reported Neurological: reports: no symptoms reported Psychiatric: reports: no symptoms reported Endocrine: reports: no symptoms reported Hematologic/Lymphatic: reports: no symptoms reported Allergic/Immunologic: reports: no symptoms reported All Other Systems: Reviewed and Negative Past History - Adult - PAST MEDICAL HISTORY-ADULT Review of Records: reports: Old Records Reviewed, Nursing Assessment Review, Medications Reviewed, Social history reviewed & non-contributory. Major Childhood Illnesses: reports: denies history Cardiovascular: reports: CAD, CHF, HTN, hyperlipidemia, pacemaker Respiratory: reports: COPD, sleep apnea Gastrointestinal: reports: denies history Obstetrical/Gynecological: reports: denies history Genitourinary: reports: kidney disease Musculoskeletal: reports: chronic pain Neurological: reports: denies history Psychiatric: reports: depression Endocrine/Immune: reports: Diabetes Other Conditions: reports: denies history - PRIOR SURGERIES/PROCEDURES Surgical/Procedure History: reports: appendectomy, other (pacemaker) - PRIOR HOSPITALIZATIONS Prior Hospitalizations: reports: none - IMMUNIZATION STATUS Childhood Immunizations: See Nurse Assessment Flu Vaccine: See Nurse Assessment - FAMILY HISTORY Family History: reviewed, not pertinent - SOCIAL HISTORY Smoking: cigarettes, less than 1 pack/day Provider spent 3-5 mins advising pt. on dangers of tobacco.: Discussed manners to quit use, and f/u contacts for add'l counseling. Substance Use: denies Physical Exam-General - PHYSICAL EXAM-ADULT Initial Vital Signs Reviewed: Yes - CONSTITUTIONAL General Appearance: alert, no apparent distress - RESPIRATORY Respiratory: chest non-tender, no respiratory distress, no accessory muscle use, wheezing (bilateral) - CARDIOVASCULAR Cardiovascular: regular rate, rhythm, no gallop, no murmur - GASTROINTESTINAL (ABDOMEN) Abdominal Exam: normal bowel sounds, non tender, soft - MUSCULOSKELETAL Extremity: non-tender, other (pitting edema to bilateral lower extremities up to mid thigh. walking boot present to left foot.) - SKIN Integumentary: normal color, normal turgor, warm/dry - NEUROLOGIC Neurologic: grossly normal - PSYCHIATRIC Psych/Mental Status: normal mood/affect, normal thought content, normal thought process, oriented x 3 Progress - PLAN OF CARE/RESULTS Progress/Plan/Lab Results: Vital Signs - 8 hr 08/02/19 15:19 08/02/19 15:24 08/02/19 15:30 Temperature 98.0 F Pulse Rate 87 Respiratory Rate 17 Blood Pressure 128/94 128/94 O2 Sat by Pulse Oximetry 100 100 98 08/02/19 15:32 08/02/19 15:45 08/02/19 16:02 Temperature Pulse Rate Respiratory Rate Blood Pressure 110/80 117/77 O2 Sat by Pulse Oximetry 99 99 98 08/02/19 16:08 08/02/19 16:15 08/02/19 16:30 Temperature Pulse Rate 90 Respiratory Rate 16 Blood Pressure O2 Sat by Pulse Oximetry 96 98 94 L 08/02/19 16:45 08/02/19 17:00 08/02/19 17:02 Temperature Pulse Rate 82 Respiratory Rate Blood Pressure 122/101 O2 Sat by Pulse Oximetry 100 97 96 Laboratory Results - last 24 hr 08/02/19 08/02/19 08/02/19 16:00 16:00 16:00 WBC 9.27 RBC 5.78 Hgb 16.6 Hct 52.4 H MCV 90.7 MCH 28.7 MCHC 31.7 L RDW Std Deviation 16.9 H Plt Count 228 MPV 11.3 H Immature Gran % (Auto) 0.2 Neut % (Auto) 77.2 H Lymph % (Auto) 15.0 L [place] % (Auto) 6.5 Eos % (Auto) 0.6 Baso % (Auto) 0.5 Immature Gran # (Auto) 0.02 Neut # (Auto) 7.15 H Lymph # (Auto) 1.39 [place] # (Auto) 0.60 H Eos # (Auto) 0.06 Baso # (Auto) 0.05 PT INR PTT (Actin FS) Sodium 129 L Potassium 3.8 Chloride 85 L Carbon Dioxide 31 Anion Gap 13 BUN 89 H Creatinine 2.3 H Estimated GFR/1.73 m2 30 BUN/Creatinine Ratio 39 Glucose 189 H Calculated Osmolality 291 Calcium 9.2 Total Bilirubin 1.34 H AST 67 H ALT 47 H Alkaline Phosphatase 180 H Troponin T High Sens Vvb-[id number]-Bbufrfqqfvz Pept 5351 H Total Protein 7.0 Albumin 3.7 Globulin 3.3 Albumin/Globulin Ratio 1.1 08/02/19 08/02/19 16:00 16:00 WBC RBC Hgb Hct MCV MCH MCHC RDW Std Deviation Plt Count MPV Immature Gran % (Auto) Neut % (Auto) Lymph % (Auto) [place] % (Auto) Eos % (Auto) Baso % (Auto) Immature Gran # (Auto) Neut # (Auto) Lymph # (Auto) [place] # (Auto) Eos # (Auto) Baso # (Auto) PT 15.5 INR 1.21 PTT (Actin FS) 26.6 Sodium Potassium Chloride Carbon Dioxide Anion Gap BUN Creatinine Estimated GFR/1.73 m2 BUN/Creatinine Ratio Glucose Calculated Osmolality Calcium Total Bilirubin AST ALT Alkaline Phosphatase Troponin T High Sens 94 H Tyk-F-Kqaviztxlmk Pept Total Protein Albumin Globulin Albumin/Globulin Ratio Orders Category Date Time Status CHEST-PORTABLE [RAD] Stat Exams 08/02/19 15:24 Completed BNP [PRO B-NATRIURETIC PEPTIDE] Stat Lab 08/02/19 16:00 Completed CBC WITH DIFF [HEME] Stat Lab 08/02/19 16:00 Completed CMP [COMPREHENSIVE METABOLIC PANEL] [CHEM] Stat Lab 08/02/19 16:00 Completed PROTIME WITH INR [COAG] Stat Lab 08/02/19 16:00 Completed PTT [COAG] Stat Lab 08/02/19 16:00 Completed TROPONIN T HIGH SENSITIVITY Stat Lab 08/02/19 16:00 Completed Albuterol 2.5MG/Ipratrop 0.5MG [Duoneb (A & A)] Med 08/02/19 15:24 Discontinued 3 ml INH NOW ONE Bumetanide [Bumex] Med 08/02/19 16:15 Discontinued 4 mg IV ONCE ONE Potassium Chloride E.r. [Klor-Con] Med 08/02/19 18:36 Discontinued 20 meq PO NOW ONE Aerosol Treatments Routine Oth 08/02/19 15:24 Completed Aerosol Treatments Stat Oth 08/02/19 15:24 Completed EKG [EKG] Stat Ther 08/02/19 15:22 Draft Weight gain of 30 pounds over the last 2 weeks. He has been on his prescribed torsemide and metolazone and has been taking those medications as directed. He was given Bumex 4 mg IVP here in the ED and had roughly 350 mL urine output. He has pitting edema to his thighs and does not require supplemental O2 but admits to wearing CPAP nightly. He has known chronic kidney disease with his last ejection fraction being 13% measured about one year prior. Proceed to admit with Dr. Mendez hospitalist. Patient aware and agrees with plan of care. Result Diagrams: 08/02/19 16:00 08/02/19 16:00 - EKG 1 Time of EKG reading by physician:: 17:27 EKG Read and Signed by:: Douglas Garces EKG Interpretation (*Must complete 3 of following elements*): Abnormal Rate: 83 Rhythm: atrial-sensed ventricular-paced rhythm [place]: normal [place] Interval: normal Comments: abnormal ECG - XRAY 1 XRAY Study: Chest Impression: Abnormal, See EMR Report (EXAM: CHEST-PORTABLE HISTORY: dyspnea TECHNIQUE: Single view COMPARISON: 05/13/2019 FINDINGS: Poor inspiratory effort. The heart is not enlarged. Mild vascular distention. There is a left- sided pacemaker. No pleural effusions identified. No consolidation. IMPRESSION: Cardiomegaly with mild pulmonary edema Electronically signed by Iglesia Mcelroy 08/02/2019 3:39 PM) - CONSULTS/PCP/HOSPITALIST Notification #1 *Consult/PCP/Hospitalist*: Andrea hospitalist Time Discussed: 19:00 Reason/Comments: Admit for acute decompensated heart failure with Dr. Mendez Consult Disposition: Will see in ED Departure - Departure Date of Disposition Decision: 08/02/19 Time of Disposition Decision: 19:15 DIAGNOSIS: Acute systolic heart failure, Fluid overload, Chronic kidney disease, Elevated troponin Disposition: ADMITTED INPATIENT 09 Certified Medical Emergency: Emergent Condition: Fair Referrals and Follow-Ups: Rayo Pagan MD [Primary Care Provider] - - Critical Care Note This patient required my direct & personal management of CC.: No Attestation - Physician/ OXANA Attestation Patient care was provided by Advanced Practice Provider:: No The physician spent face to face time with patient:: Yes Advanced Practice Provider documentation review:: Supervising physician onsite and consulted in the evaluation and care of this patient. The physician did have a face to face encounter with the patient. This chart was documented by the indicated scribe, (Nisha Grimaldo Scribe) and acc urately reflects the services I performed and decisions made by me, Douglas Garces MD, as attested by the provider's signature.
[2019-08-02] MEDS: DUONEB (A & A) INH SCH ×2 (20:23→23:27)
[2019-08-02] MEDS ORDERED: ZOFRAN IV PRN (20:23)
[2019-08-02] MEDS: ZAROXOLYN PO SCH (20:25)
--- NOTE | 2019-08-02 20:30 | HISTORY AND PHYSICAL ---
REASON FOR ADMISSION: 3 day history of shortness of breath and leg swelling. HISTORY OF PRESENT ILLNESS: Mr. Rolo Ace is a 53-year-old male with past medical history of nonischemic cardiomyopathy with an ejection fraction of 13%, status post defibrillator placement, type 2 diabetes, hypertensive heart failure with chronic kidney disease, coronary artery disease, and a chronic left plantar ulcer. He also may have COPD. He comes in today complaining of a 1 to 2 week history of easy satiety, abdominal swelling, followed by 1 week history of lower extremity swelling, and then subsequently 3 days history of cough productive of whitish sputum and dyspnea on exertion. Denies any PND or orthopnea, but attributes this to the fact that he uses oxygen and the BiPAP machine to get him comfortable at night. He has also noticed over the last 1 week that his urine output has declined. A week ago, he went for steroid shots and Toradol injections for his back problems. He states he has gained 30 pounds in the last 1 to 2 weeks. No fever, chills, or chest pain. No anginal-type symptoms, although he does complain of some mild palpitations which are occasionally irregular. This occurred today. REVIEW OF SYSTEMS: Twelve system review was done. Positive findings per HPI. ALLERGIES: Sulfa drugs. HOME MEDICATIONS: Have not been officially reconciled. SOCIAL HISTORY: Still smokes about half a pack a day. No alcohol or drug use. FAMILY HISTORY: Notable for coronary artery disease, lung cancer, and diabetes in first-degree relatives. PAST SURGICAL HISTORY: Pacemaker defibrillator placement, penile implant, appendectomy, left metatarsal amputation, and skin grafts. PAST MEDICAL HISTORY: See above, including peripheral arterial disease. LAB WORK: Chest film shows cardiomegaly with increased vascular markings. Sodium is 129, BUN is 89, and creatinine is 2.3. Total bilirubin is 1.3, glucose 189, AST 67, ALT 47, alkaline phosphatase 150. Troponin is 94. ProBNP 5000. PT is 59, INR 1.2. Electrocardiogram shows paced rhythm, atrial paced, with accompanying intraventricular delay. PHYSICAL EXAMINATION: VITAL SIGNS: Blood pressure is 120/101, heart rate 82, respirations 16, temperature is 98 degrees. He is 96% on room air. GENERAL: Obese, middle-aged man not in acute distress. He is alert and oriented x3 with normal mood and affect. HEAD: Normocephalic, atraumatic. EYES: TIM, EOMI. Anicteric and not pale. ENT: Oropharynx exam is grossly unremarkable. No exudates or erythema. No cyanosis. NECK: Supple. No visible JVD and positive hepatojugular reflux. No bruit. No thyromegaly. CHEST: Few bibasilar crepitations heard. Decreased air entry in the bases. CARDIOVASCULAR: First and second sounds heard. No gallops, murmurs, rubs. Rhythm is irregular with occasional skipped beats. ABDOMEN: Slightly protuberant/distended, soft. No focal tenderness. I cannot appreciate any organomegaly. Bowel sounds are normal. RECTAL: Deferred. EXTREMITIES: The patient has surprisingly good distal pulse volumes mainly in the upper extremities, but slightly diminished in the lower extremities which are slightly cool to touch. He has a left transmetatarsal stump with no breakdown. The patient has a dressing for chronic left plantar ulcer, but I did not remove the dressing. Dressing is dry and clean. The patient has 2+ pitting edema up to the mid thighs bilaterally. The patient has mild peripheral cyanosis. No clubbing noted. NEUROLOGICAL: No gross focal deficits. SKIN: Grossly intact. No breakdown, lesion, or erythema other than probable findings on the left foot. MUSCULAR: Exam is grossly normal. ASSESSMENT: 1. Acute systolic heart failure exacerbation. 2. Chronic obstructive pulmonary disease. 3. Peripheral artery disease. 4. Coronary artery disease. 5. Type 2 diabetes and neuropathy. 6. Hypertensive heart and kidney disease. 7. Sleep apnea. 8. Nonischemic cardiomyopathy. 9. Hypotonic hypovolemic hyponatremia secondary to congestive heart failure. 10. Chronic kidney disease stage 3. PLAN: Aggressive diuresis, even at the risk of worsening renal failure, will be instituted. I have not been able to review patient's home medication to make any modification in his diuretics. However, once this can be verified, I think it will behoove us to probably double the dose of his current home medication of diuretics. Repeat chest film in 24 hours to see if there has been any objective improvement in his lung findings. Monitor electrolytes closely. Will get dietitian to see patient because he does drink sodas frequently, and this could be compounding his problem. It is possible that the nonsteroidal anti-inflammatory medications, i.e. Toradol and steroids, that were given epidurally may have contributed to congestive heart failure due to their systemic affects. Continue patient on breathing treatments. Regarding diabetes, will start sliding scale and continue his home dose of Lantus once reconciled. The patient may benefit from titration of BiPAP settings to achieve better oxygenation and hopefully better response to treatment of congestive heart failure. Smoking cessation was reiterated. Patient says he is not actively smoking now since he has been short of breath. cc: Ricardo Mendez MD
[2019-08-02] MEDS: HUMALOG SUBQ SCH (21:00)
[2019-08-02] MEDS: LASIX 100 MG in NS 90 ML IV SCH (23:09)
[2019-08-02] MEDS: HEPARIN SUBQ SCH (23:19)
[2019-08-03] MEDS: NORCO-10 PO SCH ×4 (01:58→22:34)
[2019-08-03 06:59] LABS: BASO# 0.05 X1000 (0.0-0.2); BASO% 0.6 % (0.0-0.8); EOS# 0.08 X1000 (0.0-0.7); HEMATOCRIT 50.4 % (42.0-52.0); HEMOGLOBIN 16.2 g/dL (14.0-18.0); IMM GRAN# 0.02 X1000 (0.0-0.04); IMM GRAN% 0.2 % (0.0-0.5); LYMPH# 1.47 X1000 (1.2-3.4); LYMPH% 18.1 % (20.5-51.1); MCH 28.8 PG (27-31); MCHC 32.1 g/dL (33-37); MCV 89.5 FL (81-99); MONO% 6.2 % (1.7-9.3); MPV 11.2 FL (7.4-10.4); NEUT# 5.98 X1000 (1.4-6.5); NEUT% 73.9 % (42.2-75.2); PLT 211 X1000 (130-400); RBC 5.63 XMIL (4.7-6.1); RDW 16.5 % (11.5-14.5)
[2019-08-03] MEDS: DUONEB (A & A) INH SCH ×5 (08:00→23:59)
[2019-08-03 08:22] LABS: CREATININE 2.3 mg/dL (0.7-1.2); MAGNESIUM 2.4 mg/dL (1.5-2.7); POTASSIUM 3.3 mmol/L (3.5-5.1)
[2019-08-03] MEDS: HUMALOG SUBQ SCH ×4 (08:32→22:43)
[2019-08-03] MEDS: ZAROXOLYN PO SCH (08:46)
[2019-08-03] MEDS: HEPARIN SUBQ SCH ×2 (08:46→22:34)
[2019-08-03] MEDS: NEURONTIN PO SCH ×3 (08:47→22:34)
[2019-08-03] MEDS: LASIX 100 MG in NS 90 ML IV SCH ×2 (08:47→17:45)
--- NOTE | 2019-08-03 09:48 | PROGRESS NOTE ---
DATE: 08/03/2019 SUBJECTIVE: The patient reports breathing better. Denies any fever or chills. OBJECTIVE: Vital Signs: Temperature 97.9 degrees, heart rate 81, respiratory rate 20, blood pressure 134/94, O2 saturation 99% on CPAP. General: This is a morbidly obese, 53-year-old, male, lying in bed in no acute distress. Cardiovascular: S1, S2 heard. No murmurs, gallops, or rubs. Regular rate and rhythm. Respiratory: Bibasilar crepitations noted. Decreased air entry globally. The patient is not using any accessory muscles or having work of breathing. Abdomen: Soft, protuberant, distended, but nontender to palpation. Bowel sounds present. No organomegaly. Extremities: No clubbing or cyanosis. Edema 2+ in both lower extremities up to midthighs. He has left transmetatarsal stump with no breakdown. Neurological: The patient is alert and oriented x3. Moves all 4 extremities. LABORATORY DATA: Reviewed. Creatinine is stable. ASSESSMENT AND PLAN: 1. Acute systolic congestive heart failure. Ejection fraction is known to be 13%. Apparently, the patient has been having dietary indiscretions, drinking sodas, although he reports that he is on fluid restriction of 1500 mL of water per day. In any case, the patient has been placed on admission on Lasix drip. Clinically, he reports that he is breathing better, so at this point, will continue with the same management. 2. Chronic obstructive pulmonary disease. I do not think he is in any exacerbation. Will provide breathing treatments as needed only. 3. Coronary artery disease. The patient is not complaining of any chest pain. Will continue to monitor. 4. Diabetes mellitus type 2. Will continue with sliding scale insulin and Accu-Chek before meals and also at bedtime. 5. Chronic kidney disease stage 3. Creatinine is at baseline. Will continue to monitor. 6. Hyponatremia, improving. Will continue to monitor. 7. Disposition. Will continue to monitor this patient closely. Will consult Cardiology for further management. cc: Adolfo Kirkland MD
[2019-08-03] MEDS ORDERED: SAMSCA PO ONE (15:23)
[2019-08-03] MEDS: ISORDIL PO SCH (17:44)
[2019-08-03] MEDS: APRESOLINE PO SCH (17:45)
--- NOTE | 2019-08-03 19:32 | CARDIOLOGY CONSULTATION ---
DATE: 08/03/2019 CHIEF COMPLAINT: Shortness of breath, edema. HISTORY OF PRESENT ILLNESS: Mr. Ace is a 53-year-old white male with a history of nonischemic cardiomyopathy, chronic kidney disease who presented for the above complaints that have been ongoing for the last month or so. He significantly reduced his sodium intake as well as his fluid intake and try to escalated doses of diuretics at home to no avail. He continues to swell in his abdomen as well as lower extremities. He has had issues with orthopnea. Denies any exertional chest pain or defibrillator discharges. PAST MEDICAL HISTORY: 1. Significant for nonischemic cardiomyopathy with ICD implantation. This is a Bi-V ICD. His last cardiac catheterization was in 2013 showing minimal coronary disease. His last ejection fraction was per echocardiogram in August 2018 showed an EF of 10% with marked LV dilatation. 2. History of ventricular tachycardia. Again ICD is in place. 3. Hypertension. 4. Hyperlipidemia. 5. Diabetes with diabetic foot ulcers. He had a left transmetatarsal amputation. 6. Chronic kidney disease with creatinines in the mid to high 2s. 7. Sleep apnea. 8. Obesity. SOCIAL HISTORY: He continues to smoke around half pack per day. No alcohol use. FAMILY HISTORY: Significant for coronary disease as well as lung cancer. REVIEW OF SYSTEMS: A 10 system review of systems is negative except for those things mentioned in HPI. PHYSICAL EXAMINATION: He is afebrile. His heart rate is 92, blood pressure 127/86. His I's and O's have limited data but as of now he is negative around 2500 mL.General: He is in no acute distress. HEENT: Oropharynx is moist. Poor dentition. Eye examination shows pink conjunctivae, white sclerae. Neck: Shows no obvious thyromegaly or thyroid tenderness. Cardiovascular: He sounds to be in a regular rate and rhythm. He has no obvious murmurs. His JVP is quite distended. He has warm and well perfused extremities with markedly edematous lower extremities as well as thigh and abdominal pitting edema noted. Chest: Has reduced breath sounds somewhat diffusely. He has no increased work of breathing. Abdomen: Soft, nontender, nondistended. He has no obvious organomegaly. Skin: Warm and dry throughout without any rashes. PERTINENT DATA: His chest x-ray shows cardiomegaly with pulmonary edema. His EKG shows sinus rhythm. He has ventricular paced complexes. His white count is 8.1, his hematocrit is 50, his platelet count is 211,000. His sodium is 133, potassium 3.3, BUN 91, creatinine 2.3, his magnesium level is 2.4, his albumin yesterday was 3.7 with a proBNP of 5351 and an AST and ALT of 67 and 47 respectively. His troponin was checked twice and was 93 and 94 respectively with a normal TSH. ASSESSMENT: Mr. Ace is a 53-year-old male with a nonischemic cardiomyopathy who presents in acute systolic congestive heart failure. PLAN: I will give him a dose of Samsca today at 30 mg, recheck laboratories in the morning. Continue to attempt diuresis. He continues on hydralazine and ISDN. We had him on metolazone in which he takes 10 mg twice weekly at home. In addition he is on Coreg, isosorbide and hydralazine. Based on his blood pressures I will try to increase his hydralazine from 10 mg daily to 10 mg t.i.d. We will continue to try to titrate his medications. cc: Gianni Rosenberg MD
[2019-08-03] MEDS: COREG PO SCH (22:43)
[2019-08-03] MEDS: KLOR-CON PO SCH (22:43)
[2019-08-04] MEDS: NORCO-10 PO SCH ×4 (02:55→20:29)
[2019-08-04] MEDS: LASIX 100 MG in NS 90 ML IV SCH ×3 (04:29→23:28)
[2019-08-04 06:12] LABS: HEMATOCRIT 50.4 % (42.0-52.0); HEMOGLOBIN 16.2 g/dL (14.0-18.0); MCH 29.1 PG (27-31); MCHC 32.1 g/dL (33-37); MCV 90.6 FL (81-99); MPV 11.1 FL (7.4-10.4); RBC 5.56 XMIL (4.7-6.1); RDW 17.5 % (11.5-14.5); WBC 8.63 X1000 (4.8-10.8)
[2019-08-04 06:40] LABS: ALBUMIN 3.3 g/dL (3.5-5.0); CREATININE 2.3 mg/dL (0.7-1.2); MAGNESIUM 2.4 mg/dL (1.5-2.7)
[2019-08-04] MEDS ORDERED: ZITHROMAX 500 MG/NS 500 MG/250 ML IVPB IV SCH (07:00)
[2019-08-04] MEDS: HUMALOG SUBQ SCH ×4 (07:36→20:30)
--- NOTE | 2019-08-04 07:56 | PROGRESS NOTE ---
DATE: 08/04/2019 SUBJECTIVE: Patient reports breathing better. Reports swelling all over but getting better. OBJECTIVE: Vital Signs: Temperature 97.5 degrees, heart rate 86, respiratory rate 21, blood pressure 132/85, and O2 saturation 97% on CPAP machine. General: This is a morbidly obese 53- year-old male lying in bed in no acute distress. Cardiovascular: S1 and S2 heard. No murmurs, gallops or rubs. Regular rate and rhythm. Respiratory: Bibasilar crepitations still noted in both pulmonary bases as well as decreased air entry globally. The patient is not using any accessory muscles or having work of breathing. Abdomen: Soft and protuberant. Distended. Nontender to palpation. Abdominal wall edema noted. Extremities: No clubbing or cyanosis. There is edema 2+ in both lower extremities up to the mid thigh. He has left metatarsal stump. No breakdown. Neurological: Patient is alert and oriented x3. Moves all 4 extremities. LABORATORY DATA: CBC is okay. BMP shows potassium 3.0 with creatinine that is 2.3. Blood sugars 246. ASSESSMENT AND PLAN: 1. Acute systolic congestive heart failure. Patient is on Lasix drip and also getting metolazone. So far his in and out's for the last 24 hours indicates that he has made 5 L of urine. Negative balance of 3.994. At this point, we will continue with the same management. Cardiology is following this patient. We will follow recommendations. 2. COPD. I think this patient is not in any exacerbation. We will provide breathing treatments as needed only. He is complaining of some sore throat. I think will provide azithromycin for this patient. Considering that he may have been developing pharyngitis. 3. Coronary artery disease. The patient is stable not complaining of any chest pain. We will continue to monitor. 4. Diabetes mellitus type 2. We will continue with sliding scale insulin, Accu-Chek before meals and also at bedtime. 5. Chronic kidney disease stage 3. Creatinine continues to be at baseline. We will continue to monitor. 6. Hyponatremia. The patient has been given 1 dose of Samsca. We will see what the BMP shows today. 7. Disposition: We will continue to monitor this patient closely. Patient making good progress. cc: Adolfo Kirkland MD
[2019-08-04] MEDS: ZAROXOLYN PO SCH (07:59)
[2019-08-04] MEDS: HEPARIN SUBQ SCH ×2 (08:00→20:30)
[2019-08-04] MEDS: NEURONTIN PO SCH ×3 (08:00→20:30)
[2019-08-04] MEDS: LANTUS INSULIN SUBQ SCH (08:00)
[2019-08-04] MEDS: APRESOLINE PO SCH ×4 (08:01→20:30)
[2019-08-04] MEDS: COREG PO SCH ×2 (08:01→20:29)
[2019-08-04] MEDS: ISORDIL PO SCH ×3 (08:02→16:28)
[2019-08-04] MEDS: DUONEB (A & A) INH SCH ×5 (08:29→23:51)
[2019-08-04] MEDS ORDERED: SAMSCA PO ONE (08:32)
[2019-08-04] MEDS ORDERED: ISORDIL PO SCH (09:00)
[2019-08-04] MEDS ORDERED: APRESOLINE PO SCH (09:00)
[2019-08-04] MEDS ORDERED: KLOR-CON PO SCH (09:00)
[2019-08-04] MEDS ORDERED: ALDACTONE PO SCH (09:00)
--- NOTE | 2019-08-04 09:35 | Diag Imaging Result Doc PS360 ---
CHEST-2 VIEWS - 08/04/2019 INDICATION: CHF COMPARISON: 08/02/2019 FINDINGS: Stable left sided biventricular pacemaker. Stable cardiomegaly. Pulmonary vascularity is top normal. No infiltrates or edema. No pneumothorax or large pleural effusion. IMPRESSION: Cardiomegaly. Electronically signed by Oswaldo Blackman 08/04/2019 9:33 AM
[2019-08-04] MEDS ORDERED: CEPACOL SORE THROAT LOZENGE MT PRN (16:18)
[2019-08-04] MEDS: TYLENOL PO PRN (16:28)
[2019-08-04] MEDS: FLOMAX PO PRN (16:31)
[2019-08-04] MEDS: KLOR-CON PO SCH (20:29)
--- NOTE | 2019-08-04 21:23 | CARDIOLOGY PROGRESS NOTE ---
DATE: 08/04/2019 SUBJECTIVE: Mr. Ace reports some trouble with sore throat today and a cough that is productive. PHYSICAL EXAMINATION: Vital signs: He is afebrile. Heart rate of 90, blood pressure 132/88. His I's and O's have a cumulative net output of 6.5 L with 2 voids not measured. Generally: He is in no acute distress. Cardiovascular: He sounds to be in a regular rate and rhythm. He has no obvious murmurs. He has no S3. Extremities: He has marked bilateral lower extremity edema. Chest: His chest exam is relatively clear. No increased work of breathing. PERTINENT DATA: His BUN and creatinine are 92 and 2.3 which is stable. His sodium continues to be slightly low at 134 with a potassium at 3. His proBNP is 3419, which is improved from 5351. ASSESSMENT: Mr. Ace is a 53-year-old gentleman with nonischemic cardiomyopathy. PLAN: We have escalated his medicines in the form of increasing his hydralazine to 25 t.i.d. and adding in some spironolactone. I have repleted his potassium. We will continue him on the Lasix. He was given a dose of Samsca again today. cc: Gianni Rosenberg MD
[2019-08-05] MEDS: NORCO-10 PO SCH ×4 (02:05→21:06)
[2019-08-05] MEDS: HUMALOG SUBQ SCH ×4 (06:35→21:06)
[2019-08-05 07:06] LABS: HEMATOCRIT 51.3 % (42.0-52.0); HEMOGLOBIN 16.2 g/dL (14.0-18.0); MCH 29.2 PG (27-31); MCHC 31.6 g/dL (33-37); MCV 92.4 FL (81-99); PLT 179 X1000 (130-400); RBC 5.55 XMIL (4.7-6.1); RDW 17.3 % (11.5-14.5)
[2019-08-05] MEDS: DUONEB (A & A) INH SCH ×4 (07:36→19:52)
[2019-08-05 07:55] LABS: ALBUMIN 3.3 g/dL (3.5-5.0); CALCIUM 9.8 mg/dL (8.8-10.2); MAGNESIUM 2.3 mg/dL (1.5-2.7); PHOSPHORUS 3.7 mg/dL (2.7-4.5); POTASSIUM 2.9 mmol/L (3.5-5.1)
[2019-08-05] MEDS: NEURONTIN PO SCH ×3 (09:49→21:05)
[2019-08-05] MEDS: LASIX 100 MG in NS 90 ML IV SCH ×2 (09:49→21:02)
[2019-08-05] MEDS: ALDACTONE PO SCH (09:49)
[2019-08-05] MEDS: FLOMAX PO PRN (09:50)
[2019-08-05] MEDS: COREG PO SCH ×2 (09:50→21:05)
[2019-08-05] MEDS: HEPARIN SUBQ SCH ×2 (09:50→21:06)
[2019-08-05] MEDS: ISORDIL PO SCH ×3 (09:50→21:04)
[2019-08-05] MEDS: KLOR-CON PO SCH ×3 (09:51→21:05)
[2019-08-05] MEDS: ZITHROMAX PO SCH (09:51)
[2019-08-05] MEDS: APRESOLINE PO SCH ×3 (09:51→21:04)
[2019-08-05] MEDS ORDERED: POTASSIUM CHLORIDE 60 MEQ in NS 500 ML IV ONE (09:52)
[2019-08-05] MEDS: LANTUS INSULIN SUBQ SCH (09:53)
[2019-08-05] MEDS: TYLENOL PO PRN (12:39)
--- NOTE | 2019-08-05 13:33 | PROGRESS NOTE ---
DATE: 08/05/2019 SUBJECTIVE: Patient reports breathing better. Reports that he is making good amount of urine. Swelling in both legs are getting better. Of note, although not completely resolved. OBJECTIVE: Vital Signs: Temperature 97.4 degrees, heart rate 117, respiratory rate 22, blood pressure 124/83, O2 saturation 92% on room air. General examination: This is a morbidly obese, 58-year-old, male, lying in bed in no acute distress. Cardiovascular: S1, S2 heard. No murmurs, gallops, or rubs. Regular rate and rhythm. Respiratory Exam: Bibasilar crepitation still noted in both pulmonary patel, mostly in both bases and decreased air entry globally. The patient is not using any accessory muscles or having work of breathing. Abdomen: Soft, protuberant, distended, but nontender to palpation. Bowel sounds present. No organomegaly. Abdominal wall noted. Extremity: There is 2+ pedal edema in both lower extremities up to mid thigh. He has a left metatarsal stump. No breakdown. Neurological exam: Patient alert and oriented x3. Moves 4 extremities. LABORATORY DATA: CBC is okay and BMP reveals potassium 2.9, with creatinine of 2.0. ASSESSMENT AND PLAN: 1. Acute systolic congestive heart failure. We are continuing with Lasix drip and also metolazone. So far during the last 24 hours he has made 3.5 L of urine. At this point, we will continue with the same management. Cardiology is following this patient. We will follow recommendations. 2. Chronic obstructive pulmonary disease. The patient is not in exacerbation. We will continue providing breathing treatments as needed only. 3. Coronary artery disease. That condition is stable. Not complaining of any chest pain. We will continue to monitor. 4. Diabetes mellitus type 2. We will continue with sliding scale insulin. Accu-Chek before meals and also at bedtime. 5. Chronic kidney disease stage III. Creatinine continues to be at baseline. We will continue to monitor. 6. Hyponatremia. The patient has been given 1 dose of Samsca and he is going to have 1 more. We will keep checking basic metabolic panel daily. 7. Disposition: We will continue to monitor this patient closely. cc: Adolfo Kirkland MD
--- NOTE | 2019-08-05 14:23 | CARDIOLOGY PROGRESS NOTE ---
DATE: 08/05/2019 SUBJECTIVE: Mr. Ace reports he is diuresing. He is urinating very well. His weight is down 10 pounds since admission. He is having some mild cramping. OBJECTIVE: Vital Signs: Afebrile, heart rate 89, blood pressure 129/91. His total cumulative I's and O's are -9.8 L. General: No acute distress. Cardiovascular: He is in a regular rate and rhythm. He has no murmurs. Extremities: He has marked bilateral lower extremity edema. Warm and well perfused extremities. Chest: Mild rales in the bilateral bases. No increased work of breathing. Abdomen: Soft, nontender. PERTINENT DATA: His white count is not reported, his hematocrit is 51, his platelet count is 179,000. His sodium is 136, potassium is 2.9, BUN 83, creatinine is 2.0, carbon dioxide level has climbed up to 44. His albumin level is 3.3. ASSESSMENT: Mr. Ace is a 54-year-old gentleman who presents with acute systolic heart failure. PLAN: He will not receive a dose of Samsca today. He does seem to be getting a little bit alkalotic. Otherwise, will continue on his current furosemide dose. As he seems to be diuresing well with the drop in the Samsca, will likely decrease the rate of diuresis. I will change his potassium from a total of 100 mEq daily to 40 t.i.d. I will increase his Aldactone to 25, and also make a dose increase in his ISDN. Likely, we have still another few days of diuresis. We may consider backing off the Lasix drip a little bit tomorrow, if we continue to have issues with alkalosis. cc: Gianni Rosenberg MD
[2019-08-06] MEDS: NORCO-10 PO SCH ×4 (04:05→21:21)
[2019-08-06 06:36] LABS: HEMATOCRIT 46.4 % (42.0-52.0); HEMOGLOBIN 14.8 g/dL (14.0-18.0); MCH 29.3 PG (27-31); MCHC 31.9 g/dL (33-37); MCV 91.9 FL (81-99); MPV 11.1 FL (7.4-10.4); RBC 5.05 XMIL (4.7-6.1); RDW 17.1 % (11.5-14.5); WBC 7.19 X1000 (4.8-10.8)
[2019-08-06] MEDS: HUMALOG SUBQ SCH ×4 (06:37→21:31)
[2019-08-06] MEDS: LASIX 100 MG in NS 90 ML IV SCH ×2 (06:41→16:56)
[2019-08-06 07:06] LABS: ALBUMIN 3.1 g/dL (3.5-5.0); PHOSPHORUS 3.8 mg/dL (2.7-4.5); POTASSIUM 3.7 mmol/L (3.5-5.1)
[2019-08-06] MEDS: DUONEB (A & A) INH SCH ×5 (07:44→23:13)
[2019-08-06] MEDS ORDERED: SAMSCA PO ONE (08:47)
[2019-08-06] MEDS: ZITHROMAX PO SCH (10:42)
[2019-08-06] MEDS: APRESOLINE PO SCH ×3 (10:42→21:21)
[2019-08-06] MEDS: HEPARIN SUBQ SCH ×2 (10:42→21:30)
[2019-08-06] MEDS: COREG PO SCH ×2 (10:43→21:21)
[2019-08-06] MEDS: NEURONTIN PO SCH ×3 (10:43→21:33)
[2019-08-06] MEDS: ALDACTONE PO SCH (10:43)
[2019-08-06] MEDS: KLOR-CON PO SCH ×2 (10:43→21:21)
[2019-08-06] MEDS: ISORDIL PO SCH ×3 (10:44→21:20)
[2019-08-06] MEDS: LANTUS INSULIN SUBQ SCH (10:44)
[2019-08-06] MEDS: FLOMAX PO PRN (10:50)
--- NOTE | 2019-08-06 13:03 | PROGRESS NOTE ---
DATE: 08/06/2019 SUBJECTIVE: Patient reports breathing better. Reports less swelling. His in's and outs indicate 5.3 L of urine during the last 24 hours. OBJECTIVE: Vital Signs: Temperature 98.1 heart rate 88, respiratory rate 19, blood pressure 128/88, O2 saturation 95% on room air. General Examination: This is a morbidly obese 58-year-old -[place] male lying in bed, in no acute distress. Cardiovascular Exam: S1, S2 heard. No murmurs, gallops, or rubs. Regular rate and rhythm. Respiratory Exam: Minimal crepitation noted in both pulmonary bases. Patient is not using any accessory muscles or having work of breathing. Abdomen: Soft. Nontender to palpation. Bowel sounds present. No organomegaly. Extremities: Two plus pedal edema in both lower extremities up to mid thigh improved and also there is a left metatarsal stump with no breakdown. Neurological: Patient is alert and oriented x3. Moves 4 extremities. LABORATORY DATA: CBC is okay. BMP reveals potassium 3.7, with sodium 132 and creatinine 2.0 with carbon dioxide 35 ASSESSMENT AND PLAN: 1. Acute systolic congestive heart failure. He is on Lasix drip and metolazone. Alkalosis has improved. He has made 5.2 L of urine during the last 24 hours. We will continue with the same management. Cardiology following this patient. We will follow recommendations. 2. Chronic obstructive pulmonary disease. The patient is not on any exacerbation. We will provide breathing treatments as needed only. 3. Coronary artery disease. That condition is stable. Not complaining of any chest pain. We will continue to monitor. 4. Diabetes mellitus type 2. We will continue with sliding scale insulin and Accu-Chek before meals and also at bedtime. 5. Chronic kidney disease stage 3. Creatinine continues at baseline. Will continue to monitor. 6. Hyponatremia. Sodium is 132 today. He has been receiving Samsca. Will continue to monitor. 7. Disposition. Will continue to monitor this patient closely. cc: Adolfo Kirkland MD [facility]
--- NOTE | 2019-08-06 21:15 | CARDIOLOGY PROGRESS NOTE ---
DATE: 08/06/2019 SUBJECTIVE: Mr. Ace reports that he is doing better. He continues to have significant fluid excess, though. OBJECTIVE: He is afebrile. Heart rate 92, blood pressure 133/80. Intake and output demonstrates continued significant fluid loss. He has -12 L for the course of the hospitalization. Generally he is in no acute distress. Cardiovascularly, he is in a regular rate and rhythm. He has very distant heart sounds, laterally displaced PMI. Marked diffuse anasarca. Warm and well-perfused extremities. His chest exam is distant. Mild rales in the bases. LABORATORY DATA: Sodium 132, potassium 3.7, BUN 79, creatinine is 2, albumin level is 3.1. ASSESSMENT: Mr. Ace is a 54-year-old gentleman with a nonischemic cardiomyopathy. PLAN: At this point we will dose him again with Samsca, given his sodium of 132. I have increased his hydralazine to 50 mg. I have decreased his potassium supplementation to 40 mEq b.i.d. Laboratories have been ordered for the morning. He is experiencing some constipation, so we have ordered MiraLAX and Colace p.r.n. cc: Gianni Rosenberg MD
[2019-08-06] MEDS: COLACE PO SCH (21:20)
[2019-08-06] MEDS: TYLENOL PO PRN (22:19)
--- NOTE | 2019-08-06 22:25 | Diag Imaging Result Doc PS360 ---
CT THORAX W/O CONTRAST - 08/06/2019 INDICATION: congestion COMPARISON: 08/04/2019, 03/12/2019 FINDINGS: There is a left-sided pacemaker in good position. There is cardiomegaly. There is mild diffuse mediastinal lymphadenopathy stable from prior. Upper abdominal images appear normal. There is hazy groundglass interstitial infiltrate diffusely and bilaterally compatible with mild pulmonary edema. No pneumothorax or pleural effusion. There are moderate degenerative changes of the spine. No acute or suspicious bony lesion. IMPRESSION: Congestive heart failure. This exam was performed using automated exposure control, adjustment of mA or kV according to patient size, and/or use of iterative reconstruction technique Electronically signed by Oswaldo Blackman 08/06/2019 10:23 PM
[2019-08-07] MEDS: LASIX 100 MG in NS 90 ML IV SCH ×2 (04:06→13:44)
[2019-08-07] MEDS: NORCO-10 PO SCH ×4 (04:06→22:51)
[2019-08-07] MEDS: HUMALOG SUBQ SCH ×4 (06:25→21:48)
[2019-08-07 07:34] LABS: HEMATOCRIT 50.1 % (42.0-52.0); HEMOGLOBIN 15.9 g/dL (14.0-18.0); MCH 29.3 PG (27-31); MCHC 31.7 g/dL (33-37); MCV 92.3 FL (81-99); MPV 11.3 FL (7.4-10.4); RBC 5.43 XMIL (4.7-6.1); RDW 17.4 % (11.5-14.5); WBC 6.84 X1000 (4.8-10.8)
[2019-08-07 08:25] LABS: ALBUMIN 3.5 g/dL (3.5-5.0); CALCIUM 9.5 mg/dL (8.8-10.2); CREATININE 2.1 mg/dL (0.7-1.2); PHOSPHORUS 3.9 mg/dL (2.7-4.5); POTASSIUM 3.6 mmol/L (3.5-5.1)
[2019-08-07] MEDS: DUONEB (A & A) INH SCH ×5 (08:36→23:38)
[2019-08-07] MEDS: HEPARIN SUBQ SCH ×2 (09:18→21:41)
[2019-08-07] MEDS: LANTUS INSULIN SUBQ SCH (09:18)
[2019-08-07] MEDS: KLOR-CON PO SCH ×2 (09:19→21:40)
[2019-08-07] MEDS: ALDACTONE PO SCH (09:19)
[2019-08-07] MEDS: COLACE PO SCH ×2 (09:20→21:41)
[2019-08-07] MEDS: ISORDIL PO SCH ×3 (09:20→21:40)
[2019-08-07] MEDS: APRESOLINE PO SCH ×3 (09:20→21:40)
[2019-08-07] MEDS: COREG PO SCH ×2 (09:20→21:41)
[2019-08-07] MEDS: NEURONTIN PO SCH ×3 (09:20→22:51)
--- NOTE | 2019-08-07 15:25 | PROGRESS NOTE ---
DATE: 08/07/2019 INTERVAL HISTORY: The patient's respiratory status remains good. Still has pretty significant lower extremity edema, but not really involving his abdomen to speak of anymore. No acute events. No new complaints. REVIEW OF SYSTEMS: Twelve point review of systems negative except as per interval history. LABS: WBC 6.8, hemoglobin 15.9, hematocrit 50.1, platelets 192,000. Sodium 133, potassium 3.6, BUN 94, creatinine 2.1, glucose 173 to 203. PHYSICAL EXAMINATION: General: No acute distress. Vitals: As above. Morbidly obese. HEENT: Normocephalic, atraumatic. Moist mucous membranes. No cervical adenopathy. Cardiovascular: Regular rate and rhythm. No murmurs noted. Pulmonary: Minimal bibasilar crackles but otherwise largely clear within the limits of body habitus. Abdomen: Soft, nontender, nondistended. Bowel sounds positive. Extremities: Peripheral pulses decreased but intact. There is 1 to 2+ edema up to the mid upper thigh. Left foot with stable well-healed forefoot amputation. Chronic left plantar foot ulcer without any signs of infection. Neurologic: Cranial nerves grossly intact. No focal deficits identified. Psychiatric: Normal mood and affect. Awake, alert, oriented x3. ASSESSMENT AND PLAN: 1. Mild acute on chronic systolic congestive heart failure, last ejection fraction 10%. Remains on Lasix. Off of metolazone currently. The patient's respiratory status is stable. Still some lower extremity edema. Cardiology on board and adjusting medications. Uncertain how good we can realistically expect to get his legs, but he has had pretty significant diuresis which does continue so we may still have some room for improvement. We will see how he does over the next day or 2. The patient has reported intolerance of ACEs and ARBs, so he is not on one. 2. COPD. No signs exacerbation at this time. Monitor. 3. Coronary artery disease, noted. 4. Diabetes. Glucose control is not ideal. We will slightly increase basal Lantus and monitor. 5. Hyponatremia, pretty mild and chronic. Cardiology dosing Samsca intermittently. 6. Morbid obesity. Patient counseled on diet and exercise. 7. Tobacco abuse. Patient has been counseled on cessation. 8. Diabetic peripheral neuropathy and chronic left foot diabetic ulcer. No sign of infection in or around the ulcer at this time. Continue home gabapentin. 9. CKD 3. Essentially stable kidney function. Monitor.
[2019-08-07] MEDS: MIRALAX PO PRN (15:42)
[2019-08-07] MEDS ORDERED: ZAROXOLYN PO ONE (19:44)
--- NOTE | 2019-08-07 20:39 | PROGRESS NOTE ---
DATE: 08/07/2019 SUBJECTIVE: Patient continues without shortness of breath or chest discomfort on room air. OBJECTIVE: Blood pressure 124/84, heart rate 90, oxygen saturation 97% on room air.Neck: Jugular venous distention is evident consistent with significantly elevated central venous pressure. Chest: Clear to auscultation bilaterally. Cardiac Exam: Reveals a regular rate and rhythm without appreciable murmur or gallop. Extremities: Demonstrate 3+ edema up to above the level of the knee. LABORATORY DATA: Includes a white blood cell count 6.84, hematocrit 50.1, hemoglobin 15.9, platelet count 192,000, sodium 133, potassium 3.6, chloride 82, carbon dioxide 37. BUN 84, creatinine 2.1, glucose 203, albumin 3.5. IMPRESSION: 1. Acute on chronic systolic heart failure, biventricular. Right greater than left. 2. Severe nonischemic cardiomyopathy. 3. Ventricular arrhythmias. Patient is status post implantable defibrillator. 4. Chronic kidney disease with creatinine above baseline. Cardiorenal syndrome apparent. 5. Hypertension. 6. Hyperlipidemia. 7. Obesity. 8. Obstructive sleep apnea. 9. Diabetes with diabetic foot ulcers and previous left transmetatarsal amputation. RECOMMENDATIONS: 1. Continue diuresis with intravenous Lasix. 2. Supplement diuretic regimen with metolazone 5 mg p.o. today. cc: Avila Ramirez MD
[2019-08-07] MEDS: FLOMAX PO PRN (21:48)
[2019-08-08] MEDS: LASIX 100 MG in NS 90 ML IV SCH ×3 (01:12→20:51)
[2019-08-08] MEDS: NORCO-10 PO SCH ×3 (04:53→17:35)
[2019-08-08] MEDS: HUMALOG SUBQ SCH ×4 (06:08→20:52)
[2019-08-08 06:28] LABS: BASO# 0.03 X1000 (0.0-0.2); BASO% 0.4 % (0.0-0.8); EOS% 2.8 % (0.0-10.0); HEMATOCRIT 48.4 % (42.0-52.0); HEMOGLOBIN 15.2 g/dL (14.0-18.0); LYMPH# 0.92 X1000 (1.2-3.4); LYMPH% 12.9 % (20.5-51.1); MCH 28.7 PG (27-31); MCHC 31.4 g/dL (33-37); MCV 91.3 FL (81-99); MONO# 0.49 X1000 (0.11-0.59); MONO% 6.9 % (1.7-9.3); NEUT# 5.51 X1000 (1.4-6.5); PLT 191 X1000 (130-400); WBC 7.15 X1000 (4.8-10.8)
[2019-08-08 07:05] LABS: CALCIUM 9.2 mg/dL (8.8-10.2); CREATININE 1.9 mg/dL (0.7-1.2); POTASSIUM 3.7 mmol/L (3.5-5.1)
[2019-08-08] MEDS: DUONEB (A & A) INH SCH ×3 (08:14→15:45)
[2019-08-08] MEDS: ISORDIL PO SCH ×3 (10:21→20:06)
[2019-08-08] MEDS: COLACE PO SCH ×2 (10:21→20:07)
[2019-08-08] MEDS: NEURONTIN PO SCH ×3 (10:21→17:35)
[2019-08-08] MEDS: APRESOLINE PO SCH ×3 (10:22→20:06)
[2019-08-08] MEDS: ALDACTONE PO SCH (10:22)
[2019-08-08] MEDS: COREG PO SCH ×2 (10:23→20:07)
[2019-08-08] MEDS: KLOR-CON PO SCH ×2 (10:23→20:07)
[2019-08-08] MEDS: HEPARIN SUBQ SCH ×2 (10:23→20:06)
[2019-08-08] MEDS: LANTUS INSULIN SUBQ SCH (10:24)
[2019-08-08] MEDS ORDERED: NEURONTIN PO SCH (13:00)
--- NOTE | 2019-08-08 15:56 | PROGRESS NOTE ---
DATE: 08/08/2019 INTERVAL HISTORY: Lower extremity edema, slightly improved from previous. No acute events overnight. No new complaints. REVIEW OF SYSTEMS: Twelve point review of systems negative except as per interval history. LABS: WBC 7.15, hemoglobin 15.2, hematocrit 48.4, platelets 191,000. Sodium 136, potassium 3.7, BUN 79, creatinine 1.9, glucose 77 to 139. PHYSICAL EXAMINATION: Vital Signs: T-max 98.0, pulse respirations 18, blood pressure 129/76, O2 saturation 98% on room air. General: In no acute distress. Obese. HEENT: Normocephalic, atraumatic. Moist mucous membranes. No cervical adenopathy. Cardiovascular: Regular rate and rhythm. No murmurs noted. Pulmonary: Minimal bibasilar crackles, approximately stable, otherwise clear to auscultation within the limits of body habitus. Abdomen: Soft, nontender, nondistended. Bowel sounds positive. Extremities: Peripheral pulses remain decreased but intact. Chronic venous stasis changes as well as approximately 2+ edema up to the mid thigh. Left foot, stable. Well-healed forefoot amputation. Chronic left plantar foot ulcer, dry without any sign of infection. Neurologic: Cranial nerves grossly intact. No focal deficits identified. Psychiatric: Normal mood and affect. Awake, alert, oriented x3. ASSESSMENT AND PLAN: 1. Mild acute on chronic systolic congestive heart failure. Last known ejection fraction 10%. Remains on Lasix drip. He got a dose of metolazone yesterday afternoon. Again, on his in's and out's he appears to have had an excellent diuresis but we have only gotten modest improvement in his edema. Kidneys appear to be tolerating the diuresis so far. We will see how he does. The patient has reported intolerance to ACEs and ARBs, so he is not on one despite his severe systolic congestive heart failure. 2. Chronic obstructive pulmonary disease. No wheezing or other sign of exacerbation. Monitor. 3. Coronary artery disease, noted. 4. Diabetes glucose control much improved since increasing Lantus yesterday. Continue to monitor. 5. Hyponatremia, resolved. Monitor. 6. Morbid obesity. Patient has been counseled on diet and exercise. 7. Tobacco abuse. Patient has been counseled on cessation. 8. Diabetic peripheral neuropathy and chronic left diabetic foot ulcer. No sign of infection of the ulcer currently. Continue home gabapentin. 9. Chronic kidney disease, stage 3. Kidney function with some fluctuations, but roughly stable, actually a little bit improved from admission. Continue to monitor in the setting of aggressive diuresis.
[2019-08-08] MEDS ORDERED: ZAROXOLYN PO ONE (17:09)
--- NOTE | 2019-08-08 18:35 | PROGRESS NOTE ---
DATE: 08/08/2019 SUBJECTIVE: Patient continues to diurese fairly well. He denies shortness of breath or chest discomfort on room air. OBJECTIVE: Vital signs: Blood pressure 124/84, heart rate 99, oxygen saturation 97% on room air. Urine output over last 24 hours greater than 4 L. Neck: Jugular venous distention is evident, consistent with elevated central venous pressure. Chest: Clear to auscultation. Cardiac Exam: Reveals a regular rate and rhythm without appreciable murmur or gallop. Extremities: Demonstrate 3+ edema beyond the level of the thigh and into the lower abdomen. LABORATORY DATA: Includes white blood cell count of 7.15, hematocrit 48.4, hemoglobin 15.2, platelet count 191,000. Sodium 136, potassium 3.7, chloride 90, carbon dioxide 33, BUN 79, creatinine 1.9. Glucose 77. IMPRESSIONS: 1. Acute on chronic systolic heart failure, biventricular, right greater than left. 2. Severe nonischemic cardiomyopathy. 3. Ventricular arrhythmia, patient status post implantable defibrillator. 4. Chronic kidney disease with elevated creatinine above baseline, probably due to cardiorenal syndrome. This appears to be improving with diuresis. 5. Hypertension. 6. Hyperlipidemia. 7. Obesity. 8. Obstructive sleep apnea. 9. Diabetes with diabetic foot ulcers and previous left transmetatarsal amputation. RECOMMENDATIONS: 1. Continue diuresis with intravenous Lasix. 2. Supplement diuretic regimen with additional dose of metolazone 5 mg p.o. today. cc: Avila Ramirez MD
[2019-08-09] MEDS: DUONEB (A & A) INH SCH ×6 (03:01→22:57)
[2019-08-09] MEDS: LASIX 100 MG in NS 90 ML IV SCH ×3 (05:01→23:25)
[2019-08-09] MEDS: NORCO-10 PO SCH ×4 (05:02→21:08)
[2019-08-09] MEDS: HEPARIN SUBQ SCH ×2 (10:42→21:08)
[2019-08-09] MEDS: FLOMAX PO PRN (10:42)
[2019-08-09] MEDS: NEURONTIN PO SCH ×3 (10:43→21:08)
[2019-08-09] MEDS: APRESOLINE PO SCH ×3 (10:43→21:07)
[2019-08-09] MEDS: COLACE PO SCH ×2 (10:43→21:08)
[2019-08-09] MEDS: ALDACTONE PO SCH (10:43)
[2019-08-09] MEDS: COREG PO SCH ×2 (10:43→21:13)
[2019-08-09] MEDS: LANTUS INSULIN SUBQ SCH (10:43)
[2019-08-09] MEDS: ISORDIL PO SCH ×3 (10:44→21:13)
[2019-08-09] MEDS: KLOR-CON PO SCH ×2 (10:44→21:08)
[2019-08-09] MEDS: HUMALOG SUBQ SCH ×3 (12:36→20:55)
[2019-08-09] MEDS ORDERED: ZAROXOLYN PO ONE (15:00)
[2019-08-09] MEDS ORDERED: ALBUMIN 25% IV ONE (15:26)
--- NOTE | 2019-08-09 15:53 | PROGRESS NOTE ---
DATE: 08/09/2019 SUBJECTIVE: Patient has no major complaints. OBJECTIVE: Vital signs: Blood pressure is 130/87, heart rate stable respiratory rate 18, temp 96.5. Cardiovascular: Regular rate and rhythm. Pulmonary: Bilateral breath sounds. Clear to auscultation. GI: Soft, nontender, nondistended. Bowel sounds are positive. LABORATORY DATA: No new data today. Creatinine is 1.9. PROBLEM LIST: 1. Congestive heart failure exacerbation, acute. He is still very, very edematous. His albumin has come up but it was low at the beginning, so we will get an albumin tomorrow. I think we have increased his dose of metolazone. He is on Lasix. Will continue diuresis and follow. 2. Chronic obstructive pulmonary disease. This is stable. 3. Type 2 diabetes. We will continue Lantus and follow closely. 4. Chronic renal failure which is stable despite diuresis. We will continue to monitor closely. Although adequately having decent urine output, he is still very edematous. He is not really on any medications I think that would cause some issues and we will continue to monitor. Probably jump up on his Lantus a little bit. His sugars overall are pretty stable. He did have a couple low ones this morning or at least in the 80s, so we will continue to monitor for another day before we titrate up. cc: Adalid Greenfield MD MTDD
--- NOTE | 2019-08-09 18:25 | CARDIOLOGY PROGRESS NOTE ---
DATE: 08/09/2019 SUBJECTIVE: The patient reports continued problems with edema. No pain or complaints. OBJECTIVE: Vital Signs: Afebrile. Heart rate has been anywhere from the 80s to low 100s. His blood pressure most recently is 126/102. His I's and O's are -21 L for the course of the hospitalization. Cardiovascular: He is in a regular rate and rhythm. He has no murmurs. He has marked anasarca and warm and well perfused extremities. His chest exam is clear bilaterally. PERTINENT DATA: He has no new laboratory data. ASSESSMENT: Mr. Ace is a 54-year-old male with a nonischemic cardiomyopathy. PLAN: We will give him a dose of metolazone tonight, continue him on the Lasix. We will increase his Isordil to 40 mg t.i.d. Continue him on his current dose of beta-sohail. Laboratories to be checked in the morning. cc: Gianni Rosenberg MD
[2019-08-09] MEDS ORDERED: COREG PO SCH (21:00)
[2019-08-10] MEDS: NORCO-10 PO SCH ×6 (03:35→21:17)
[2019-08-10 06:42] LABS: CALCIUM 9.2 mg/dL (8.8-10.2); CREATININE 1.8 mg/dL (0.7-1.2); MAGNESIUM 2.2 mg/dL (1.5-2.7); POTASSIUM 3.3 mmol/L (3.5-5.1)
[2019-08-10] MEDS: HUMALOG SUBQ SCH ×5 (07:22→21:34)
[2019-08-10] MEDS: DUONEB (A & A) INH SCH ×4 (07:39→19:40)
[2019-08-10] MEDS: HEPARIN SUBQ SCH ×2 (08:30→21:18)
[2019-08-10] MEDS: ALDACTONE PO SCH (08:30)
[2019-08-10] MEDS: KLOR-CON PO SCH ×2 (08:30→21:18)
[2019-08-10] MEDS: NEURONTIN PO SCH ×3 (08:30→16:09)
[2019-08-10] MEDS: APRESOLINE PO SCH ×3 (08:30→21:26)
[2019-08-10] MEDS: ISORDIL PO SCH ×3 (08:30→21:26)
[2019-08-10] MEDS: COREG PO SCH ×2 (08:30→21:17)
[2019-08-10] MEDS: COLACE PO SCH ×2 (08:30→21:17)
[2019-08-10] MEDS: LANTUS INSULIN SUBQ SCH (08:31)
[2019-08-10] MEDS ORDERED: SAMSCA PO ONE (09:11)
[2019-08-10] MEDS: LASIX 100 MG in NS 90 ML IV SCH ×2 (10:47→21:18)
[2019-08-10] MEDS: MIRALAX PO PRN (10:48)
[2019-08-10] MEDS: FLOMAX PO PRN (10:48)
[2019-08-10] MEDS ORDERED: KLOR-CON PO ONE (12:00)
[2019-08-10] MEDS ORDERED: NS 250 ML ONE (15:13)
[2019-08-10 15:17] LABS: INR 1.16
[2019-08-10] MEDS: TYLENOL PO PRN (16:09)
[2019-08-10] MEDS: MYCOSTATIN SUSP PO SCH (21:17)
--- NOTE | 2019-08-10 22:29 | PROGRESS NOTE ---
DATE: 08/10/2019 SUBJECTIVE: Patient is sleeping. No major issues overnight. OBJECTIVE: Blood pressure 144/88, heart rate 97, respiratory rate 18, temperature 97.7 degrees. Cardiovascular: Regular rate and rhythm. Pulmonary: Bilateral breath sounds clear to auscultation. Abdomen: Soft, nontender, nondistended. Bowel sounds are positive. Extremities: Showed diminished and still showed peripheral edema. LABORATORY DATA: Potassium 3.3, creatinine 1.8. Blood sugar 216. ProBNP 2905, down from 3276. PROBLEM LIST: 1. Acute systolic congestive heart failure exacerbation. We will continue IV Lasix. He is on metolazone and Lasix. We will continue diuresis. He is on beta sohail. He is on Isordil and we will follow up tomorrow. 2. Chronic obstructive pulmonary disease exacerbation. That seems to have stabilized. 3. Type 2 diabetes. Continue to monitor his blood sugar. 4. Chronic renal failure stage IIIB. This seems to be doing okay. We will continue to follow closely. cc: Adalid Greenfield MD
[2019-08-11] MEDS: DUONEB (A & A) INH SCH ×5 (00:03→19:39)
[2019-08-11] MEDS: NORCO-10 PO SCH ×4 (04:00→21:38)
[2019-08-11] MEDS: HUMALOG SUBQ SCH ×4 (06:09→21:42)
[2019-08-11 07:02] LABS: HEMATOCRIT 49.6 % (42.0-52.0); HEMOGLOBIN 15.6 g/dL (14.0-18.0); MCH 29.1 PG (27-31); MCHC 31.5 g/dL (33-37); MCV 92.5 FL (81-99); MPV 10.9 FL (7.4-10.4); RBC 5.36 XMIL (4.7-6.1); RDW 17.6 % (11.5-14.5); WBC 6.75 X1000 (4.8-10.8)
[2019-08-11 07:32] LABS: ALB/GLOB RATIO 0.9; ALBUMIN 3.5 g/dL (3.5-5.0); CALCIUM 9.2 mg/dL (8.8-10.2); MAGNESIUM 2.5 mg/dL (1.5-2.7); POTASSIUM 3.5 mmol/L (3.5-5.1); TOTAL BILIRUBIN 1.55 mg/dL (0.20-1.00); TOTAL PROTEIN 7.4 g/dL (6.3-8.3)
[2019-08-11] MEDS: APRESOLINE PO SCH ×4 (08:36→21:37)
[2019-08-11] MEDS: MIRALAX PO PRN (08:37)
[2019-08-11] MEDS: ISORDIL PO SCH ×3 (08:37→21:38)
[2019-08-11] MEDS: KLOR-CON PO SCH ×2 (08:37→21:37)
[2019-08-11] MEDS: ALDACTONE PO SCH (08:37)
[2019-08-11] MEDS: MYCOSTATIN SUSP PO SCH ×4 (08:37→21:37)
[2019-08-11] MEDS: COREG PO SCH ×2 (08:37→21:40)
[2019-08-11] MEDS: COLACE PO SCH ×2 (08:37→21:38)
[2019-08-11] MEDS: FLOMAX PO PRN (08:37)
[2019-08-11] MEDS: NEURONTIN PO SCH ×3 (08:38→21:38)
[2019-08-11] MEDS: SAMSCA PO SCH (08:38)
[2019-08-11] MEDS ORDERED: LASIX IV SCH (09:00)
[2019-08-11] MEDS: HEPARIN SUBQ SCH (09:28)
[2019-08-11] MEDS: LANTUS INSULIN SUBQ SCH (09:52)
[2019-08-11] MEDS ORDERED: XARELTO PO ONE (13:41)
[2019-08-11] MEDS ORDERED: POTASSIUM CHLORIDE 20% LIQUID PO ONE (13:59)
--- NOTE | 2019-08-11 14:33 | CARDIOLOGY PROGRESS NOTE ---
DATE: 08/11/2019 SUBJECTIVE: Mr. Ace continues to complain of edema. He has had some belly discomfort related to his Lovenox injections. OBJECTIVE: Vital Signs: He is afebrile, heart rate 87, blood pressure is 116/78. I's and O's continue to be quite negative, -27 L over the course of the hospitalization. Over the last 24 to 48 hours, he has had a 3 L negative day and a 3.9 L negative today. General: No acute distress. Cardiovascular: He sounds to be in a regular rate and rhythm. He has no murmurs. He has no S3. Extremities: He has marked bilateral lower extremity edema with distended jugular veins. Chest: Sounds clear, but distant. He has no increased work of breathing. Abdomen: Soft, nontender. PERTINENT DATA: Sodium is 133, potassium 3.5, BUN 77, creatinine is 2.0. Yesterday, it was 81 and 1.8. His proBNP is 3434, which is up from 2905 on 08/10/2019. It was 5351 on presentation. ASSESSMENT: Mr. Ace is a 54-year-old male with a nonischemic cardiomyopathy. PLAN: He continues to have markedly negative I's and O's, but his weights do not seem to be reflecting this. His weight today is 338 pounds. We had a 349 pound weight on 08/06/2019, but prior to that, there was quite some significant irregularities in his weights. We will have a standup scale weight done tomorrow, along with a chest x-ray and repeat laboratories. Based on his I's and O's, I actually backed off his Lasix to 80 IV b.i.d. He is continuing to receive Samsca. We may need to consider this patient for outpatient inotropic therapy. May consider addition of an ARB tomorrow. cc: Gianni Rosenberg MD
[2019-08-11] MEDS: TYLENOL PO PRN (16:33)
--- NOTE | 2019-08-11 18:13 | PROGRESS NOTE ---
DATE: 08/11/2019 SUBJECTIVE: Patient has no major complaints. OBJECTIVE: Blood pressure 150/69, heart rate 87, respiratory rate 18, and temperature 99 degrees.Cardiovascular: Regular rate and rhythm. Pulmonary: Bilateral breath sounds clear. Cardiovascular: Regular rhythm. GI: Soft and nontender. LABORATORY: White count 6, hemoglobin and hematocrit 15 and 49, and platelets 175,000. BUN and creatinine is 77 and 2 which is stable. ASSESSMENT AND PLAN: 1. Acute congestive heart failure exacerbation. We will continue IV Lasix. He is on metolazone. I will give him some more albumin today. To me, it looks like there is less edema. He is still fairly edematous, but there is still overall less edema. We will continue to monitor. 2. Hyponatremia. He is getting Samsca. This will aid in aquaresis as well. 3. Type 2 diabetes. Blood sugars seem a bit better controlled at least below 200. 4. Chronic renal failure stage 3B is stable currently. We will continue to monitor closely. cc: Adalid Greenfield MD MTDJami
[2019-08-11] MEDS: LASIX IV SCH (21:39)
[2019-08-12] MEDS: DUONEB (A & A) INH SCH ×5 (00:37→19:29)
[2019-08-12] MEDS: TYLENOL PO PRN ×2 (01:51→21:54)
[2019-08-12] MEDS: NORCO-10 PO SCH ×4 (03:51→21:21)
[2019-08-12] MEDS: HUMALOG SUBQ SCH ×4 (06:13→21:35)
[2019-08-12] MEDS: XARELTO PO SCH (06:13)
--- NOTE | 2019-08-12 07:31 | Diag Imaging Result Doc PS360 ---
EXAM: CHEST-PORTABLE 08/12/2019 HISTORY: dyspnea TECHNIQUE: AP portable at 0628 COMMENT: There is cardiomegaly. There is a PICC line on the right with its tip just above the right atrium. IMPRESSION: There has been no appreciable change since 08/04/2019. Electronically signed by Joel Villela 08/12/2019 7:29 AM
[2019-08-12 07:39] LABS: EOS# 0.15 X1000 (0.0-0.7); EOS% 1.5 % (0.0-10.0); HEMATOCRIT 47.7 % (42.0-52.0); HEMOGLOBIN 15.1 g/dL (14.0-18.0); IMM GRAN# 0.02 X1000 (0.0-0.04); IMM GRAN% 0.2 % (0.0-0.5); LYMPH# 1.33 X1000 (1.2-3.4); LYMPH% 13.5 % (20.5-51.1); MCH 29.3 PG (27-31); MCHC 31.7 g/dL (33-37); MCV 92.4 FL (81-99); MONO# 0.53 X1000 (0.11-0.59); MONO% 5.4 % (1.7-9.3); MPV 11.4 FL (7.4-10.4); NEUT% 77.4 % (42.2-75.2); PLT 182 X1000 (130-400); RBC 5.16 XMIL (4.7-6.1); RDW 17.1 % (11.5-14.5); WBC 9.83 X1000 (4.8-10.8)
[2019-08-12 07:54] LABS: ALB/GLOB RATIO 0.8; ALBUMIN 3.3 g/dL (3.5-5.0); CALCIUM 9.1 mg/dL (8.8-10.2); CREATININE 2.1 mg/dL (0.7-1.2); POTASSIUM 4.2 mmol/L (3.5-5.1); TOTAL BILIRUBIN 1.47 mg/dL (0.20-1.00); TOTAL PROTEIN 7.2 g/dL (6.3-8.3)
[2019-08-12] MEDS: NEURONTIN PO SCH ×3 (09:16→16:32)
[2019-08-12] MEDS: APRESOLINE PO SCH ×3 (09:17→21:21)
[2019-08-12] MEDS: SAMSCA PO SCH (09:18)
[2019-08-12] MEDS: ISORDIL PO SCH ×3 (09:18→21:23)
[2019-08-12] MEDS: COLACE PO SCH ×2 (09:19→21:22)
[2019-08-12] MEDS: MYCOSTATIN SUSP PO SCH ×4 (09:19→21:23)
[2019-08-12] MEDS: ALDACTONE PO SCH (09:19)
[2019-08-12] MEDS: COREG PO SCH ×2 (09:19→21:22)
[2019-08-12] MEDS: KLOR-CON PO SCH ×2 (09:19→21:22)
[2019-08-12] MEDS: LASIX IV SCH ×2 (09:20→21:26)
--- NOTE | 2019-08-12 11:38 | Diag Imaging Result Doc PS360 ---
CT ABDOMEN/PELVIS W/O CONTRAST - 08/12/2019 INDICATION: fluid COMPARISON: Chest CT 08/06/2019 FINDINGS: There are pacemaker leads in the heart. There is interstitial pulmonary edema in the lung bases similar to prior. There are trace pleural effusions. There is significant body wall edema similar to prior. There is a penile prosthesis. There is some stable dense material in the gallbladder. Otherwise abdominal organs all appear normal. No renal stones or urinary obstruction. There is significant diffuse constipation. Urinary bladder and rectum are normal. No abdominal free air, free fluid, or lymphadenopathy. There are moderate degenerative changes of the spine. No acute or suspicious bony lesion. IMPRESSION: 1. Congestive heart failure. 2. Significant body wall edema. 3. Constipation. This exam was performed using automated exposure control, adjustment of mA or kV according to patient size, and/or use of iterative reconstruction technique Electronically signed by Oswaldo Blackman 08/12/2019 11:35 AM
--- NOTE | 2019-08-12 14:09 | CARDIOLOGY PROGRESS NOTE ---
DATE: 08/12/2019 SUBJECTIVE: Mr. Ace continues to complain of issues with edema. He continues to be somewhat short of breath. OBJECTIVE: Vital Signs: He is afebrile. His heart rate is 97. His blood pressure is 121/72. His I's and O's continue to be markedly negative over the last 24-48 hours. He has been negative around 9 L. General: He is in no acute distress. Cardiovascular: He is in a regular rate and rhythm. He has no obvious murmurs. He has marked bilateral lower extremity edema with warm and well perfused extremities. Respiratory: His chest exam has bilateral rales in the bases. He has no increased work of breathing. Abdomen: His abdomen is soft, nontender, marked body wall edema is noted. DIAGNOSTIC DATA: He had a chest x-ray demonstrating cardiomegaly. His abdomen and pelvis CT demonstrates a congestive heart failure with significant body wall edema and constipation. His lab data shows a proBNP which is 2750. This is down from a peak of 5351. His sodium is 134. Potassium 4.2, BUN 78, creatinine is 2.1 which has been a slight trend up over the last few days. His total bilirubin Jauregui is 1.47. This is relatively flat over the hospitalization. His white count is 9.8. Hematocrit 47. ASSESSMENT: Mr. Ace is a 54-year-old gentleman with nonischemic cardiomyopathy. PLAN: We have significantly escalated his medicines in the interim. He is on hydralazine 75 t.i.d. Lasix 80 IV b.i.d., Coreg 3.125 b.i.d. and Isordil 40 mg t.i.d. We also added in spironolactone 50 mg daily and he is receiving Samsca over the last several days. We have had a significant diuresis in this patient although his weights do not seem to reflect this. His standing weight today was 337, he had a standing weight of 339 on the . This was despite what appears to be at least 9 L of diuresis over that time. This does not seem to coordinate. Clinically, we do not seem to be diuresing him well based on his physical exam. His proBNP has dropped slightly. We have advanced medications significantly. I am concerned that the patient may not be compliant with his dietary restrictions in the room. I will likely transition him down to the [facility] tomorrow for monitoring over the weekend and continue diuresis. We will likely try a trial of inotropes over the weekend and see what kind of improvement we make with that methodology. cc: Gianni Rosenberg MD
[2019-08-12] MEDS: FLOMAX PO PRN (14:36)
[2019-08-12] MEDS: LACTULOSE PO SCH ×2 (14:36→21:25)
[2019-08-12] MEDS: LANTUS INSULIN SUBQ SCH (14:37)
[2019-08-12] MEDS: MIRALAX PO SCH (14:37)
[2019-08-12] MEDS ORDERED: ZAROXOLYN PO SCH (16:15)
[2019-08-12] MEDS ORDERED: ZAROXOLYN PO ONE ×2 (17:23→18:15)
--- NOTE | 2019-08-12 18:00 | PROGRESS NOTE ---
DATE: 08/12/2019 SUBJECTIVE: The patient has no major complaints except for abdominal swelling. OBJECTIVE: Vital Signs: Blood pressure 121/72, heart rate of 97, respiratory rate of 20, temperature of 98.2 degrees, 95 percent on room air. Cardiovascular: Regular rate and rhythm. Pulmonary: Bilateral breath sounds clear to auscultation. Gastrointestinal: Abdomen was soft, protuberant, nondistended. Extremities: Still have about 2+ pitting edema. LABORATORY DATA: White count 9, hemoglobin and hematocrit 15 and 47, platelets 182,000. Creatinine 2.1, sugar 228, T bilirubin 1.47. PROBLEM LIST: 1. Acute systolic congestive heart failure exacerbation. We will continue IV Lasix. He is on Aldactone. He is on metolazone. Plan will be for dobutamine tomorrow or Milrinone at the discretion of Surgery. We cannot get him stabilized appropriately. He is diuresing but his interstitial lower extremity edema is still significant. 2. Type 2 diabetes appears to be improved. We will continue to monitor. His blood sugars are still not great but there are several below 200. So we will monitor that. 3. Hyponatremia. He is on Samsca. We will continue to follow. 4. Chronic renal failure stage 3B, stable despite diuretics. We will continue to monitor. DISPOSITION: Pending his clinical status, he is probably going to be here for a little bit longer. cc: Adalid Greenfield MD
[2019-08-13] MEDS: DUONEB (A & A) INH SCH ×5 (03:55→19:18)
[2019-08-13] MEDS: NORCO-10 PO SCH ×4 (03:57→22:08)
[2019-08-13] MEDS: TYLENOL PO PRN ×2 (04:00→19:03)
[2019-08-13] MEDS: XARELTO PO SCH (06:43)
[2019-08-13 07:17] LABS: BASO# 0.03 X1000 (0.0-0.2); BASO% 0.5 % (0.0-0.8); EOS# 0.15 X1000 (0.0-0.7); EOS% 2.3 % (0.0-10.0); HEMOGLOBIN 14.3 g/dL (14.0-18.0); LYMPH# 1.03 X1000 (1.2-3.4); LYMPH% 15.8 % (20.5-51.1); MCH 28.8 PG (27-31); MCHC 31.1 g/dL (33-37); MCV 92.6 FL (81-99); MONO# 0.43 X1000 (0.11-0.59); MONO% 6.6 % (1.7-9.3); MPV 11.2 FL (7.4-10.4); NEUT# 4.86 X1000 (1.4-6.5); NEUT% 74.8 % (42.2-75.2); PLT 185 X1000 (130-400); RBC 4.97 XMIL (4.7-6.1); RDW 16.9 % (11.5-14.5)
[2019-08-13] MEDS: HUMALOG SUBQ SCH ×4 (07:42→20:17)
[2019-08-13 08:05] LABS: ALB/GLOB RATIO 0.9; ALBUMIN 3.2 g/dL (3.5-5.0); CALCIUM 8.6 mg/dL (8.8-10.2); CREATININE 1.9 mg/dL (0.7-1.2); POTASSIUM 3.9 mmol/L (3.5-5.1); TOTAL BILIRUBIN 1.51 mg/dL (0.20-1.00); TOTAL PROTEIN 6.9 g/dL (6.3-8.3)
[2019-08-13] MEDS: MYCOSTATIN SUSP PO SCH ×4 (09:50→20:37)
[2019-08-13] MEDS: MIRALAX PO SCH (09:50)
[2019-08-13] MEDS: NEURONTIN PO SCH ×3 (09:50→17:54)
[2019-08-13] MEDS: ISORDIL PO SCH ×3 (09:51→20:37)
[2019-08-13] MEDS: ZAROXOLYN PO SCH (09:51)
[2019-08-13] MEDS: LACTULOSE PO SCH ×2 (09:51→20:37)
[2019-08-13] MEDS: COREG PO SCH ×2 (09:52→20:37)
[2019-08-13] MEDS: KLOR-CON PO SCH ×2 (09:52→20:38)
[2019-08-13] MEDS: APRESOLINE PO SCH ×3 (09:52→20:38)
[2019-08-13] MEDS: COLACE PO SCH ×2 (09:52→20:38)
[2019-08-13] MEDS: LASIX IV SCH ×2 (09:53→20:37)
[2019-08-13] MEDS: ALDACTONE PO SCH (09:53)
[2019-08-13] MEDS: SAMSCA PO SCH (09:53)
[2019-08-13] MEDS: LANTUS INSULIN SUBQ SCH (11:11)
[2019-08-13] MEDS: PRIMACOR 20 MG/D5W 100 ML 20 MG/100 ML IVPB IV SCH ×2 (14:16→19:04)
--- NOTE | 2019-08-13 19:09 | CARDIOLOGY PROGRESS NOTE ---
DATE: 08/13/2019 SUBJECTIVE: The patient reports 2 bowel movements today. Otherwise, no complaints. He continues to have issues with edema. PHYSICAL EXAMINATION: Vital Signs: Afebrile. Heart rate is in the 90s. Blood pressure 133/94. His I's and O's continue to be quite negative in the last 2 days. He has had close to 10 L of fluid negative. His cumulative I's and O's for the course of the hospitalization have been -37 L. General: No acute distress. Cardiovascular: He is in a regular rate and rhythm. He has no obvious murmurs. He has warm and well perfused extremities with 2+ bilateral lower extremity edema extending up to his abdomen. Chest: Clear to auscultation. He has no increased work of breathing. Abdomen: Soft, nontender. PERTINENT DATA: Sodium is 135. Potassium is 3.9. His BUN is 73, creatinine 1.9, which is a slight trend down from yesterday. His proBNP yesterday was 2750. ASSESSMENT: Mr. Ace is a 54-year-old gentleman with nonischemic cardiomyopathy. PLAN: We will continue to diurese the patient. His input and output are not matching to his daily weights. We have moved him to the [facility]. Will get daily standup weights. We will make a trial of low dose of an inotrope over the course of a week and see if we can affect his urine output a bit more. Currently there seems to be a significant discrepancy between his current weight and his output. cc: Gianni Rosenberg MD
[2019-08-14] MEDS: DUONEB (A & A) INH SCH ×6 (00:18→23:15)
[2019-08-14] MEDS: PRIMACOR 20 MG/D5W 100 ML 20 MG/100 ML IVPB IV SCH ×5 (00:36→19:09)
[2019-08-14] MEDS: NORCO-10 PO SCH ×4 (04:32→21:07)
[2019-08-14] MEDS: TYLENOL PO PRN ×3 (05:14→21:08)
[2019-08-14] MEDS: XARELTO PO SCH (05:14)
[2019-08-14 06:20] LABS: CALCIUM 8.8 mg/dL (8.8-10.2); MAGNESIUM 2.2 mg/dL (1.5-2.7); POTASSIUM 3.6 mmol/L (3.5-5.1)
[2019-08-14] MEDS: HUMALOG SUBQ SCH ×4 (06:24→21:08)
[2019-08-14] MEDS: ISORDIL PO SCH ×3 (08:39→21:06)
[2019-08-14] MEDS: COLACE PO SCH ×2 (08:39→21:07)
[2019-08-14] MEDS: NEURONTIN PO SCH ×3 (08:39→17:44)
[2019-08-14] MEDS: APRESOLINE PO SCH ×3 (08:39→21:07)
[2019-08-14] MEDS: ZAROXOLYN PO SCH (08:39)
[2019-08-14] MEDS: ALDACTONE PO SCH (08:39)
[2019-08-14] MEDS: KLOR-CON PO SCH ×2 (08:39→21:08)
[2019-08-14] MEDS: COREG PO SCH ×2 (08:39→21:08)
[2019-08-14] MEDS: MIRALAX PO SCH (08:39)
[2019-08-14] MEDS: LACTULOSE PO SCH ×2 (08:40→21:06)
[2019-08-14] MEDS: LASIX IV SCH ×2 (08:40→21:08)
[2019-08-14] MEDS: MYCOSTATIN SUSP PO SCH ×5 (08:40→21:14)
[2019-08-14] MEDS: LANTUS INSULIN SUBQ SCH (08:43)
[2019-08-14] MEDS: FLOMAX PO PRN (08:43)
[2019-08-14] MEDS ORDERED: POTASSIUM CHLORIDE 20% LIQUID PO ONE (12:00)
[2019-08-14] MEDS ORDERED: COLCRYS PO PRN (12:15)
--- NOTE | 2019-08-14 12:41 | CARDIOLOGY PROGRESS NOTE ---
DATE: 08/14/2019 SUBJECTIVE: Mr. Ace reports continued issues with edema. He has some right knee pain. There was no traumatic injury. PHYSICAL EXAMINATION: Vital Signs: He is afebrile. His heart rates seem to be in the 90s to low 100s. Blood pressure is 130/68. His input and output continues to be quite negative over the last 24 to 48 hours. He is around 8 to 9 L negative. His weight on standup weight yesterday was 339 and today 338. General: No acute distress. Cardiovascular: He is in a regular rate and rhythm. He has no murmurs. He has no S3. He has marker bilateral lower extremity edema. Chest: Exam is clear bilaterally. He has no increased work of breathing. Abdomen: His abdomen is soft and nontender. PERTINENT DATA: His sodium is 126, potassium 3.6, BUN 73, and his creatinine is 2 which is roughly stable. His proBNP is 2817 which is roughly stable from the 30th. PLAN: I will stop the metolazone and initiate him on Samsca 30 mg to be started tomorrow. I will replete his potassium. I have discussed the case with the nurses regarding close watching of his intake. I cannot adequately explain why the patient has a net fluid balance of -41 L during the course of the hospitalization while we have an admission weight of 341 pounds and today it is 338 pounds. There is a large discrepancy in our dataset and I cannot correlate where the error is coming from. The patient is adamant that he is not taking in an excess of fluids and reports that any extra fluid that he is taking over his dietary tray he is reporting to the nurses. Again, he has a net fluid balance of -41 L. cc: Gianni Rosenberg MD
--- NOTE | 2019-08-14 15:31 | PROGRESS NOTE ---
DATE: 08/14/2019 SUBJECTIVE: He still feels like he has not lost a lot of fluid. He is having a lot of pain in his knee. Blood pressure 130/68, heart rate 100, respiratory rate 18, temperature 97.2 degrees, 94 percent on CPAP.Cardiovascular: Regular rate and rhythm. Pulmonary: Bilateral breath sounds clear to auscultation. GI: Was soft, nontender, nondistended. Bowel sounds are positive. He does have some swelling over his right knee. LABS: Sodium is down to 126, creatinine of 2, sugar 176, mag is 2.2, potassium 3.6. PROBLEM: 1. Acute systolic congestive heart failure exacerbation. We will continue IV diuretics. He is on Aldactone, metolazone, he is on Milrinone. He is still diuresing pretty well. He has put out a total of 41 L of diuresis if this recording is accurate and he put out 3900 yesterday, 5200 the day before so he is diuresing well but his weights are still somewhat elevated. He has dropped a couple pounds though he came in at 341 then went up to 348 and now he is down to 338 but he was 339 yesterday, 337 the day before 340 so we will see how things look. 2. Acute gouty arthritis. I think he has a history of gout, he certainly been on diuretics. I think Dr. Rosenberg has added colchicine. We cannot really use NSAIDs, we would prefer avoiding corticosteroids but that may be required if he is not much improved. We will continue to follow. cc: Adalid Greenfield MD
[2019-08-15] MEDS: PRIMACOR 20 MG/D5W 100 ML 20 MG/100 ML IVPB IV SCH ×4 (02:01→20:09)
[2019-08-15] MEDS: NORCO-10 PO SCH ×4 (05:00→21:06)
[2019-08-15] MEDS: XARELTO PO SCH (05:00)
[2019-08-15] MEDS: HUMALOG SUBQ SCH ×4 (06:21→21:06)
[2019-08-15] MEDS: TYLENOL PO PRN ×2 (06:32→20:08)
[2019-08-15 06:33] LABS: BASO# 0.01 X1000 (0.0-0.2); BASO% 0.1 % (0.0-0.8); EOS# 0.11 X1000 (0.0-0.7); EOS% 1.5 % (0.0-10.0); HEMATOCRIT 43.4 % (42.0-52.0); HEMOGLOBIN 13.8 g/dL (14.0-18.0); IMM GRAN# 0.02 X1000 (0.0-0.04); IMM GRAN% 0.3 % (0.0-0.5); LYMPH# 0.71 X1000 (1.2-3.4); LYMPH% 9.4 % (20.5-51.1); MCH 29.2 PG (27-31); MCHC 31.8 g/dL (33-37); MCV 91.9 FL (81-99); MONO# 0.54 X1000 (0.11-0.59); MONO% 7.2 % (1.7-9.3); MPV 10.9 FL (7.4-10.4); NEUT# 6.15 X1000 (1.4-6.5); NEUT% 81.5 % (42.2-75.2); PLT 183 X1000 (130-400); RBC 4.72 XMIL (4.7-6.1); RDW 16.9 % (11.5-14.5); WBC 7.54 X1000 (4.8-10.8)
[2019-08-15 07:20] LABS: CALCIUM 9.1 mg/dL (8.8-10.2); MAGNESIUM 2.6 mg/dL (1.5-2.7); POTASSIUM 4.1 mmol/L (3.5-5.1); URIC ACID 10.8 mg/dL (3.4-7.0)
[2019-08-15] MEDS: DUONEB (A & A) INH SCH ×5 (07:41→23:22)
[2019-08-15] MEDS ORDERED: SAMSCA PO ONE (09:00)
[2019-08-15] MEDS: ALDACTONE PO SCH (09:31)
[2019-08-15] MEDS: MYCOSTATIN SUSP PO SCH ×4 (09:31→20:08)
[2019-08-15] MEDS: NEURONTIN PO SCH ×3 (09:31→17:01)
[2019-08-15] MEDS: MIRALAX PO SCH (09:31)
[2019-08-15] MEDS: KLOR-CON PO SCH ×2 (09:32→20:08)
[2019-08-15] MEDS: COLCRYS PO SCH (09:32)
[2019-08-15] MEDS: LASIX IV SCH ×3 (09:33→17:02)
[2019-08-15] MEDS: COREG PO SCH ×2 (09:33→20:08)
[2019-08-15] MEDS: ISORDIL PO SCH ×3 (09:34→20:08)
[2019-08-15] MEDS: LANTUS INSULIN SUBQ SCH (09:34)
[2019-08-15] MEDS: COLACE PO SCH ×2 (09:36→20:08)
[2019-08-15] MEDS: LACTULOSE PO SCH ×2 (09:36→20:09)
[2019-08-15] MEDS: APRESOLINE PO SCH ×3 (09:37→20:09)
[2019-08-15] MEDS ORDERED: MOTRIN PO ONE (12:01)
--- NOTE | 2019-08-15 14:59 | CARDIOLOGY PROGRESS NOTE ---
DATE: 08/15/2019 SUBJECTIVE: Mr. Ace continues to have of edema, right knee pain, headache. PHYSICAL EXAMINATION: Physically, he is afebrile. His heart rates are in the low 100s. His blood pressure is 139/79. His Is and Os continue to be markedly negative. His cumulative Is and Os are -42 L for the course of the hospitalization. His weight on the 30 was 340. Today, it is 335. Generally, no acute distress. Cardiovascular: He is in a mildly tachycardic but regular rhythm. He has no murmurs. He has marked bilateral lower extremity edema with a continued distention of his JVP. He has warm and well perfused extremities. His chest exam sounds clear bilaterally. He has no increased work of breathing. Abdomen is soft, nontender, with pitting edema present. LABORATORY DATA: Sodium 134, potassium is 4.1, BUN 62, creatinine is 2.0 which is relatively stable. His proBNP is 3931. His magnesium level is 2.6. ASSESSMENT: Mr. Ace is a 54-year-old gentleman with nonischemic cardiomyopathy. PLAN: He has had a slight drop in his weight over the last few days but still, this is not in agreement with his significant diuresis that has occurred over the last several days. I am suspicious that the patient is having some exogenous fluid intake that we are not tracking. I have discussed this with the nurses and they have been attempting over the last 24 to 48 hours to monitor his Is and Os very closely but my suspicion is that he may be getting extra fluid intake that is not being recorded. Notably, his Is and Os yesterday had an intake at 2259 and prior to that, he was in the 1 to 1.5 L range. Again, my suspicion is that we were probably not giving accurate Is and Os previously. We will stop the milrinone in the morning. I will increase his Lasix up to t.i.d. today to again try to push his fluid removal. The patient likely will be discharged Friday. He is hinting at that presently and I believe he would like to go home regardless of his clinical situation. cc: Gianni Rosenberg MD
--- NOTE | 2019-08-15 16:07 | PROGRESS NOTE ---
DATE: 08/15/2019 SUBJECTIVE: The patient still feels short winded. He feels a little bit better today, more talkative, but overall he is very frustrated with the slowness in getting all his fluid off despite the large amounts of diuresis. OBJECTIVE: Vital Signs: Blood pressure 139/79, heart rate of 108, respiratory rate of 15, temperature 97.5 degrees, O2 saturation 91% on room air. Cardiovascular: Regular rate and rhythm. Pulmonary: Bilateral breath sounds clear to auscultation. Abdomen: Soft, nontender, nondistended. Bowel sounds are positive. PROBLEM LIST: 1. Acute systolic congestive heart failure exacerbation. Still kind of hanging out here, diuresing, not quite getting it all off, but he is diuresing very well. He is currently on Milrinone. There was some discussion about doing a home Milrinone infusion. We will see how things go. 2. Hyponatremia. That has improved with Samsca. Continue. 3. Gouty arthritis of the knee. His uric acid level is 10.8, so he is definitely hyperuricemic. I have scheduled his colchicine. We will continue to follow. ProBNP is still elevated. 4. Diabetes type 2. We will continue to follow closely. DISPOSITION: We are going to continue treatments as such. Continue diuresis. Continue Milrinone for 24 hours. He is kind of fed up with the situation. He was just here not too long ago, not at our facility but in [place], and still had a lot of fluid. Explained that his CHF was progressing. I mean he is not quite at stage IV, but he is getting there and treatment options are limited. I discussed with him about transplant but he refuses to discuss, but he does not want to pursue a transplant workup. I do not know if he would even qualify but I we are going to continue to monitor. cc: Adalid Greenfield MD
[2019-08-16] MEDS: PRIMACOR 20 MG/D5W 100 ML 20 MG/100 ML IVPB IV SCH (02:11)
[2019-08-16] MEDS: NORCO-10 PO SCH ×2 (05:05→09:16)
[2019-08-16] MEDS: XARELTO PO SCH (05:05)
[2019-08-16] MEDS: HUMALOG SUBQ SCH ×2 (06:17→12:08)
[2019-08-16 07:16] LABS: CALCIUM 8.7 mg/dL (8.8-10.2); CREATININE 2.2 mg/dL (0.7-1.2); MAGNESIUM 2.7 mg/dL (1.5-2.7)
[2019-08-16] MEDS ORDERED: SAMSCA PO ONE (08:41)
[2019-08-16] MEDS: DUONEB (A & A) INH SCH ×2 (08:43→11:33)
[2019-08-16] MEDS: TYLENOL PO PRN (09:09)
[2019-08-16] MEDS: LANTUS INSULIN SUBQ SCH (09:09)
[2019-08-16] MEDS: LASIX IV SCH ×2 (09:12→13:47)
[2019-08-16] MEDS: MYCOSTATIN SUSP PO SCH ×2 (09:13→13:47)
[2019-08-16] MEDS: KLOR-CON PO SCH (09:13)
[2019-08-16] MEDS: NEURONTIN PO SCH ×2 (09:16→13:47)
[2019-08-16] MEDS: COREG PO SCH (09:16)
[2019-08-16] MEDS: COLCRYS PO SCH (09:16)
[2019-08-16] MEDS: APRESOLINE PO SCH ×2 (09:17→15:09)
[2019-08-16] MEDS: COLACE PO SCH (09:17)
[2019-08-16] MEDS: ISORDIL PO SCH ×2 (09:17→15:09)
[2019-08-16] MEDS: LACTULOSE PO SCH (09:19)
[2019-08-16] MEDS: ALDACTONE PO SCH (09:20)
[2019-08-16] MEDS: MIRALAX PO SCH (09:24)
[2019-08-16 11:45] VITALS: BP 118/89
--- NOTE | 2019-08-16 14:12 | PROGRESS NOTE ---
DATE: 08/16/2019 SUBJECTIVE: Patient has no major complaints. He does not really feel any better. He is requesting to go home. He says he does not feel any better after this much diuresis which, if his urine output is to be believed, his total urine output has been 63,000 L but yet, he does not really feel any better. He has been negative 1 L yesterday, 514 the day before or ongoing now. His physical exam is unchanged. I think his lower extremity edema is somewhat less but he still has fairly tight legs. ASSESSMENT AND PLAN: 1. Acute congestive heart failure exacerbation. We will continue to follow. He is continuing to diuresis. He is on milrinone, which I think has been discontinued. 2. Hyponatremia is improving on Samsca. Plan will be to go home at some point. 3. Gouty arthritis, improved on colchicine. 4. Type 2 diabetes. We will continue treatment. 5. Disposition. We will see what Dr. Rosenberg says today. At this point, if he wants to leave, it will be against medical advice but I will have Dr. Rosenberg re-evaluate him and discuss about discharge planning. cc: Adalid Greenfield MD
[2019-08-16] MEDS ORDERED: SANTYL OINT TOP SCH (15:15)
--- NOTE | 2019-08-16 15:58 | CARDIOLOGY PROGRESS NOTE ---
DATE: 08/16/2019 SUBJECTIVE: Mr. Ace continues to complain of edema. He has no breathing problems. He reports he is ready to go home as he has been in the hospital for 2 weeks. PHYSICAL: Afebrile. Heart rate is in the low 100s. Blood pressure 118/89. His cumulative intake and output is -43 L. General: No acute distress. Cardiovascular: He is in a mildly tachycardic but regular rhythm. He has no murmurs. He has no S3. He has marked bilateral lower extremity edema. His chest exam sounds clear. He has no increased work of breathing. PERTINENT DATA: Sodium 132, potassium 4, his BUN is 66, creatinine is 2.2. His proBNP is 3888 which is relatively stable from yesterday. ASSESSMENT: Mr. Ace is a 54-year-old gentleman with a nonischemic cardiomyopathy. PLAN: He continues to have a large discrepancy in his intake and output versus weights. Since August 10 when we have been doing standup weights, his initial weight was 339, his weight today is 341. He has had 23.6 L negative on his fluid balance suggesting his weight should be down in the 40-50 pound range even if it was just marginally accurate. We are actually up 2 pounds from 339 to 341 over that same time. His urine output has been fairly aggressive over that time period being anywhere from 2.8 L out on a minimum to a max of 6.4 L of urine output. At this point, there has to be a discrepancy in his intake. I believe most likely the patient is taking exogenous fluid. I have aggressively increased his hydralazine to 100 mg t.i.d. He has had an increase in his Isordil to 40 mg from 10 mg. We have added in spironolactone at 50 mg daily. The patient takes torsemide at home instead of furosemide. It would be reasonable to try to increase it to 60 b.i.d. I will have him follow up in the office in 1 week. We will check a basic metabolic panel at that time. cc: Gianni Rosenberg MD
--- NOTE | 2019-09-17 11:19 | DISCHARGE SUMMARY ---
ADMISSION DATE: 08/02/2019 DISCHARGE DATE: 08/16/2019 DISCHARGE DIAGNOSES: 1. Acute congestive heart failure exacerbation. 2. Chronic obstructive pulmonary disease. 3. OPD. 4. Peripheral vascular disease. 5. Coronary artery disease. 6. Diabetes. 7. Hyponatremia. 8. Acute on chronic kidney injury. CONSULTATIONS: Gianni Rosenberg MD, Cardiology. HOSPITAL COURSE: Briefly, this is a 54-year-old male with significant heart failure, EF around 13%, coming in with diffuse swelling in his lower extremities. He was placed on high-dose diuretics. Most of his edema and third spacing was in his lower extremities. The patient was seen by Dr. Rosenberg. He had an ICD placed. He was placed on Samsca for hyponatremia, hydralazine, Isordil, metolazone, Coreg. We had a difficult time trying to get most of the fluid off and not really a clear source. That being said, he diuresed profusely, 1500 and 1100 all tolled reportedly total urine output was 64 L. He was 44 L negative. We eventually moved him at some point to go on Milrinone. CT showed some heart failure. The patient is stabilizing. He is still very edematous. Kidney function is a 3B beta sohail. By the the patient just really wanted to go home. He did not feel like he necessarily had been improving, although he had diuresed significantly. His medications were adjusted and follow up with Dr. Rosenberg as an outpatient. DISCHARGE MEDICATIONS: Potassium 40 at bedtime, Flomax 0.4 daily, gabapentin 300 t.i.d., Lantus 22 daily, Klor-Con 60 daily and there are different orders, Aldactone 50 daily, hydralazine 100 t.i.d., Colcrys 0.6 daily, Coreg 3.125 b.i.d., Isordil 40 t.i.d., Lantus 26 daily, Lasix 80 b.i.d., and [place]. DISCHARGE CONDITION: Is stable. FOLLOWUP: Follow up with Dr. Rosenberg. cc: MD Loly Estrada CRNP
== END 2019-08-16 16:52 | disposition home or self-care (01) | DRG 291 ==
LOC: SUPCPDRO → ED 15:09 → SUATTDRO 19:38 → EDIPHOLD 19:38 → 4N 23:48 → 2N 08-13 12:35
PROVIDERS: ATTEND Internal Medicine